=== PATIENT | female | born 1935 | race Caucasian/White ===

== ENCOUNTER 2017-10-12 16:26 | Emergency (ER) | payer MEDICARE, OTHER ==
[2017-10-12] MEDS ORDERED: Sodium Chloride 0.9% 10 ML Syringe FLUSH PRN (16:42)
[2017-10-12 17:21] VITALS: BP 149/76
[2017-10-12 17:38] LABS: CHLORIDE,CL 103 mmol/L (98-107); SODIUM,NA 141 mmol/L (136-145)
[2017-10-12] MEDS ORDERED: Acetaminophen/HYDROcodone 325-10 MG Tab PO ONE (17:38)
--- NOTE | 2017-10-12 17:46 | EDM.PDOC ---
ED HPI GENERAL MEDICAL PROBLEM - General Chief Complaint: General Time Seen by Provider: 10/12/17 16:30 Source of Information: Reports: Patient History Limitations: Reports: No Limitations - History of Present Illness INITIAL COMMENTS - FREE TEXT/NARRATIVE: Pt. presents to ER with complaints of pain across her upper back. Pt. states that she was going out to feed her cat earlier today when the discomfort started. She states that it was a dull pain across her upper back. She states that she felt somewhat lightheaded at the onset of symptoms. She was no diaphoretic. No shortness of breath. No nausea, vomiting, or diarrhea. She has a history of a AAA which they are monitoring and treating conservatively. She is adamant that she does not want to be in the hospital and questions why she needed to be seen in the ER. She states that the discomfort lasted a few seconds and resolved. Onset: Today Location: Reports: Back Quality: Reports: Ache, Dull - Related Data Allergies Allergy/AdvReac Type Severity Reaction Status Date / Time No Known Allergies Allergy Verified 10/12/17 16:52 Home Meds: Home Meds Cyclobenzaprine [Flexeril] 10 mg PO BID PRN 07/14/14 [History] Gabapentin 100 mg PO TID 07/14/14 [History] Hydrocodone/Acetaminophen [Hydrocodon-Acetaminophn 10-325] 1 cap PO Q4H PRN [History] Metoprolol Tartrate [Lopressor] 25 mg PO BEDTIME 07/14/14 [History] Metoprolol Tartrate [Lopressor] 50 mg PO DAILY 07/14/14 [History] Pantoprazole [Protonix] 40 mg PO DAILY 07/14/14 [History] Social & Family History - Tobacco Use Smoking Status *Q: Former Smoker Years of Tobacco use: 40 Used Tobacco, but Quit: Yes Month/Year Tobacco Last Used: Jun 2016 - Alcohol Use Days Per Week of Alcohol Use: 0 - Recreational Drug Use Recreational Drug Use: No ED ROS GENERAL - Review of Systems Review Of Systems: See Below Constitutional: Reports: No Symptoms HEENT: Reports: No Symptoms Respiratory: Reports: No Symptoms Cardiovascular: Reports: No Symptoms Endocrine: Reports: No Symptoms GI/Abdominal: Reports: No Symptoms : Reports: No Symptoms Musculoskeletal: Reports: Back Pain (upper back) Skin: Reports: No Symptoms Neurological: Reports: No Symptoms Psychiatric: Reports: No Symptoms Hematologic/Lymphatic: Reports: No Symptoms Immunologic: Reports: No Symptoms ED EXAM, GENERAL - Physical Exam Exam: See Below Exam Limited By: No Limitations General Appearance: Alert, WD/WN, No Apparent Distress Ears: Normal External Exam, Normal Canal, Hearing Grossly Normal, Normal TMs Ear Exam: Bilateral Ear: Auricle Normal, Canal Normal, TM normal Nose: Normal Inspection, Normal Mucosa, No Blood Throat/Mouth: Normal Inspection, Normal Lips, Normal Teeth, Normal Gums, Normal Oropharynx, Normal Voice, No Airway Compromise Head: Atraumatic, Normocephalic Neck: Normal Inspection, Supple, Non-Tender, Full Range of Motion Respiratory/Chest: No Respiratory Distress, Lungs Clear, Normal Breath Sounds, No Accessory Muscle Use, Chest Non-Tender Cardiovascular: Normal Peripheral Pulses, Regular Rate, Rhythm, No Edema, No Gallop, No JVD, No Murmur, No Rub Peripheral Pulses: 3+: Posterior Tibial (L), Posterior Tibial (R), Dorsalis Pedis (L), Dorsalis Pedis (R) GI/Abdominal: Normal Bowel Sounds, Soft, Non-Tender, No Organomegaly, No Distention, No Abnormal Bruit, No Mass (Female) Exam: Normal External Exam, Normal Speculum Exam, Normal Bimanual Exam Rectal (Female) Exam: Deferred Back Exam: Normal Inspection, Full Range of Motion, Other (upper back pain) Extremities: Normal Inspection, Normal Range of Motion, Non-Tender, Normal Capillary Refill, No Pedal Edema Neurological: Alert, Oriented, CN II-XII Intact, Normal Cognition, Normal Gait, Normal Reflexes, No Motor/Sensory Deficits Psychiatric: Normal Affect, Normal Mood Skin Exam: Warm, Dry, Intact, Normal Color, No Rash Lymphatic: No Adenopathy EKG INTERPRETATION EKG Interpretation Comments: ectopic atrial rhythm withPVCs,No acute ST changes. Evidence of LVH and intraventricular conduction delay. Course - Vital Signs Last Recorded V/S: Last Vital Signs Temp 35.7 C 10/12/17 16:30 Pulse 99 10/12/17 16:30 Resp 20 10/12/17 16:30 BP 149/76 H 10/12/17 16:30 Pulse Ox 98 10/12/17 16:30 - Orders/Labs/Meds Orders: Active Orders 24 hr Category Date Time Status EKG Documentation Completion [RC] STAT Care 10/12/17 16:42 Active Chest Abdomen Pelvis w Cont [CT] Stat Exams 10/12/17 17:50 Taken Peripheral IV Insertion Adult [OM.PC] Routine Oth 10/12/17 16:42 Ordered Labs: Laboratory Tests 10/12/17 10/12/17 10/12/17 Range/Units 17:06 17:06 17:06 WBC 5.4 (4.0-10.0) x10^3/uL RBC 3.74 L (4.00-5.50) x10^6/uL Hgb 12.5 (12.0-16.0) g/dL Hct 37.3 (33.0-47.0) % MCV 99.7 H (78.0-93.0) fL MCH 33.4 H (26.0-32.0) pg MCHC 33.5 (32.0-36.0) g/dL RDW Coeff of [place] 13.6 (10.0-15.0) % Plt Count 222 (130-400) x10^3/uL Neut % (Auto) 69.9 (50.0-80.0) % Lymph % (Auto) 17.9 L (25.0-50.0) % [place] % (Auto) 10.5 (2.0-11.0) % Eos % (Auto) 1.5 (0.0-4.0) % Baso % (Auto) 0.2 (0.2-1.2) % PT 10.0 (9.8-11.8) SEC INR 0.9 L (2.0-3.5) D-Dimer, Quantitative 0.89 H (<=0.58) mg/LFEU Sodium 141 (136-145) mmol/L Potassium 4.2 (3.5-5.1) mmol/L Chloride 103 (98-107) mmol/L Carbon Dioxide 29 (21-32) mmol/L Anion Gap 13.2 (10-20) mmol/L BUN 26 H (7-18) mg/dL Creatinine 1.1 H (0.55-1.02) mg/dL Est Cr Clr Drug Dosing 34.47 mL/min Estimated GFR (MDRD) 48 Glucose 134 H (74-106) mg/dL Calcium 8.8 (8.5-10.1) mg/dL Corrected Calcium 9.04 (8.5-10.1) mg/dL Total Bilirubin 0.4 (0.2-1.0) mg/dL AST 19 (15-37) U/L ALT 29 (14-59) U/L Alkaline Phosphatase 50 (46-116) U/L Troponin I < 0.017 (<=0.056) ng/mL C-Reactive Protein < 0.2 (<=0.9) mg/dL Total Protein 7.0 (6.4-8.2) g/dL Albumin 3.7 (3.4-5.0) g/dL Globulin 3.3 Albumin/Globulin Ratio 1.12 Meds: Medications Discontinued Medications Generic Name Dose Route Start Last Admin Trade Name Freq PRN Reason Stop Dose Admin Hydrocodone Bitart/Acetaminophen 1 tab 10/12/17 17:38 10/12/17 17:46 [place] 325-10 Mg PO 10/12/17 17:39 1 tab ONETIME ONE Administration Iopamidol 100 ml 10/12/17 17:53 10/12/17 18:02 Isovue-300 (61%) IVPUSH 10/12/17 17:54 100 ml ONETIME ONE Administration Sodium Chloride 10 ml 10/12/17 16:42 Saline Flush FLUSH ASDIRECTED PRN Keep Vein Open - Radiology Interpretation Free Text/Narrative:: CT chest, abdomen, pelvis obtained. No new aneurysm noted. No other cause for discomfort identified. - Re-Assessments/Exams Free Text/Narrative Re-Assessment/Exam: Pt. had no further recurrence of the pain. She was offered observation admission for serial troponin, but adamantly refused, stating she needed to take care of her cat and her . Departure - Departure Time of Disposition: 19:10 Disposition: Home, Self-Care 01 Clinical Impression: Abdominal aortic aneurysm (AAA) - Discharge Information Instructions: Abdominal Aortic Aneurysm, [id number] Referrals: Yaa Jack MD [Primary Care Provider] - Forms: ED Department Discharge Additional Instructions: Return to ER if you have any increased discomfort, lightheadedness, or chest pain. Call [facility] at [phone] on Sunday to set up a followup appointment for your heart. Return to ER if you decide you want to be admitted. - My Orders Last 24 Hours: My Active Orders 10/12/17 16:42 EKG Documentation Completion [RC] STAT Peripheral IV Insertion Adult [OM.PC] Routine 10/12/17 17:50 Chest Abdomen Pelvis w Cont [CT] Stat - Assessment/Plan Last 24 Hours: My Active Orders 10/12/17 16:42 EKG Documentation Completion [RC] STAT Peripheral IV Insertion Adult [OM.PC] Routine 10/12/17 17:50 Chest Abdomen Pelvis w Cont [CT] Stat Assessment:: Upper back pain, resolved. Plan: Follow-up with Dr. Jack next week. Return to ER if you decide you want be admitted for observation to rule out heart attack. Also return if you have any increased discomfort, shortness of breath, chest pain, nausea, or vomiting.
[2017-10-12] MEDS ORDERED: Iopamidol 612 MG/ML 100 ML Bottle IVPUSH ONE (17:53)
== END 2017-10-12 19:03 | disposition home or self-care (01) ==
LOC: VM.ED 16:26
DX: I71.4 Abdominal aortic aneurysm, without rupture (principal); Z79.899 Other long term (current) drug therapy; Z87.891 Personal history of nicotine dependence
CPT/HCPCS: 36415; 71260; 74177; 80053; 84484; 85025; 85379; 85610; 86140; 93005; 99285; A9270-GY; Q9967

== ENCOUNTER 2017-11-15 18:28 | Emergency (ER) | payer MEDICARE, OTHER ==
[2017-11-15 18:38] VITALS: BP 140/92
[2017-11-15 19:46] LABS: CHLORIDE,CL 103 mmol/L (98-107); SODIUM,NA 142 mmol/L (136-145)
--- NOTE | 2017-11-15 19:57 | EDM.PDOC ---
ED HPI GENERAL MEDICAL PROBLEM - General Chief Complaint: Back Pain or Injury Stated Complaint: back pain Time Seen by Provider: 11/15/17 18:30 Source of Information: Reports: Patient, Family, RN, RN Notes Reviewed History Limitations: Reports: No Limitations - History of Present Illness INITIAL COMMENTS - FREE TEXT/NARRATIVE: Patient presents to the ED at [facility] complaining of upper back pain. Previous work up 3 weeks ago was negative for any cardiac issues. Was offered admission but declined. Patient is pain free at time of assessment. Onset: Unknown/Unsure Upper back Pain Score (Numeric/FACES): 9 - Related Data Allergies Allergy/AdvReac Type Severity Reaction Status Date / Time No Known Allergies Allergy Verified 10/12/17 16:52 Home Meds: Home Meds Cyclobenzaprine [Flexeril] 10 mg PO BID PRN 07/14/14 [History] Gabapentin 100 mg PO TID 07/14/14 [History] Hydrocodone/Acetaminophen [Hydrocodon-Acetaminophn 10-325] 1 cap PO Q4H PRN [History] Metoprolol Tartrate [Lopressor] 25 mg PO BEDTIME 07/14/14 [History] Metoprolol Tartrate [Lopressor] 50 mg PO DAILY 07/14/14 [History] Pantoprazole [Protonix] 40 mg PO DAILY 07/14/14 [History] Past Medical History HEENT History: Reports: Cataract Cardiovascular History: Reports: High Cholesterol, Hypertension, Other (See Below) Other Cardiovascular History: mitral valve disorder. Abdominal aortic aneurysm without rupture. peripheral edema Respiratory History: Reports: Other (See Below) Other Respiratory History: panlobular emphysema. dyspnea on exertion Gastrointestinal History: Reports: GERD, Other (See Below) Other Gastrointestinal History: mass of right inguinal region Genitourinary History: Reports: Other (See Below) Other Genitourinary History: chronic urethritis [employer] History: Reports: Other (See Below) Other OB/BYN History: atrophic vaginitis. vaginal itching Musculoskeletal History: Reports: Back Pain, Chronic, Osteoporosis Other Musculoskeletal History: scoliosis deformity of spine. closed fx of rib. closed fx of left shoulder. lumbar facet arthropathy Endocrine/Metabolic History: Reports: Osteoporosis, Vitamin D Deficiency, Other (See Below) Other Endocrine/Metabolic History: abnormal thyroid blood test Dermatologic History: Reports: Other (See Below) Other Dermatologic History: atopic dermatitis. ulcer of elbow - Past Surgical History HEENT Surgical History: Reports: Tonsillectomy Female Surgical History: Reports: Cystoscopy, Tubal Ligation Musculoskeletal Surgical History: Reports: Other (See Below) Other Musculoskeletal Surgeries/Procedures:: lumbar radiculopathy. degeneration of lumbar or lumbosacral intervertebral disc ED ROS GENERAL - Review of Systems Review Of Systems: See Below Constitutional: Denies: Fever, Chills, Weakness Respiratory: Denies: Shortness of Breath, Cough Cardiovascular: Reports: Chest Pain. Denies: Palpitations GI/Abdominal: Denies: Abdominal Pain, Nausea, Vomiting Skin: Reports: No Symptoms Neurological: Reports: No Symptoms. Denies: Dizziness, Headache ED EXAM, UPPER BACK/NECK PAIN - Physical Exam Exam: See Below Exam Limited By: No Limitations General Appearance: Alert, No Apparent Distress Nexus Criteria: No: Altered Level of Consciousness, Focal Neurological Deficit Cardiovascular/Respiratory: Regular Rate, Rhythm, No M/R/G GI/Abdominal: Normal Bowel Sounds, Soft, Non-Tender Back Exam: Normal Inspection, Full Range of Motion, Muscle Spasm Neurologic: Alert, Oriented x 3 Skin Exam: Normal Color, Warm/Dry Course - Vital Signs Last Recorded V/S: Last Vital Signs Temp 36.0 C 11/15/17 18:34 Pulse 103 H 11/15/17 18:34 Resp 18 11/15/17 18:34 BP 140/92 H 11/15/17 18:34 Pulse Ox 98 11/15/17 18:34 - Orders/Labs/Meds Orders: Active Orders 24 hr Category Date Time Status EKG 12 Lead [EKG Documentation Completion] [RC] STAT Care 11/15/17 19:01 Active BASIC METABOLIC PANEL,BMP [CHEM] Stat Lab 11/15/17 19:17 Received CREATINE KINASE,CK [CHEM] Stat Lab 11/15/17 19:17 Received TROPONIN I [CHEM] Stat Lab 11/15/17 19:17 Received Labs: Laboratory Tests 11/15/17 Range/Units 19:17 WBC 5.9 (4.0-10.0) x10^3/uL RBC 3.71 L (4.00-5.50) x10^6/uL Hgb 12.5 (12.0-16.0) g/dL Hct 37.9 (33.0-47.0) % MCV 102.2 H (78.0-93.0) fL MCH 33.7 H (26.0-32.0) pg MCHC 33.0 (32.0-36.0) g/dL RDW Coeff of [place] 13.5 (10.0-15.0) % Plt Count 252 (130-400) x10^3/uL Neut % (Auto) 67.6 (50.0-80.0) % Lymph % (Auto) 18.9 L (25.0-50.0) % [place] % (Auto) 10.8 (2.0-11.0) % Eos % (Auto) 2.4 (0.0-4.0) % Baso % (Auto) 0.3 (0.2-1.2) % Departure - Departure Time of Disposition: 19:58 Disposition: Home, Self-Care 01 Condition: Good Clinical Impression: Atypical chest pain - Discharge Information Instructions: Nonspecific Chest Pain Referrals: Yaa Jack MD [Primary Care Provider] - Additional Instructions: SEe your PCP - Problem List Review Problem List Initiated/Reviewed/Updated: Yes - My Orders Last 24 Hours: My Active Orders 11/15/17 19:01 EKG 12 Lead [EKG Documentation Completion] [RC] STAT 11/15/17 19:17 BASIC METABOLIC PANEL,BMP [CHEM] Stat CREATINE KINASE,CK [CHEM] Stat TROPONIN I [CHEM] Stat - Assessment/Plan Last 24 Hours: My Active Orders 11/15/17 19:01 EKG 12 Lead [EKG Documentation Completion] [RC] STAT 11/15/17 19:17 BASIC METABOLIC PANEL,BMP [CHEM] Stat CREATINE KINASE,CK [CHEM] Stat TROPONIN I [CHEM] Stat Assessment:: Atypical chest pain Plan: Need stress test. See PCP for further work up no emergency found today
== END 2017-11-15 20:10 | disposition home or self-care (01) ==
LOC: VM.ED 18:28 → SUPCPDRO 18:28 → VM.ED 20:10
DX: R07.89 Other chest pain (principal); I10 Essential (primary) hypertension; Z79.899 Other long term (current) drug therapy
CPT/HCPCS: 36415; 80048; 82550; 84484; 85025; 93005; 99284

== ENCOUNTER 2019-07-13 10:06 | Emergency (ER) | payer MEDICARE, OTHER ==
[2019-07-13 10:15] VITALS: BP 122/65; PULSE 87
[2019-07-13] MEDS ORDERED: LORazepam 0.5 MG Tab PO ONE (10:56)
--- NOTE | 2019-07-13 11:14 | CR ---
[id number] RAD/RAD Chest PA And Lateral EXAM: FRONTAL AND LATERAL CHEST INDICATION: SYNCOPE, BRADYCARDIA. COMPARISON: June 15, 2018. DISCUSSION: Hyperinflation is compatible with chronic obstructive pulmonary disease. Mild scattered parenchymal scarring with no acute infiltrates identified. Minimal left effusion. Multiple chronic right rib fractures. Chronic prominence of the mediastinal contour with tortuosity of the thoracic aorta. Borderline cardiomegaly without evidence of congestive heart failure. Moderate chronic mid thoracic and mild lower thoracic compression fractures. IMPRESSION: 1. Minimal left pleural effusion. 2. Otherwise stable exam. Rajinder Farnsworth MD 07/13/19 [id number] Thank you for allowing us to participate in the care of your patient.
[2019-07-13 11:21] LABS: CHLORIDE,CL 101 mmol/L (98-107); SODIUM,NA 138 mmol/L (136-145)
[2019-07-13 11:27] LABS: ANION GAP 10.1 mmol/L (10-20)
[2019-07-13] MEDS ORDERED: Furosemide 40 MG Tab PO ONE (11:47)
[2019-07-13] MEDS ORDERED: Take Home: LORazepam 0.5 MG Tab, 2 Tab Pack PO ONE (11:47)
--- NOTE | 2019-07-13 13:16 | EDM.PDOC ---
ED HPI GENERAL MEDICAL PROBLEM - General Chief Complaint: Respiratory Problem Time Seen by Provider: 07/13/19 10:15 Source of Information: Reports: Patient, Other (neighbor) History Limitations: Reports: No Limitations - History of Present Illness INITIAL COMMENTS - FREE TEXT/NARRATIVE: Patient presents to the ER with complaints of chest pain and SOB. Patient states she has had right sided chest pain since 12 years ago from a fall. Patient states she has had SOB for some time, due to history of CHF. patient states she smokes about 5 cigarettes a day, heavy smoker in the past.States she had mold in her house and had her house cleaned but yesterday felt more SOB and thought it was from the possible residual mold in her house. She went over to her neighbors and spent the night there. Her neighbor brought her to the ER this morning due to the patient being worried about her SOB. Patient states she has edema in her legs. Patient passed November 2018. Neighbor states she has discussed living situations with patient, possibly moving her to an assisted living or elderly apartment. Neighbor believes patient needs help with taking her medication appropriately. Patient denies palpitations, productive cough, or fever. Adjustment of her diuretics has been complicated due to adjusting to her kidney disease. Patient currently takes lasix 20 mg daily. Onset Date: 07/11/19 Location: Reports: Chest Associated Symptoms: Reports: Shortness of Breath - Related Data Allergies Allergy/AdvReac Type Severity Reaction Status Date / Time No Known Allergies Allergy Verified 07/13/19 10:17 Home Meds: Home Meds Cyclobenzaprine [Flexeril] 10 mg PO TID PRN 07/14/14 [History] Hydrocodone/Acetaminophen [Hydrocodon-Acetaminophn 10-325] 1 cap PO TID [History] Pantoprazole [Protonix] 40 mg PO DAILY 07/14/14 [History] Acetaminophen [Tylenol] 650 mg PO Q6H PRN 06/15/18 [History] Alendronate [Fosamax] 70 mg PO ASDIRECTED 06/15/18 [History] Calcitonin ([place]) [Miacalcin Nasal [place]] 1 spray NS DAILY 06/15/18 [History] Calcium Carb, Citrate/Vit D3 [Citracal + D ER] 1 each PO BID 06/15/18 [History] Cholecalciferol (Vitamin D3) [D] 4,000 unit PO DAILY 06/15/18 [History] Docusate Sodium [Colace] 100 mg PO BID PRN 06/15/18 [History] Ipratropium/Albuterol Sulfate [Combivent Respimat Inhal [place]] 1 puff IH Q4H [History] Naproxen Sodium [Aleve] 220 mg PO BID PRN 06/15/18 [History] Polyethylene Glycol 3350 [MiraLAX] 32 gm PO DAILY 06/15/18 [History] Pramoxine HCl/Zinc Oxide [Hemorrhoid 1%-12.5% Ointment] 1 ea TP BID PRN [History] atorvaSTATin [Lipitor] 10 mg PO BEDTIME 06/15/18 [History] estradioL [Estrace Vaginal] 1 applic VAG BEDTIME PRN 06/15/18 [History] Carvedilol [Coreg] 12.5 mg PO BID 07/13/19 [History] Furosemide [Lasix] 20 mg PO DAILY 07/13/19 [History] Past Medical History HEENT History: Reports: Cataract Cardiovascular History: Reports: High Cholesterol, Hypertension, Other (See Below) Other Cardiovascular History: mitral valve disorder. Abdominal aortic aneurysm without rupture. peripheral edema Respiratory History: Reports: Other (See Below) Other Respiratory History: panlobular emphysema. dyspnea on exertion Gastrointestinal History: Reports: GERD, Other (See Below) Other Gastrointestinal History: mass of right inguinal region Genitourinary History: Reports: Other (See Below) Other Genitourinary History: chronic urethritis [employer] History: Reports: Other (See Below) Other [employer] History: atrophic vaginitis. vaginal itching Musculoskeletal History: Reports: Back Pain, Chronic, Osteoporosis Other Musculoskeletal History: scoliosis deformity of spine. closed fx of rib. closed fx of left shoulder. lumbar facet arthropathy Endocrine/Metabolic History: Reports: Osteoporosis, Vitamin D Deficiency, Other (See Below) Other Endocrine/Metabolic History: abnormal thyroid blood test Dermatologic History: Reports: Other (See Below) Other Dermatologic History: atopic dermatitis. ulcer of elbow - Past Surgical History HEENT Surgical History: Reports: Tonsillectomy Female Surgical History: Reports: Cystoscopy, Tubal Ligation Musculoskeletal Surgical History: Reports: Other (See Below) Other Musculoskeletal Surgeries/Procedures:: lumbar radiculopathy. degeneration of lumbar or lumbosacral intervertebral disc Social & Family History - Tobacco Use Smoking Status *Q: Current Every Day Smoker Years of Tobacco use: 30 Packs/Tins Daily: 0.2 - Recreational Drug Use Recreational Drug Use: No ED ROS GENERAL - Review of Systems Review Of Systems: See Below Constitutional: Reports: No Symptoms HEENT: Reports: No Symptoms. Denies: Vertigo Respiratory: Reports: Shortness of Breath. Denies: Wheezing, Cough, Sputum Cardiovascular: Reports: Chest Pain, Edema. Denies: Blood Pressure Problem, Claudication, Dyspnea on Exertion, Lightheadedness, Palpitations, Syncope Endocrine: Reports: No Symptoms GI/Abdominal: Reports: No Symptoms : Reports: No Symptoms Musculoskeletal: Reports: No Symptoms Skin: Reports: No Symptoms Neurological: Reports: No Symptoms Psychiatric: Reports: Anxiety Hematologic/Lymphatic: Reports: No Symptoms Immunologic: Reports: No Symptoms ED EXAM, GENERAL - Physical Exam Exam: See Below Exam Limited By: No Limitations General Appearance: Alert, Anxious Ears: Normal External Exam Nose: Normal Inspection Throat/Mouth: Normal Lips Head: Atraumatic, Normocephalic Neck: Normal Inspection Respiratory/Chest: Lungs Clear, Normal Breath Sounds Cardiovascular: Regular Rate, Rhythm, No JVD, No Murmur, Other (bilateral lower extremity edema ) (Female) Exam: Deferred Rectal (Female) Exam: Deferred Back Exam: Other (kyphosis) Extremities: Normal Inspection Neurological: Alert, Oriented, CN II-XII Intact, Normal Cognition, Normal Gait, Normal Reflexes Psychiatric: Normal Affect, Anxious Skin Exam: Warm, Dry, Intact, Normal Color, No Rash Lymphatic: No Adenopathy Course - Vital Signs Last Recorded V/S: Last Vital Signs Temp 36.7 C 07/13/19 10:06 Pulse 87 07/13/19 10:06 Resp 18 07/13/19 10:06 BP 122/65 07/13/19 10:06 Pulse Ox 94 L 07/13/19 10:06 - Orders/Labs/Meds Orders: Active Orders 24 hr Category Date Time Status EKG Documentation Completion [RC] STAT Care 07/13/19 10:29 Active Labs: Laboratory Tests 07/13/19 07/13/19 07/13/19 Range/Units 10:45 10:45 10:45 WBC 4.8 (4.0-10.0) x10^3/uL RBC 3.58 L (4.00-5.50) x10^6/uL Hgb 11.6 L (12.0-16.0) g/dL Hct 35.3 (33.0-47.0) % MCV 98.6 H D (78.0-93.0) fL MCH 32.4 H (26.0-32.0) pg MCHC 32.9 (32.0-36.0) g/dL RDW Coeff of [place] 13.8 (10.0-15.0) % Plt Count 210 (130-400) x10^3/uL Neut % (Auto) 72.0 (50.0-80.0) % Lymph % (Auto) 17.1 L (25.0-50.0) % [place] % (Auto) 9.2 (2.0-11.0) % Eos % (Auto) 1.3 (0.0-4.0) % Baso % (Auto) 0.4 (0.2-1.2) % PT 11.0 (10.0-12.8) SEC INR 1.0 L (2.0-3.5) Sodium 138 (136-145) mmol/L Potassium 4.1 (3.5-5.1) mmol/L Chloride 101 (98-107) mmol/L Carbon Dioxide 31 (21-32) mmol/L Anion Gap 10.1 (10-20) mmol/L BUN 20 H (7-18) mg/dL Creatinine 1.2 H (0.55-1.02) mg/dL Est Cr Clr Drug Dosing TNP Estimated GFR (MDRD) 43 Glucose 123 H (74-106) mg/dL Lactic Acid (0.4-2.0) mmol/L Calcium 8.9 (8.5-10.1) mg/dL Corrected Calcium 9.54 (8.5-10.1) mg/dL Magnesium 2.2 (1.8-2.4) mg/dL Total Bilirubin 0.8 (0.2-1.0) mg/dL AST 14 L (15-37) U/L ALT 15 (14-59) U/L Alkaline Phosphatase 41 L (46-116) U/L Troponin I < 0.017 (<=0.056) ng/mL C-Reactive Protein < 0.2 (<=0.9) mg/dL NT-Pro-B Natriuret Pep 39280 H (<=450) pg/mL Total Protein 6.3 L (6.4-8.2) g/dL Albumin 3.2 L (3.4-5.0) g/dL Globulin 3.1 Albumin/Globulin Ratio 1.03 07/13/19 Range/Units 10:45 WBC (4.0-10.0) x10^3/uL RBC (4.00-5.50) x10^6/uL Hgb (12.0-16.0) g/dL Hct (33.0-47.0) % MCV (78.0-93.0) fL MCH (26.0-32.0) pg MCHC (32.0-36.0) g/dL RDW Coeff of [place] (10.0-15.0) % Plt Count (130-400) x10^3/uL Neut % (Auto) (50.0-80.0) % Lymph % (Auto) (25.0-50.0) % [place] % (Auto) (2.0-11.0) % Eos % (Auto) (0.0-4.0) % Baso % (Auto) (0.2-1.2) % PT (10.0-12.8) SEC INR (2.0-3.5) Sodium (136-145) mmol/L Potassium (3.5-5.1) mmol/L Chloride (98-107) mmol/L Carbon Dioxide (21-32) mmol/L Anion Gap (10-20) mmol/L BUN (7-18) mg/dL Creatinine (0.55-1.02) mg/dL Est Cr Clr Drug Dosing Estimated GFR (MDRD) Glucose (74-106) mg/dL Lactic Acid 0.9 (0.4-2.0) mmol/L Calcium (8.5-10.1) mg/dL Corrected Calcium (8.5-10.1) mg/dL Magnesium (1.8-2.4) mg/dL Total Bilirubin (0.2-1.0) mg/dL AST (15-37) U/L ALT (14-59) U/L Alkaline Phosphatase (46-116) U/L Troponin I (<=0.056) ng/mL C-Reactive Protein (<=0.9) mg/dL NT-Pro-B Natriuret Pep (<=450) pg/mL Total Protein (6.4-8.2) g/dL Albumin (3.4-5.0) g/dL Globulin Albumin/Globulin Ratio Meds: Medications Discontinued Medications Generic Name Dose Route Start Last Admin Trade Name [place]ara PRN Reason Stop Dose Admin Furosemide 40 mg 07/13/19 11:47 07/13/19 11:53 Lasix PO 07/13/19 11:48 40 mg ONETIME ONE Administration Lorazepam 1 mg 07/13/19 10:56 07/13/19 11:02 Ativan PO 07/13/19 10:57 1 mg ONETIME ONE Administration Lorazepam 1 packet 07/13/19 11:47 07/13/19 11:54 Take Home: Lorazepam 0.5 Mg, 2 Tab Pack PO 07/13/19 11:48 1 packet ONETIME ONE Administration Departure - Departure Time of Disposition: 12:30 Disposition: Home, Self-Care 01 Clinical Impression: Congestive heart failure, Anxiety - Discharge Information Instructions: Generalized Anxiety Disorder, Adult, Lorazepam tablets, Heart Failure, [id number] Referrals: Yaa Jack MD [Primary Care Provider] - Forms: ED Department Discharge Additional Instructions: Lorazepam 0.5mg 1 tab 3 times daily as needed for anxiety Start lasix 20mg tomorrow. We will do this for 4 days, then recheck your labs. Continue with your other medications as you have been. Follow-up in clinic tomorrow or Sunday. Return to ER if you have chest pain, shortness of breath, or palpitations. Sepsis Event Note - Evaluation Sepsis Screening Result: No Definite Risk - Focused Exam Vital Signs: Vital Signs Temp Pulse Resp BP Pulse Ox 07/13/19 10:06 36.7 C 87 18 122/65 94 L Date Exam was Performed: 07/13/19 Time Exam was Performed: 13:04 - My Orders Last 24 Hours: My Active Orders 07/13/19 10:29 EKG Documentation Completion [RC] STAT - Assessment/Plan Last 24 Hours: My Active Orders 07/13/19 10:29 EKG Documentation Completion [RC] STAT Plan: Home to rest. Ativan 1 mg to take as needed for anxiety. Lasix 20 mg daily for 4 days Continue taking home daily medications, including Lasix 20 mg Follow up with PCP in 1-2 days. Recheck kidney function in clinic tomorrow or Sunday. Return to ER if any SOB, palpitations, worsening chest pain.
[2019-07-13] MEDS ORDERED: Sodium Chloride 0.9% 1,000 ML IV ONE (13:33)
== END 2019-07-13 12:11 | disposition home or self-care (01) ==
LOC: VM.ED 10:06
DX: I11.0 Hypertensive heart disease with heart failure (principal); I50.9 Heart failure, unspecified; F41.9 Anxiety disorder, unspecified; J43.1 Panlobular emphysema; E78.00 Pure hypercholesterolemia, unspecified; M81.0 Age-related osteoporosis without current pathological fracture; F17.210 Nicotine dependence, cigarettes, uncomplicated; E55.9 Vitamin D deficiency, unspecified; Z79.899 Other long term (current) drug therapy
CPT/HCPCS: 36415; 71046; 80053; 83605; 83735; 83880; 84484; 85025; 85610; 86140; 93005; 99284-GF; 99285-25; A9270-GY

== ENCOUNTER 2019-08-09 11:34 | Emergency (ER) | payer MEDICARE, OTHER ==
[2019-08-09 12:47] VITALS: BP 125/70; PULSE 87
--- NOTE | 2019-08-09 13:09 | EDM.PDOC ---
ED HPI GENERAL MEDICAL PROBLEM - General Chief Complaint: ENT Problem Stated Complaint: GLANDS SWOLLEN Time Seen by Provider: 08/09/19 12:50 Source of Information: Reports: Patient History Limitations: Reports: No Limitations - History of Present Illness INITIAL COMMENTS - FREE TEXT/NARRATIVE: Patient presents to ER with complaints of a sore throat, cough with productive phlegm. Was exposed to fur coat sewer gas on Sunday in her basement, feels like it triggered issues for her. She was seen by her doctor this week and thought her symptoms would resolve on their own. Is noting increased phlegm with green sputum now, feels more short of breath. Does have intermittent wheezing. She has history of COPD, does use an inhaler at home but does not feel it is helping. No fevers. Mild sinus congestion and drainage. No nausea/vomiting or abdominal pain. Oxygen saturation 95% on room air. Onset: Gradual Duration: Day(s):, Getting Worse Location: Reports: Head, Chest Quality: Reports: Ache Severity: Moderate Improves with: Reports: None Associated Symptoms: Reports: Cough, cough w sputum, Malaise, Shortness of Breath. Denies: Confusion, Chest Pain, Fever/Chills, Loss of Appetite, Nausea/ Vomiting Throat Pain Score (Numeric/FACES): 8 - Related Data Allergies Allergy/AdvReac Type Severity Reaction Status Date / Time No Known Allergies Allergy Verified 08/09/19 12:49 Home Meds: Home Meds Cyclobenzaprine [Flexeril] 10 mg PO TID PRN 07/14/14 [History] Hydrocodone/Acetaminophen [Hydrocodon-Acetaminophn 10-325] 1 cap PO TID [History] Pantoprazole [Protonix] 40 mg PO DAILY 07/14/14 [History] Acetaminophen [Tylenol] 650 mg PO Q6H PRN 06/15/18 [History] Alendronate [Fosamax] 70 mg PO ASDIRECTED 06/15/18 [History] Calcitonin ([place]) [Miacalcin Nasal [place]] 1 spray NS DAILY 06/15/18 [History] Calcium Carb, Citrate/Vit D3 [Citracal + D ER] 1 each PO BID 06/15/18 [History] Cholecalciferol (Vitamin D3) [D-2000] 4,000 unit PO DAILY 06/15/18 [History] Docusate Sodium [Colace] 100 mg PO BID PRN 06/15/18 [History] Ipratropium/Albuterol Sulfate [Combivent Respimat Inhal [place]] 1 puff IH Q4H [History] Naproxen Sodium [Aleve] 220 mg PO BID PRN 06/15/18 [History] Pramoxine HCl/Zinc Oxide [Hemorrhoid 1%-12.5% Ointment] 1 ea TP BID PRN [History] atorvaSTATin [Lipitor] 10 mg PO BEDTIME 06/15/18 [History] estradioL [Estrace Vaginal] 1 applic VAG BEDTIME PRN 06/15/18 [History] polyethylene glycoL 3350 [MiraLAX] 32 gm PO DAILY 06/15/18 [History] Carvedilol [Coreg] 12.5 mg PO BID 07/13/19 [History] Furosemide [Lasix] 20 mg PO DAILY 07/13/19 [History] Past Medical History HEENT History: Reports: Cataract Cardiovascular History: Reports: High Cholesterol, Hypertension, Other (See Below) Other Cardiovascular History: mitral valve disorder. Abdominal aortic aneurysm without rupture. peripheral edema Respiratory History: Reports: Other (See Below) Other Respiratory History: panlobular emphysema. dyspnea on exertion Gastrointestinal History: Reports: GERD, Other (See Below) Other Gastrointestinal History: mass of right inguinal region Genitourinary History: Reports: Other (See Below) Other Genitourinary History: chronic urethritis [employer] History: Reports: Other (See Below) Other [employer] History: atrophic vaginitis. vaginal itching Musculoskeletal History: Reports: Back Pain, Chronic, Osteoporosis Other Musculoskeletal History: scoliosis deformity of spine. closed fx of rib. closed fx of left shoulder. lumbar facet arthropathy Endocrine/Metabolic History: Reports: Osteoporosis, Vitamin D Deficiency, Other (See Below) Other Endocrine/Metabolic History: abnormal thyroid blood test Dermatologic History: Reports: Other (See Below) Other Dermatologic History: atopic dermatitis. ulcer of elbow - Past Surgical History HEENT Surgical History: Reports: Tonsillectomy Female Surgical History: Reports: Cystoscopy, Tubal Ligation Musculoskeletal Surgical History: Reports: Other (See Below) Other Musculoskeletal Surgeries/Procedures:: lumbar radiculopathy. degeneration of lumbar or lumbosacral intervertebral disc Social & Family History - Tobacco Use Smoking Status *Q: Current Every Day Smoker Years of Tobacco use: 40 Packs/Tins Daily: 0.2 - Recreational Drug Use Recreational Drug Use: No ED ROS ENT - Review of Systems Review Of Systems: See Below Constitutional: Reports: Malaise, Weakness, Fatigue. Denies: Fever, Chills, Decreased Appetite HEENT: Reports: Rhinitis, Sinus Problem, Throat Pain. Denies: Ear Pain, Vertigo Respiratory: Reports: Shortness of Breath, Cough, Sputum. Denies: Wheezing Cardiovascular: Denies: Chest Pain, Edema, Lightheadedness Endocrine: Denies: Fatigue GI/Abdominal: Denies: Abdominal Pain, Nausea, Vomiting : Reports: No Symptoms Musculoskeletal: Reports: No Symptoms Skin: Reports: No Symptoms Neurological: Reports: No Symptoms ED EXAM, ENT - Physical Exam Exam: See Below Exam Limited By: No Limitations General Appearance: Alert, WD/WN, No Apparent Distress Ears: Normal External Exam, Normal TMs Nose: Normal Inspection, Normal Mucousa, Nasal Discharge, Injected Turbinates Mouth/Throat: Normal Inspection, Normal Oropharynx Head: Normocephalic Neck: Normal Inspection, Supple, Non-Tender Respiratory/Chest: No Respiratory Distress, Rhonchi Cardiovascular: Regular Rate, Rhythm GI/Abdominal: Normal Bowel Sounds, Soft, Non-Tender Course - Vital Signs Last Recorded V/S: Last Vital Signs Temp 97.1 F 08/09/19 12:46 Pulse 87 08/09/19 12:46 Resp 16 08/09/19 12:46 BP 125/70 08/09/19 12:46 Pulse Ox 95 08/09/19 12:46 - Orders/Labs/Meds Meds: Medications Discontinued Medications Generic Name Dose Route Start Last Admin Trade Name Sahara PRN Reason Stop Dose Admin Azithromycin 2 packet 08/09/19 13:07 Take Home: Azithromycin 250 Mg, 2 Tab Pack PO 08/09/19 13:08 ONETIME ONE Departure - Departure Time of Disposition: 13:09 Disposition: Home, Self-Care 01 Condition: Fair Clinical Impression: COPD (chronic obstructive pulmonary disease), URI (upper respiratory infection) - Discharge Information *PRESCRIPTION DRUG MONITORING PROGRAM REVIEWED*: No *COPY OF PRESCRIPTION DRUG MONITORING REPORT IN PATIENT ADAN: No Referrals: Yaa Jack MD [Primary Care Provider] - Forms: ED Department Discharge Additional Instructions: 1. Rest 2. Push fluids 3. Tylenol for discomfort 4. Zithromax- 2 tabs today, one tab daily thereafter for 4 days 5. Inhalers as directed 6. Follow up with primary care provider for ongoing concerns. Sepsis Event Note - Evaluation Sepsis Screening Result: No Definite Risk - Focused Exam Vital Signs: Vital Signs Temp Pulse Resp BP Pulse Ox 08/09/19 12:46 97.1 F 87 16 125/70 95 Date Exam was Performed: 08/09/19 Time Exam was Performed: 13:13
[2019-08-09] MEDS: Take Home: Azithromycin 250 MG, 2 Tab Pack PO ONE (13:19)
== END 2019-08-09 13:25 | disposition home or self-care (01) ==
LOC: VM.ED 11:34
DX: J43.1 Panlobular emphysema (principal); J06.9 Acute upper respiratory infection, unspecified; E78.00 Pure hypercholesterolemia, unspecified; I10 Essential (primary) hypertension; K21.9 Gastro-esophageal reflux disease without esophagitis; M81.0 Age-related osteoporosis without current pathological fracture; F17.210 Nicotine dependence, cigarettes, uncomplicated; Z79.899 Other long term (current) drug therapy; Z79.51 Long term (current) use of inhaled steroids
CPT/HCPCS: 99284; 99284-GF; A9270-GY

== ENCOUNTER 2019-09-21 15:55 | Observation (INO) | payer MEDICARE, OTHER ==
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
[2019-09-21] MEDS ORDERED: LORazepam 0.5 MG Tab PO ONE (16:43)
[2019-09-21 17:14] LABS: ANION GAP 10.6 mmol/L (10-20); CHLORIDE,CL 99 mmol/L (98-107); SODIUM,NA 137 mmol/L (136-145)
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
[2019-09-21] MEDS ORDERED: Acetaminophen 325 MG Tab PO PRN (17:44)
[2019-09-21] MEDS ORDERED: Docusate Sodium 100 MG Cap PO PRN (17:44)
[2019-09-21] MEDS ORDERED: Naproxen 500 MG Tab PO PRN (17:44)
[2019-09-21] MEDS ORDERED: Sodium Chloride 0.9% 10 ML Syringe FLUSH PRN (17:44)
[2019-09-21] MEDS ORDERED: Cyclobenzaprine 10 MG Tab PO PRN (17:44)
[2019-09-21] MEDS ORDERED: CALCIUM CARBONATE MC SCH (17:44)
[2019-09-21] MEDS ORDERED: Azithromycin 250 MG Tab PO ONE (17:44)
[2019-09-21] MEDS ORDERED: ESTRADIOL VAG PRN (17:44)
[2019-09-21] MEDS: Albuterol/Ipratropium 3.0-0.5 MG/3 ML Neb Soln NEB PRN (18:40)
[2019-09-21] MEDS: cefTRIAXone 1 GM Vial IVPUSH SCH (18:40)
[2019-09-21] MEDS: Acetaminophen/HYDROcodone 325-10 MG Tab PO SCH (19:47)
[2019-09-21] MEDS: atorvaSTATin 10 MG Tab PO SCH (19:48)
[2019-09-21] MEDS: Carvedilol 6.25 MG Tab PO SCH (19:48)
[2019-09-21] MEDS: Calcium Carbonate/Vitamin D3 1250 MG-200 Unit Tab PO SCH (19:48)
[2019-09-21] MEDS: Enoxaparin 30 MG/0.3 ML Syringe SUBCUT SCH (19:53)
[2019-09-22] MEDS ORDERED: Alendronate 70 MG Tab PO SCH (06:30)
[2019-09-22 07:07] LABS: ANION GAP 7.2 mmol/L (10-20)
[2019-09-22] MEDS: Cholecalciferol (Vitamin D3) 25 MCG Tab PO SCH (07:32)
[2019-09-22] MEDS: Acetaminophen/HYDROcodone 325-10 MG Tab PO SCH ×3 (07:33→19:22)
[2019-09-22] MEDS: Carvedilol 6.25 MG Tab PO SCH ×2 (07:35→19:21)
[2019-09-22] MEDS: Furosemide 20 MG Tab PO SCH (07:35)
[2019-09-22] MEDS: Calcium Carbonate/Vitamin D3 1250 MG-200 Unit Tab PO SCH ×2 (07:35→19:22)
[2019-09-22] MEDS: Enoxaparin 30 MG/0.3 ML Syringe SUBCUT SCH (07:36)
[2019-09-22] MEDS: Calcitonin (Salmon) Nasal Spray 3.7 ML Bottle NAS SCH (07:37)
[2019-09-22] MEDS: Polyethylene Glycol 3350 Powder 17 GM Packet PO SCH (07:39)
[2019-09-22] MEDS: Pantoprazole 40 MG Tab.CR PO SCH (08:12)
[2019-09-22] MEDS ORDERED: Budesonide 0.5 MG/2 ML Neb Susp NEB STA (11:25)
[2019-09-22] MEDS: predniSONE 20 MG Tab PO SCH (14:08)
--- NOTE | 2019-09-22 14:08 | PCM.PN ---
- General Info Date of Service: 09/22/19 Admission Dx/Problem (Free Text): MILD COPD exacerbation pneumonia hypoxia Subjective Update: Patient relates that she slept well during the night. She is at baseline shortness of breath. Good appetite. She does complain of being somewhat foggy in the head. No visual disturbances. Functional Status: Reports: Pain Controlled - Review of Systems General: Reports: No Symptoms HEENT: Reports: No Symptoms Pulmonary: Reports: Shortness of Breath (Which is at baseline for her chronic COPD), Cough (NO more than her normal cough on a daily basis with her COPD.). Denies: Pleuritic Chest Pain, Sputum, Hemoptysis, Wheezing Cardiovascular: Reports: No Symptoms Gastrointestinal: Reports: No Symptoms Genitourinary: Reports: No Symptoms Musculoskeletal: Reports: No Symptoms Skin: Reports: No Symptoms Neurological: Reports: Other (Really has no complaints other than a which she relates as a foggy sensation to her head.). Denies: Confusion, Dizziness, Headache, Numbness, Paresthesia, Syncope, Tingling, Tremors, Trouble Speaking, Weakness, Change in Speech Psychiatric: Reports: No Symptoms - Patient Data Vitals - Most Recent: Last Vital Signs Temp 36.3 C 09/22/19 10:50 Pulse 87 09/22/19 10:50 Resp 18 09/22/19 10:50 BP 144/66 H 09/22/19 10:50 Pulse Ox 94 L 09/22/19 10:50 Weight - Most Recent: 55.656 kg I&O - Last 24 Hours: Intake & Output 09/21/19 09/22/19 09/22/19 22:59 06:59 14:59 Intake Total 240 720 Output Total 200 200 250 Balance 40 -200 470 Lab Results Last 24 Hours: Laboratory Results - last 24 hr 09/21/19 09/21/19 09/21/19 Range/Units 16:46 16:46 16:56 WBC 6.9 (4.0-10.0) x10^3/uL RBC 3.59 L (4.00-5.50) x10^6/uL Hgb 11.9 L (12.0-16.0) g/dL Hct 34.9 (33.0-47.0) % MCV 97.2 H (78.0-93.0) fL MCH 33.1 H (26.0-32.0) pg MCHC 34.1 (32.0-36.0) g/dL RDW Coeff of [place] 13.9 (10.0-15.0) % Plt Count 226 (130-400) x10^3/uL Neut % (Auto) 72.1 (50.0-80.0) % Lymph % (Auto) 15.7 L (25.0-50.0) % [place] % (Auto) 11.2 H (2.0-11.0) % Eos % (Auto) 0.9 (0.0-4.0) % Baso % (Auto) 0.1 L (0.2-1.2) % POC ABG pH 7.409 (7.35-7.45) POC ABG pCO2 48 H (35-45) mmHG POC ABG pO2 59 L* (80-105) mmHG POC ABG HCO3 30 H (22-26) mmol/L POC ABG Total CO2 32 H (23-27) mmol/L POC ABG O2 Sat 90 L (95-98) % POC ABG Base Excess 6 H (-2-3) mmol/L POC FiO2 2.00 Sodium 137 (136-145) mmol/L Potassium 4.6 (3.5-5.1) mmol/L Chloride 99 (98-107) mmol/L Carbon Dioxide 32 (21-32) mmol/L Anion Gap 10.6 (10-20) mmol/L BUN 22 H (7-18) mg/dL Creatinine 1.4 H (0.55-1.02) mg/dL Est Cr Clr Drug Dosing TNP Estimated GFR (MDRD) 36 Glucose 123 H (74-106) mg/dL Calcium 8.2 L (8.5-10.1) mg/dL Corrected Calcium (8.5-10.1) mg/dL Total Bilirubin (0.2-1.0) mg/dL AST (15-37) U/L ALT (14-59) U/L Alkaline Phosphatase (46-116) U/L C-Reactive Protein < 0.2 (<=0.9) mg/dL Total Protein (6.4-8.2) g/dL Albumin (3.4-5.0) g/dL Globulin Albumin/Globulin Ratio 09/22/19 09/22/19 Range/Units 06:14 06:14 WBC 4.9 (4.0-10.0) x10^3/uL RBC 3.26 L (4.00-5.50) x10^6/uL Hgb 10.6 L (12.0-16.0) g/dL Hct 32.4 L (33.0-47.0) % MCV 99.4 H (78.0-93.0) fL MCH 32.5 H (26.0-32.0) pg MCHC 32.7 (32.0-36.0) g/dL RDW Coeff of [place] 13.8 (10.0-15.0) % Plt Count 174 (130-400) x10^3/uL Neut % (Auto) 61.3 (50.0-80.0) % Lymph % (Auto) 22.4 L (25.0-50.0) % [place] % (Auto) 14.5 H (2.0-11.0) % Eos % (Auto) 1.4 (0.0-4.0) % Baso % (Auto) 0.4 (0.2-1.2) % POC ABG pH (7.35-7.45) POC ABG pCO2 (35-45) mmHG POC ABG pO2 (80-105) mmHG POC ABG HCO3 (22-26) mmol/L POC ABG Total CO2 (23-27) mmol/L POC ABG O2 Sat (95-98) % POC ABG Base Excess (-2-3) mmol/L POC FiO2 Sodium 138 (136-145) mmol/L Potassium 4.2 (3.5-5.1) mmol/L Chloride 103 (98-107) mmol/L Carbon Dioxide 32 (21-32) mmol/L Anion Gap 7.2 L (10-20) mmol/L BUN 20 H (7-18) mg/dL Creatinine 1.0 (0.55-1.02) mg/dL Est Cr Clr Drug Dosing 35.47 Estimated GFR (MDRD) 53 Glucose 83 (74-106) mg/dL Calcium 8.4 L (8.5-10.1) mg/dL Corrected Calcium 9.20 (8.5-10.1) mg/dL Total Bilirubin 0.6 (0.2-1.0) mg/dL AST 15 (15-37) U/L ALT 18 (14-59) U/L Alkaline Phosphatase 43 L (46-116) U/L C-Reactive Protein 0.3 (<=0.9) mg/dL Total Protein 6.3 L (6.4-8.2) g/dL Albumin 3.0 L (3.4-5.0) g/dL Globulin 3.3 Albumin/Globulin Ratio 0.91 Med Orders - Current: Current Medications Acetaminophen (Tylenol) 650 mg PO Q4H PRN PRN Reason: Pain (Mild 1-3)/fever Hydrocodone Bitart/Acetaminophen ([place] 325-10 Mg) 1 tab PO TID [facility] Last Admin: 09/22/19 12:00 Dose: 1 tab Albuterol/Ipratropium (Duoneb 3.0-0.5 Mg/3 Ml) 3 ml NEB Q4HRRT PRN PRN Reason: Wheezing Last Admin: 09/21/19 18:40 Dose: 3 ml Alendronate Sodium (Fosamax) 70 mg PO Mo@0630 [facility] Last Admin: 09/22/19 06:43 Dose: 70 mg Atorvastatin Calcium (Lipitor) 10 mg PO BEDTIME [facility] Last Admin: 09/21/19 19:48 Dose: 10 mg Azithromycin (Zithromax) 250 mg PO ONETIME ONE Stop: 09/22/19 16:01 Budesonide (Pulmicort) 0.5 mg NEB BIDRT [facility] Calcitonin [place] (Miacalcin Nasal [place]) 0 ml [place]AN[place] DAILY [facility] Last Admin: 09/22/19 07:37 Dose: 1 spray Calcium Carbonate (Calcium Carbonate/Vitamin D 1250 Mg-200 Unit) 1 tab PO BID [facility] Last Admin: 09/22/19 07:35 Dose: 1 tab Carvedilol (Coreg) 6.25 mg PO BID [facility] Last Admin: 09/22/19 07:35 Dose: 6.25 mg Ceftriaxone Sodium (Rocephin) 1 gm IVPUSH Q24H [facility] Last Admin: 09/21/19 18:40 Dose: 1 gm Cholecalciferol (Vitamin D3) 100 mcg PO DAILY [facility] Last Admin: 09/22/19 07:32 Dose: 100 mcg Cyclobenzaprine HCl (Flexeril) 10 mg PO TID PRN PRN Reason: Pain Docusate Sodium (Colace) 100 mg PO BID PRN PRN Reason: Constipation Enoxaparin Sodium (Lovenox) 30 mg SUBCUT DAILY [facility] Last Admin: 09/22/19 07:36 Dose: 30 mg Furosemide (Lasix) 20 mg PO DAILY [facility] Last Admin: 09/22/19 07:35 Dose: 20 mg Lorazepam (Ativan) 0.5 mg PO TID PRN PRN Reason: Anxiety Naproxen (Naproxen Sodium) 229 mg PO BID PRN PRN Reason: Pain Non-Formulary Medication (Calcium Carbonate [Calcium Carbonate]) 1 gm MC Q48H [facility] Non-Formulary Medication (Estradiol [Estrace 0.01% Vaginal Crm]) 0.5 applic VAG BEDTIME PRN PRN Reason: Other Pantoprazole Sodium (Protonix) 40 mg PO DAILY [facility] Last Admin: 09/22/19 08:12 Dose: 40 mg Polyethylene Glycol (Miralax) 34 gm PO DAILY [facility] Last Admin: 09/22/19 07:39 Dose: Not Given Prednisone (Prednisone) 40 mg PO DAILY [facility] Sodium Chloride (Saline Flush) 10 ml FLUSH ASDIRECTED PRN PRN Reason: Keep Vein Open Discontinued Medications Acetaminophen (Tylenol) 650 mg PO Q6H PRN PRN Reason: Pain Azithromycin (Zithromax) 500 mg PO ONETIME ONE Stop: 09/21/19 17:45 Last Admin: 09/21/19 18:40 Dose: 500 mg Budesonide (Pulmicort) 0.5 mg NEB NOW STA Stop: 09/22/19 11:26 Last Admin: 09/22/19 12:26 Dose: 0.5 mg Lorazepam (Ativan) 0.5 mg PO ONETIME ONE Stop: 09/21/19 16:44 Last Admin: 09/21/19 16:54 Dose: 0.5 mg Naproxen (Naprosyn) 250 mg PO BID PRN PRN Reason: Pain Non-Formulary Medication (Ipratropium/Albuterol Sulfate [Combivent Respimat 20- 100 Mcg]) 1 puff IH Q4H [facility] Last Admin: 09/21/19 20:26 Dose: Not Given - Exam Quality Assessment: Supplemental Oxygen General: Alert, Oriented HEENT: Pupils Equal, Pupils Reactive Neck: Supple Lungs: Normal Respiratory Effort, Decreased Breath Sounds (Throughout with late expiratory wheezing), Wheezing (late expiratory) Cardiovascular: Regular Rate, Regular Rhythm GI/Abdominal Exam: Normal Bowel Sounds, Soft, Non-Tender (Female) Exam: Deferred Back Exam: Normal Inspection Extremities: Normal Inspection, Normal Range of Motion, Non-Tender, Normal Capillary Refill, Pedal Edema (scant pre-tibial bilaterally) Skin: Warm, Dry, Intact Neurological: No New Focal Deficit Psy/Mental Status: Alert, Normal Affect Sepsis Event Note - Evaluation Sepsis Screening Result: No Definite Risk - Focused Exam Vital Signs: Vital Signs Temp Pulse Pulse Resp BP BP Pulse Ox 09/22/19 10:50 36.3 C 87 18 144/66 H 94 L 09/22/19 08:00 09/22/19 07:40 36.4 C 92 18 116/62 94 L 09/22/19 07:35 92 116/62 09/22/19 04:46 36.6 C 92 18 98/68 94 L 09/22/19 02:00 36.3 C 82 18 90/65 96 Pulse Ox 09/22/19 10:50 09/22/19 08:00 94 L 09/22/19 07:40 09/22/19 07:35 09/22/19 04:46 09/22/19 02:00 Date Exam was Performed: 09/22/19 Time Exam was Performed: 13:59 - Problem List Review Problem List Initiated/Reviewed/Updated: Yes - My Orders Last 24 Hours: My Active Orders 09/22/19 11:24 RT Aerosol Therapy [RC] ASDIRECTED 09/22/19 11:25 RT Aerosol Therapy [RC] ASDIRECTED 09/22/19 13:45 predniSONE 40 mg PO DAILY 09/22/19 20:00 Budesonide [Pulmicort] 0.5 mg NEB BIDRT - Assessment Assessment:: #1: Mild COPD exacerbation. Will continue with the Azithromycin and Ceftriaxone. Will also start oral steroids and Budesonide (as of note she is on only DUO-[place]) PRN at home. She should really be on a controller of some sort will consider on discharge. #2 RUL pneumonia-Continue the Azithro and ceftriaxone #3 Hypoxia wean down oxygen. #4 Concern for cognitive ability. Was evaluated by OT and okay to discharge home. It sounds like this patient is a regular who should probably be in some sort of assisted living although she denies doing so. At this time Social work is working on placement at home and OT okay with discharge home will do so tomorrow with home health.
[2019-09-22] MEDS ORDERED: Azithromycin 250 MG Tab PO ONE (16:00)
[2019-09-22] MEDS: cefTRIAXone 1 GM Vial IVPUSH SCH (17:58)
[2019-09-22] MEDS: atorvaSTATin 10 MG Tab PO SCH (19:21)
[2019-09-22] MEDS: Budesonide 0.5 MG/2 ML Neb Susp NEB SCH (19:24)
[2019-09-22] MEDS: Acetaminophen 325 MG Tab PO PRN (22:02)
[2019-09-23] MEDS: Acetaminophen 325 MG Tab PO PRN (03:33)
[2019-09-23] MEDS: LORazepam 0.5 MG Tab PO PRN ×2 (03:33→07:41)
[2019-09-23 07:02] VITALS: PULSE 104
[2019-09-23] MEDS: Albuterol/Ipratropium 3.0-0.5 MG/3 ML Neb Soln NEB PRN (07:12)
[2019-09-23] MEDS: Budesonide 0.5 MG/2 ML Neb Susp NEB SCH (07:12)
[2019-09-23] MEDS: Pantoprazole 40 MG Tab.CR PO SCH (07:32)
[2019-09-23] MEDS: Calcium Carbonate/Vitamin D3 1250 MG-200 Unit Tab PO SCH (07:32)
[2019-09-23] MEDS: Enoxaparin 30 MG/0.3 ML Syringe SUBCUT SCH (07:32)
[2019-09-23] MEDS: Cholecalciferol (Vitamin D3) 25 MCG Tab PO SCH (07:32)
[2019-09-23] MEDS: Furosemide 20 MG Tab PO SCH (07:32)
[2019-09-23] MEDS: predniSONE 20 MG Tab PO SCH (07:32)
[2019-09-23] MEDS: Acetaminophen/HYDROcodone 325-10 MG Tab PO SCH (07:33)
[2019-09-23] MEDS: Calcitonin (Salmon) Nasal Spray 3.7 ML Bottle NAS SCH (07:33)
[2019-09-23] MEDS: Carvedilol 6.25 MG Tab PO SCH (07:34)
[2019-09-23] MEDS: Polyethylene Glycol 3350 Powder 17 GM Packet PO SCH (07:34)
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
[2019-09-23 09:38] VITALS: BP 127/76
== END 2019-09-23 11:00 | disposition home or self-care (01) ==
LOC: VM.ED 15:55 → VM.MS 17:10
PROVIDERS: ADMIT Physician Assistant Medical; ATTEND Physician Assistant Medical
DX: J18.9 Pneumonia, unspecified organism (principal); J43.1 Panlobular emphysema; R09.02 Hypoxemia; E78.00 Pure hypercholesterolemia, unspecified; I10 Essential (primary) hypertension; K21.9 Gastro-esophageal reflux disease without esophagitis; F17.210 Nicotine dependence, cigarettes, uncomplicated; Z79.899 Other long term (current) drug therapy; Z79.51 Long term (current) use of inhaled steroids
CPT/HCPCS: 36415; 36600; 71046; 80048; 80053; 82803; 85025; 86140; 94640; 94760; 96372; 96374; 97129; 97130; 99284; 99285; A9270; J0696; J1650; J7620-GY

== ENCOUNTER 2019-09-25 12:46 | Emergency (ER) | payer MEDICARE, OTHER ==
[2019-09-25] MEDS: Albuterol/Ipratropium 3.0-0.5 MG/3 ML Neb Soln NEB ONE (12:55)
[2019-09-25] MEDS ORDERED: Sodium Chloride 0.9% 10 ML Syringe FLUSH PRN ×2 (12:59→14:14)
[2019-09-25] MEDS: Budesonide 0.5 MG/2 ML Neb Susp NEB ONE (13:35)
--- NOTE | 2019-09-25 13:50 | CR ---
[id number] RAD/RAD Chest PA or AP 1V EXAM: RAD Chest PA or AP 1V INDICATION: HYPOXIA. COMPARISON: September 21, 2019. DISCUSSION: Enlargement of the cardiomediastinal silhouette is again seen. Overall, no significant change from prior examination. Again seen is parenchymal opacification centered on the right hilar region. Appearance is nonspecific. Differential diagnosis includes underlying neoplasm, pneumonia, or atelectasis. Blunting of the costophrenic sulci suggest possible small effusions as well. IMPRESSION: Abnormal appearance of the right lung, described above. Findings are similar to the prior examination. In the clinical setting of hypoxia, contrast-enhanced CT examination is recommended. Santi Ness MD 09/25/19 [id number] Thank you for allowing us to participate in the care of your patient.
[2019-09-25 13:54] LABS: ANION GAP 12.5 mmol/L (10-20); CHLORIDE,CL 96 mmol/L (98-107); SODIUM,NA 134 mmol/L (136-145)
--- NOTE | 2019-09-25 13:54 | EDM.PDOC ---
ED HPI GENERAL MEDICAL PROBLEM - General Stated Complaint: SOB Time Seen by Provider: 09/25/19 12:50 Source of Information: Reports: Patient History Limitations: Reports: No Limitations - History of Present Illness INITIAL COMMENTS - FREE TEXT/NARRATIVE: Patient comes emergency department today from the local assisted living center with complaints of shortness of breath. This patient was discharged from the hospital during the week last week following a COPD exacerbation and some smoke exposure. She was sent home started on budesonide for chronic COPD prednisone as well as doxycycline twice a day. She relates that she has been using her nebulizers today as prescribed. She became increased shortness of breath. It was noted that her oxygen saturation was 85%. She denies any pain in her chest. No palpitations. No weakness dizziness lightheadedness. No diaphoresis. No nausea or vomiting. Chest and Right Side of Abdomen Pain Score (Numeric/FACES): 3 - Related Data Allergies Allergy/AdvReac Type Severity Reaction Status Date / Time No Known Allergies Allergy Verified 09/25/19 16:24 Home Meds: Home Meds Cyclobenzaprine [Flexeril] 10 mg PO TID PRN 07/14/14 [History] Hydrocodone/Acetaminophen [Hydrocodon-Acetaminophn 10-325] 1 tab PO TID [History] Pantoprazole [ProTONIX] 40 mg PO DAILY 07/14/14 [History] Acetaminophen [Tylenol] 650 mg PO Q6H PRN 06/15/18 [History] Alendronate [Fosamax] 70 mg PO ASDIRECTED 06/15/18 [History] Calcitonin ([place]) [Miacalcin Nasal [place]] 1 spray NS DAILY 06/15/18 [History] Cholecalciferol (Vitamin D3) [D3-2000] 4,000 unit PO DAILY 06/15/18 [History] Docusate Sodium [Colace] 100 mg PO BID PRN 06/15/18 [History] Ipratropium/Albuterol Sulfate [Combivent Respimat 20-100 Mcg] 1 puff PO QID [History] Naproxen Sodium [Aleve] 220 mg PO BID PRN 06/15/18 [History] atorvaSTATin [Lipitor] 10 mg PO BEDTIME 06/15/18 [History] estradioL [Estrace 0.01% Vaginal Crm] 0.5 applicful VAG BEDTIME PRN 06/15/18 [ History] polyethylene glycoL 3350 [MiraLAX] 34 gm PO DAILY 06/15/18 [History] Furosemide [Lasix] 20 mg PO DAILY 07/13/19 [History] LORazepam [Ativan] 0.5 mg PO TID PRN 09/21/19 [History] Calcium Carbonate/Vitamin D3 [Calcium Carbonate/Vitamin D 600 MG-200 Unit] 1 tab PO BID 09/22/19 [History] Mag Hydrox/Al Hydrox/Simeth [Maalox Maximum Strength Susp] 2 capful PO Q48H [History] carvediloL [Carvedilol] 6.25 mg PO BIDMEALS 09/22/19 [History] Acetaminophen [Tylenol] 650 mg PO Q4H PRN tablet 09/23/19 [Rx] Albuterol/Ipratropium [DuoNeb 3.0-0.5 MG/3 ML] 3 ml NEB Q4HRRT PRN neb [Rx] Budesonide [Pulmicort] 0.5 mg NEB BIDRT #60 neb 09/23/19 [Rx] Calcium Carbonate [Calcium Carbonate] 1 gm MC Q48H 09/23/19 [Rx] Calcium Carbonate/Vitamin D3 [Calcium Carbonate/Vitamin D 1250 MG-200 Unit] 1 tab PO BID tablet 09/23/19 [Rx] Doxycycline [Vibramycin] 100 mg PO BID #10 cap 09/23/19 [Rx] carvediloL [Coreg] 6.25 mg PO BID tablet 09/23/19 [Rx] predniSONE 40 mg PO DAILY #8 tablet 09/23/19 [Rx] Past Medical History HEENT History: Reports: Cataract Cardiovascular History: Reports: High Cholesterol, Hypertension, Other (See Below) Other Cardiovascular History: mitral valve disorder. Abdominal aortic aneurysm without rupture. peripheral edema Respiratory History: Reports: Other (See Below) Other Respiratory History: panlobular emphysema. dyspnea on exertion Gastrointestinal History: Reports: GERD, Other (See Below) Other Gastrointestinal History: mass of right inguinal region Genitourinary History: Reports: Other (See Below) Other Genitourinary History: chronic urethritis [employer] History: Reports: Other (See Below) Other [employer] History: atrophic vaginitis. vaginal itching Musculoskeletal History: Reports: Back Pain, Chronic, Osteoporosis Other Musculoskeletal History: scoliosis deformity of spine. closed fx of rib. closed fx of left shoulder. lumbar facet arthropathy Endocrine/Metabolic History: Reports: Osteoporosis, Vitamin D Deficiency, Other (See Below) Other Endocrine/Metabolic History: abnormal thyroid blood test Dermatologic History: Reports: Other (See Below) Other Dermatologic History: atopic dermatitis. ulcer of elbow - Infectious Disease History Infectious Disease History: Reports: Chicken Pox, Measles, Mumps, Rubella - Past Surgical History HEENT Surgical History: Reports: Tonsillectomy Female Surgical History: Reports: Cystoscopy, Tubal Ligation Musculoskeletal Surgical History: Reports: Other (See Below) Other Musculoskeletal Surgeries/Procedures:: lumbar radiculopathy. degeneration of lumbar or lumbosacral intervertebral disc Social & Family History - Family History Family Medical History: Noncontributory - Caffeine Use Caffeine Use: Reports: Coffee, Soda Caffeine Use Comment: coffee daily and occasional soda ED ROS GENERAL - Review of Systems Review Of Systems: Comprehensive ROS is negative, except as noted in HPI. ED EXAM, GENERAL - Physical Exam Exam: See Below Free Text/Narrative:: She has tachypneic and notably mild respiratory distress able to speak in about 4-5 word sentences. Exam Limited By: No Limitations General Appearance: Alert, WD/WN, Mild Distress Eye Exam: Bilateral Eye: EOMI Ears: Normal External Exam Nose: Normal Inspection Throat/Mouth: Normal Inspection, Normal Lips, Normal Oropharynx Head: Atraumatic, Normocephalic Neck: Normal Inspection, Supple, Non-Tender Respiratory/Chest: Chest Non-Tender, Respiratory Distress (Respiratory distress) , Decreased Breath Sounds (throughout. ), Crackles (fine inspiratory opening crackles to both bilateral lower lobes. ), Rales, Wheezing (Mild inspiratory and expiratory wheezing bilaterally. ). No: Rhonchi, Stridor Cardiovascular: Normal Peripheral Pulses, Regular Rate, Rhythm, Tachycardia GI/Abdominal: Normal Bowel Sounds, Soft (Female) Exam: Deferred Rectal (Female) Exam: Deferred Back Exam: Normal Inspection, Full Range of Motion Extremities: Normal Inspection, Normal Range of Motion, Non-Tender, No Pedal Edema, Normal Capillary Refill Neurological: Alert, Oriented, Normal Cognition, Normal Gait, No Motor/Sensory Deficits Psychiatric: Normal Affect, Normal Mood Skin Exam: Warm, Dry, Intact, Normal Color Course - Vital Signs Last Recorded V/S: Last Vital Signs Temp 35.9 C L 09/25/19 12:47 Pulse 98 09/25/19 14:39 Resp 25 H 09/25/19 14:39 BP 158/88 H 09/25/19 14:39 Pulse Ox 92 L 09/25/19 14:39 - Orders/Labs/Meds Orders: Active Orders 24 hr Category Date Time Status EKG Documentation Completion [RC] STAT Care 09/25/19 12:59 Active Rosas Catheter Insertion [Insert Urinary Catheter] [OM. Care 09/25/19 15:45 Ordered PC] Q24H Peripheral IV Insertion Adult [OM.PC] Stat Oth 09/25/19 12:59 Ordered Peripheral IV Insertion Adult [OM.PC] Stat Oth 09/25/19 14:14 Ordered Labs: Laboratory Tests 09/25/19 09/25/19 09/25/19 Range/Units 13:10 13:10 13:10 WBC 8.4 (4.0-10.0) x10^3/uL RBC 3.54 L (4.00-5.50) x10^6/uL Hgb 11.5 L (12.0-16.0) g/dL Hct 34.5 (33.0-47.0) % MCV 97.5 H (78.0-93.0) fL MCH 32.5 H (26.0-32.0) pg MCHC 33.3 (32.0-36.0) g/dL RDW Coeff of [place] 14.0 (10.0-15.0) % Plt Count 239 (130-400) x10^3/uL Neut % (Auto) 90.3 H (50.0-80.0) % Lymph % (Auto) 5.5 L (25.0-50.0) % [place] % (Auto) 4.2 (2.0-11.0) % Eos % (Auto) 0.0 (0.0-4.0) % Baso % (Auto) 0.0 L (0.2-1.2) % POC VBG pH (7.31-7.41) POC VBG pCO2 (41-51) POC VBG pO2 POC VBG HCO3 (23-28) POC VBG Total CO2 (24-29) POC VBG Base Excess ((-2) - 3) POC FiO2 Sodium 134 L (136-145) mmol/L Potassium 4.5 (3.5-5.1) mmol/L Chloride 96 L (98-107) mmol/L Carbon Dioxide 30 (21-32) mmol/L Anion Gap 12.5 (10-20) mmol/L BUN 35 H (7-18) mg/dL Creatinine 1.1 H (0.55-1.02) mg/dL Est Cr Clr Drug Dosing TNP Estimated GFR (MDRD) 48 Glucose 173 H (74-106) mg/dL Lactic Acid 1.1 (0.4-2.0) mmol/L Calcium 8.4 L (8.5-10.1) mg/dL Magnesium (1.8-2.4) mg/dL Troponin I 0.101 H* (<=0.056) ng/mL C-Reactive Protein < 0.2 (<=0.9) mg/dL NT-Pro-B Natriuret Pep (<=450) pg/mL 09/25/19 09/25/19 09/25/19 Range/Units 13:10 13:10 13:59 WBC (4.0-10.0) x10^3/uL RBC (4.00-5.50) x10^6/uL Hgb (12.0-16.0) g/dL Hct (33.0-47.0) % MCV (78.0-93.0) fL MCH (26.0-32.0) pg MCHC (32.0-36.0) g/dL RDW Coeff of [place] (10.0-15.0) % Plt Count (130-400) x10^3/uL Neut % (Auto) (50.0-80.0) % Lymph % (Auto) (25.0-50.0) % [place] % (Auto) (2.0-11.0) % Eos % (Auto) (0.0-4.0) % Baso % (Auto) (0.2-1.2) % POC VBG pH 7.37 (7.31-7.41) POC VBG pCO2 45 (41-51) POC VBG pO2 84 POC VBG HCO3 26 (23-28) POC VBG Total CO2 27 (24-29) POC VBG Base Excess 1 ((-2) - 3) POC FiO2 0.21 Sodium (136-145) mmol/L Potassium (3.5-5.1) mmol/L Chloride (98-107) mmol/L Carbon Dioxide (21-32) mmol/L Anion Gap (10-20) mmol/L BUN (7-18) mg/dL Creatinine (0.55-1.02) mg/dL Est Cr Clr Drug Dosing Estimated GFR (MDRD) Glucose (74-106) mg/dL Lactic Acid (0.4-2.0) mmol/L Calcium (8.5-10.1) mg/dL Magnesium 2.0 (1.8-2.4) mg/dL Troponin I (<=0.056) ng/mL C-Reactive Protein (<=0.9) mg/dL NT-Pro-B Natriuret Pep 16664 H (<=450) pg/mL Meds: Medications Discontinued Medications Generic Name Dose Route Start Last Admin Trade Name Ivanq PRN Reason Stop Dose Admin Albuterol/Ipratropium 3 ml 09/25/19 12:58 09/25/19 12:55 Duoneb 3.0-0.5 Mg/3 Ml NEB 09/25/19 12:59 3 ml ONETIME ONE Administration Aspirin 324 mg 09/25/19 13:56 09/25/19 14:19 Aspirin PO 09/25/19 13:57 324 mg ONETIME ONE Administration Azithromycin 500 mg 09/25/19 14:46 09/25/19 14:54 Zithromax PO 09/25/19 14:47 500 mg ONETIME ONE Administration Budesonide 0.5 mg 09/25/19 12:58 09/25/19 13:35 Pulmicort NEB 09/25/19 12:59 0.5 mg ONETIME ONE Administration Ceftriaxone Sodium 1 gm 09/25/19 14:46 09/25/19 14:53 Rocephin IVPUSH 09/25/19 14:47 1 gm STAT ONE Administration Furosemide 80 mg 09/25/19 14:54 09/25/19 15:10 Lasix IV 09/25/19 14:55 80 mg ONETIME ONE Administration Magnesium Sulfate 2 gm/ Premix 50 mls @ 25 mls/hr 09/25/19 14:16 09/25/19 15: 24 IV 09/25/19 16:15 25 mls/hr ONETIME ONE Administration Methylprednisolone Sodium Succinate 125 mg 09/25/19 14:14 09/25/19 14:19 Solu-Medrol IVPUSH 09/25/19 14:15 125 mg ONETIME ONE Administration Sodium Chloride 10 ml 09/25/19 12:59 Saline Flush FLUSH ASDIRECTED PRN Keep Vein Open Sodium Chloride 10 ml 09/25/19 14:14 Saline Flush FLUSH ASDIRECTED PRN Keep Vein Open - Radiology Interpretation Free Text/Narrative:: Abnormal appearance of the right lung [place] opacification centered on the right hilar region appearance is nonspecific pneumonia atelectasis or neoplasm. - Re-Assessments/Exams Free Text/Narrative Re-Assessment/Exam: 09/25/19 13:54 DUo-neb Budesonide neb 09/25/19 15:04 Chest x-ray is similar to when she was in the hospital last week. Have improvement of her shortness of breath following the nebulizers although she continues to be somewhat tachypneic. She is able to speak in full sentences. Although when she gets up to go to the bathroom she becomes extremely winded. Her troponin is mildly elevated at 0.1. Her EKG shows a left bundle branch chronic for her and unchanged from previous. She denies any chest pain at this time. Does have a quite elevated proBNP at approximately 60,000. Was given 80 mg of Lasix. A rosas was placed. I called and spoke with Dr. Hare at [facility] in [place]. HPI ER COURSE findings and concerns were relayed to him. HE accepted the patient in transfer at this time and would like the patient covered with Ceftriaxone and azithro even though she has been on Doxycycline at home already. She will be going to [facility] the [facility] for [facility] because of her SOB. She has no exposure travel risk and no fever. Departure - Departure Time of Disposition: 14:15 Disposition: DC/Tfer to Acute Hospital 02 Reason for Transfer *Q: Other Clinical Impression: NSTEMI (non-ST elevated myocardial infarction), COPD with acute exacerbation Congestive heart failure Qualifiers: Heart failure type: unspecified Heart failure chronicity: acute on chronic Qualified Code(s): I50.9 - Heart failure, unspecified Referrals: Yaa Jack MD [Primary Care Provider] - Forms: Interfacility Transfer [facility] Sepsis Event Note - Focused Exam Vital Signs: Vital Signs Temp Pulse Resp BP Pulse Ox 09/25/19 14:39 98 25 H 158/88 H 92 L 09/25/19 13:30 94 20 123/100 H 94 L 09/25/19 12:47 35.9 C L 92 22 H 132/90 93 L Date Exam was Performed: 09/25/19 Time Exam was Performed: 18:51 - My Orders Last 24 Hours: My Active Orders 09/25/19 12:59 EKG Documentation Completion [RC] STAT Peripheral IV Insertion Adult [OM.PC] Stat 09/25/19 14:14 Peripheral IV Insertion Adult [OM.PC] Stat 09/25/19 15:45 Rosas Catheter Insertion [Insert Urinary Catheter] [OM.PC] Q24H - Assessment/Plan Last 24 Hours: My Active Orders 09/25/19 12:59 EKG Documentation Completion [RC] STAT Peripheral IV Insertion Adult [OM.PC] Stat 09/25/19 14:14 Peripheral IV Insertion Adult [OM.PC] Stat 09/25/19 15:45 Rosas Catheter Insertion [Insert Urinary Catheter] [OM.PC] Q24H Assessment:: CHF acute on chronic COPD exacerbation NSTEMI most likely due to the large amount of fluid overload from the CHF HYpoxia Plan: Transfer to [facility] for further care management and evaluation.
[2019-09-25] MEDS: Aspirin 81 MG Tab.Chew PO ONE (14:19)
[2019-09-25] MEDS: methylPREDNISolone Sodium Succinate 125 MG/2 ML SDV IVPUSH ONE (14:19)
[2019-09-25] MEDS: cefTRIAXone 1 GM Vial IVPUSH ONE (14:53)
[2019-09-25] MEDS: Azithromycin 250 MG Tab PO ONE (14:54)
[2019-09-25] MEDS: Furosemide 40 MG/4 ML VIAL IV ONE (15:10)
[2019-09-25] MEDS: Magnesium Sulfate/Water 2 GM in Premix Bag 1 BAG IV ONE (15:24)
[2019-09-25 17:02] VITALS: BP 158/88; PULSE 98
== END 2019-09-25 15:54 | disposition short-term general hospital (02) ==
LOC: SUPCPDRO 12:46 → VM.ED 12:46
DX: I11.0 Hypertensive heart disease with heart failure (principal); I50.9 Heart failure, unspecified; I21.4 Non-ST elevation (NSTEMI) myocardial infarction; Z79.899 Other long term (current) drug therapy
CPT/HCPCS: 36415; 51702; 71045; 80048; 82803; 83605; 83735; 83880; 84484; 85025; 86140; 93005; 96365; 96375; 99285; A9270; J0696; J1940; J2930; J3475; 99284-GF; J7620-GY

== ENCOUNTER 2019-11-22 06:53 | Inpatient (IN) | payer MEDICARE, OTHER ==
--- NOTE | 2019-11-22 07:18 | EDM.PDOC ---
ED HPI GENERAL MEDICAL PROBLEM - General Chief Complaint: Cardiovascular Problem Time Seen by Provider: 11/22/19 07:02 Source of Information: Reports: Patient, EMS - History of Present Illness INITIAL COMMENTS - FREE TEXT/NARRATIVE: Elizabeth is an 84 y/o female who is brought to the ER by EMS from the [facility] for increased SOB. Patient started to have swelling in her lower legs that started about 2 weeks ago and then the last 3 days she has progressively gotten more short of breath. Last night she had to attempt to sleep sitting in the chair. She does not use her home oxygen. On arrival to her home EMS reported her sats were 89%. She denies a cough or fever. She is having some right sided rib pain, but denies any new trauma. She did have a fall from a roof 10 years ago and had some fractured ribs in the same region. Right Thoracic Pain Score (Numeric/FACES): 10 - Related Data Allergies Allergy/AdvReac Type Severity Reaction Status Date / Time No Known Allergies Allergy Verified 09/25/19 16:24 Home Meds: Home Meds Cyclobenzaprine [Flexeril] 10 mg PO TID PRN 07/14/14 [History] Hydrocodone/Acetaminophen [Hydrocodone-Acetamin 10-325 mg] 1 tab PO TID [History] Pantoprazole [ProTONIX] 40 mg PO DAILY 07/14/14 [History] Acetaminophen [Tylenol] 650 mg PO Q6H PRN 06/15/18 [History] Alendronate [Fosamax] 70 mg PO ASDIRECTED 06/15/18 [History] Calcitonin ([place]) [Miacalcin Nasal [place]] 1 spray NS DAILY 06/15/18 [History] Cholecalciferol (Vitamin D3) [D3-2000] 4,000 unit PO DAILY 06/15/18 [History] Docusate Sodium [Colace] 100 mg PO BID PRN 06/15/18 [History] Ipratropium/Albuterol Sulfate [Combivent Respimat 20-100 Mcg] 1 puff PO QID [History] Naproxen Sodium [Aleve] 220 mg PO BID PRN 06/15/18 [History] atorvaSTATin [Lipitor] 10 mg PO BEDTIME 06/15/18 [History] estradioL [Estrace 0.01% Vaginal Crm] 0.5 applicful VAG BEDTIME PRN 06/15/18 [ History] polyethylene glycoL 3350 [MiraLAX] 34 gm PO DAILY 06/15/18 [History] Furosemide [Lasix] 20 mg PO DAILY 07/13/19 [History] LORazepam [Ativan] 0.5 mg PO TID PRN 09/21/19 [History] Calcium Carbonate/Vitamin D3 [Calcium Carbonate/Vitamin D 600 MG-200 Unit] 1 tab PO BID 09/22/19 [History] Mag Hydrox/Aluminum Hyd/Simeth [Maalox Maximum Strength Susp] 2 capful PO Q48H 09/22/19 [History] carvediloL [Carvedilol] 6.25 mg PO BIDMEALS 09/22/19 [History] Acetaminophen [Tylenol] 650 mg PO Q4H PRN tablet 09/23/19 [Rx] Albuterol/Ipratropium [DuoNeb 3.0-0.5 MG/3 ML] 3 ml NEB Q4HRRT PRN neb [Rx] Budesonide [Pulmicort] 0.5 mg NEB BIDRT #60 neb 09/23/19 [Rx] Calcium Carbonate [Calcium Carbonate] 1 gm MC Q48H 09/23/19 [Rx] Calcium Carbonate/Vitamin D3 [Calcium Carbonate/Vitamin D 1250 MG-200 Unit] 1 tab PO BID tablet 09/23/19 [Rx] Doxycycline [Vibramycin] 100 mg PO BID #10 cap 09/23/19 [Rx] carvediloL [Coreg] 6.25 mg PO BID tablet 09/23/19 [Rx] predniSONE 40 mg PO DAILY #8 tablet 09/23/19 [Rx] Past Medical History HEENT History: Reports: Cataract Cardiovascular History: Reports: High Cholesterol, Hypertension, Other (See Below) Other Cardiovascular History: mitral valve disorder. Abdominal aortic aneurysm without rupture. peripheral edema Respiratory History: Reports: Other (See Below) Other Respiratory History: panlobular emphysema. 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 vaginal itching Musculoskeletal History: Reports: Back Pain, Chronic, Osteoporosis Other Musculoskeletal History: scoliosis deformity of spine. closed fx of rib. closed fx of left shoulder. lumbar facet arthropathy Endocrine/Metabolic History: Reports: Osteoporosis, Vitamin D Deficiency, Other (See Below) Other Endocrine/Metabolic History: abnormal thyroid blood test Dermatologic History: Reports: Other (See Below) Other Dermatologic History: atopic dermatitis. ulcer of elbow - Infectious Disease History Infectious Disease History: Reports: Chicken Pox, Measles, Mumps, Rubella - Past Surgical History HEENT Surgical History: Reports: Tonsillectomy Female Surgical History: Reports: Cystoscopy, Tubal Ligation Musculoskeletal Surgical History: Reports: Other (See Below) Other Musculoskeletal Surgeries/Procedures:: lumbar radiculopathy. degeneration of lumbar or lumbosacral intervertebral disc Social & Family History - Family History Family Medical History: Noncontributory - Caffeine Use Caffeine Use: Reports: Coffee, Soda Caffeine Use Comment: coffee daily and occasional soda Review of Systems - Review of Systems Review Of Systems: See Below Constitutional: Reports: Weakness Eyes: Reports: No Symptoms Ears: Reports: No Symptoms Nose: Reports: No Symptoms Mouth/Throat: Reports: No Symptoms Respiratory: Reports: Shortness of Breath Cardiovascular: Reports: Edema GI/Abdominal: Reports: No Symptoms Genitourinary: Reports: No Symptoms Musculoskeletal: Reports: Other (right sided rib pain) Skin: Reports: No Symptoms Neurological: Reports: No Symptoms Psychiatric: Reports: No Symptoms ED EXAM, GENERAL - Physical Exam Exam: See Below Exam Limited By: No Limitations General Appearance: Alert, WD/WN (Elderly female.) Eye Exam: Bilateral Eye: PERRL Ears: Normal External Exam, Normal Canal, Normal TMs, Other (Left Ear hearing aid present) Nose: Normal Inspection, Normal Mucosa, No Blood Throat/Mouth: Normal Inspection, Normal Lips, Normal Oropharynx, Other (Teeth with widepsread dental work and some decay noted) Head: Atraumatic, Normocephalic Neck: Normal Inspection, Supple, Non-Tender Respiratory/Chest: Decreased Breath Sounds, Crackles, Rales (note SOB with talking) Cardiovascular: Normal Peripheral Pulses, Regular Rate, Rhythm, Gallop/S3 GI/Abdominal: Normal Bowel Sounds, Soft, Non-Tender, No Mass (Female) Exam: Deferred Rectal (Female) Exam: Deferred Back Exam: Vertebral Tenderness (right thoracic to right lower rib region tender with exam) Extremities: Pedal Edema (3+pedal edema to below knees) Neurological: Alert, Oriented, CN II-XII Intact, Normal Cognition Psychiatric: Normal Affect, Normal Mood Skin Exam: Warm, Dry, Intact, Normal Color, No Rash Lymphatic: No Adenopathy EKG INTERPRETATION EKG Date: 11/22/19 Time: 07:56 Rhythm: NSR Rate (Beats/Min): 70 [place]: Normal P-Wave: Present QRS: LBBB ST-T: Normal QT: Normal Comparison: Other: (Previous EKG 09/25/2019 noted A Fib with LBBB) EKG Interpretation Comments: LBBB/Sinus Rhythm Course - Vital Signs Text/Narrative:: The patient was seen by the [facility] DRIVER. Labs, EKG, and Xrays ordered. She had been given Lasix 40mg IVP prior to arrival per EMS. 0800 Patient complaining of right rib pain and gets a pain pill scheduled at the [facility]. Hydrocodone/APAP ordered. 0820 Labs, CXR, and EKG reviewed. Dr Ruth Robb notified of patient ans she will admit her to Acute Inpatient Care for diuresis and serial labs. See H&P and orders per Dr Robb. Last Recorded V/S: Last Vital Signs Temp 36.7 C 11/22/19 08:36 Pulse 66 11/22/19 08:36 Resp 22 H 11/22/19 08:36 BP 116/64 11/22/19 08:36 Pulse Ox 97 11/22/19 08:37 - Orders/Labs/Meds Orders: Active Orders 24 hr Category Date Time Status Admission Status [Patient Status] [ADT] Routine ADT 11/22/19 08:30 Active EKG Documentation Completion [RC] STAT Care 11/22/19 07:19 Active CULTURE BLOOD [BC] Stat Lab 11/22/19 07:35 Received Labs: Laboratory Tests 11/22/19 11/22/19 11/22/19 Range/Units 07:26 07:26 07:35 WBC 6.1 (4.0-10.0) x10^3/uL RBC 3.40 L (4.00-5.50) x10^6/uL Hgb 11.4 L (12.0-16.0) g/dL Hct 33.7 (33.0-47.0) % MCV 99.1 H (78.0-93.0) fL MCH 33.5 H (26.0-32.0) pg MCHC 33.8 (32.0-36.0) g/dL RDW Coeff of [place] 15.7 H (10.0-15.0) % Plt Count 204 (130-400) x10^3/uL Neut % (Auto) 71.4 (50.0-80.0) % Lymph % (Auto) 15.8 L (25.0-50.0) % [place] % (Auto) 11.3 H (2.0-11.0) % Eos % (Auto) 1.3 (0.0-4.0) % Baso % (Auto) 0.2 (0.2-1.2) % PT (9.5-12.3) SEC INR (2.0-3.5) APTT (25.6-32.8) SEC POC ABG pH (7.35-7.45) POC ABG pCO2 (35-45) mmHG POC ABG pO2 (80-105) mmHG POC ABG HCO3 (22-26) mmol/L POC ABG Total CO2 (23-27) mmol/L POC ABG O2 Sat (95-98) % POC ABG Base Excess (-2-3) mmol/L POC FiO2 Sodium (136-145) mmol/L Potassium (3.5-5.1) mmol/L Chloride (98-107) mmol/L Carbon Dioxide (21-32) mmol/L Anion Gap (10-20) mmol/L BUN (7-18) mg/dL Creatinine (0.55-1.02) mg/dL Est Cr Clr Drug Dosing Estimated GFR (MDRD) Glucose (74-106) mg/dL Calcium (8.5-10.1) mg/dL Corrected Calcium (8.5-10.1) mg/dL Magnesium (1.8-2.4) mg/dL Total Bilirubin (0.2-1.0) mg/dL AST (15-37) U/L ALT (14-59) U/L Alkaline Phosphatase (46-116) U/L Troponin I (<=0.056) ng/mL NT-Pro-B Natriuret Pep (<=450) pg/mL Total Protein (6.4-8.2) g/dL Albumin (3.4-5.0) g/dL Globulin Albumin/Globulin Ratio Urine Color Yellow (YELLOW) Urine Appearance Clear (CLEAR) Urine pH 7.5 (5.0-8.0) Ur Specific [place] 1.020 Urine Protein Negative (NEGATIVE) mg/dL Urine Glucose (UA) Negative (NEGATIVE) mg/dL Urine Ketones Negative (NEGATIVE) mg/dL Urine Occult Blood Trace-intact H (NEGATIVE) Urine Nitrite Negative (NEGATIVE) Urine Bilirubin Negative (NEGATIVE) Urine Urobilinogen 0.2 (0.2) EU/dL Ur Leukocyte Esterase Negative (NEGATIVE) Urine RBC 5-10 H (NOT SEEN) /HPF Urine WBC Not seen (NOT SEEN) /HPF Ur Squamous Epith Cells Rare (NEGATIVE) /HPF Urine Bacteria Rare (NEGATIVE) /HPF Urine Mucus Not seen (NEGATIVE) /LPF Urine Opiates Screen Negative (NEGATIVE) Ur Buprenorphine Scrn Negative (NEGATIVE) Ur Oxycodone Screen Negative (NEGATIVE) Ur EDDP (Meth Metab) Negative (NEGATIVE) Urine Methadone Screen Negative (NEGATIVE) Ur Barbituates Screen Negative (NEGATIVE) Ur Tricyclics Screen Negative (NEGATIVE) Ur Phencyclidine Scrn Negative (NEGATIVE) Ur Amphetamines Screen Negative (NEGATIVE) U Methamphetamines Scrn Negative (NEGATIVE) Urine MDMA Screen Negative (NEGATIVE) U Benzodiazepines Scrn Negative (NEGATIVE) Urine Cocaine Screen Negative (NEGATIVE) U Marijuana (THC) Screen Negative (NEGATIVE) 11/22/19 11/22/19 11/22/19 Range/Units 07:35 07:35 07:51 WBC (4.0-10.0) x10^3/uL RBC (4.00-5.50) x10^6/uL Hgb (12.0-16.0) g/dL Hct (33.0-47.0) % MCV (78.0-93.0) fL MCH (26.0-32.0) pg MCHC (32.0-36.0) g/dL RDW Coeff of [place] (10.0-15.0) % Plt Count (130-400) x10^3/uL Neut % (Auto) (50.0-80.0) % Lymph % (Auto) (25.0-50.0) % [place] % (Auto) (2.0-11.0) % Eos % (Auto) (0.0-4.0) % Baso % (Auto) (0.2-1.2) % PT 10.1 (9.5-12.3) SEC INR 0.9 L (2.0-3.5) APTT 24.7 L (25.6-32.8) SEC POC ABG pH 7.409 (7.35-7.45) POC ABG pCO2 51 H (35-45) mmHG POC ABG pO2 89 (80-105) mmHG POC ABG HCO3 32 H (22-26) mmol/L POC ABG Total CO2 34 H (23-27) mmol/L POC ABG O2 Sat 97 (95-98) % POC ABG Base Excess 8 H (-2-3) mmol/L POC FiO2 0.21 Sodium 138 (136-145) mmol/L Potassium 4.2 (3.5-5.1) mmol/L Chloride 99 (98-107) mmol/L Carbon Dioxide 33 H (21-32) mmol/L Anion Gap 10.2 (10-20) mmol/L BUN 17 (7-18) mg/dL Creatinine 0.9 (0.55-1.02) mg/dL Est Cr Clr Drug Dosing TNP Estimated GFR (MDRD) 60 Glucose 112 H (74-106) mg/dL Calcium 8.6 (8.5-10.1) mg/dL Corrected Calcium 9.08 (8.5-10.1) mg/dL Magnesium 2.2 (1.8-2.4) mg/dL Total Bilirubin 0.5 (0.2-1.0) mg/dL AST 16 (15-37) U/L ALT 15 (14-59) U/L Alkaline Phosphatase 48 (46-116) U/L Troponin I < 0.017 (<=0.056) ng/mL NT-Pro-B Natriuret Pep 76677 H (<=450) pg/mL Total Protein 6.4 (6.4-8.2) g/dL Albumin 3.4 (3.4-5.0) g/dL Globulin 3.0 Albumin/Globulin Ratio 1.13 Urine Color (YELLOW) Urine Appearance (CLEAR) Urine pH (5.0-8.0) Ur Specific [place] Urine Protein (NEGATIVE) mg/dL Urine Glucose (UA) (NEGATIVE) mg/dL Urine Ketones (NEGATIVE) mg/dL Urine Occult Blood (NEGATIVE) Urine Nitrite (NEGATIVE) Urine Bilirubin (NEGATIVE) Urine Urobilinogen (0.2) EU/dL Ur Leukocyte Esterase (NEGATIVE) Urine RBC (NOT SEEN) /HPF Urine WBC (NOT SEEN) /HPF Ur Squamous Epith Cells (NEGATIVE) /HPF Urine Bacteria (NEGATIVE) /HPF Urine Mucus (NEGATIVE) /LPF Urine Opiates Screen (NEGATIVE) Ur Buprenorphine Scrn (NEGATIVE) Ur Oxycodone Screen (NEGATIVE) Ur EDDP (Meth Metab) (NEGATIVE) Urine Methadone Screen (NEGATIVE) Ur Barbituates Screen (NEGATIVE) Ur Tricyclics Screen (NEGATIVE) Ur Phencyclidine Scrn (NEGATIVE) Ur Amphetamines Screen (NEGATIVE) U Methamphetamines Scrn (NEGATIVE) Urine MDMA Screen (NEGATIVE) U Benzodiazepines Scrn (NEGATIVE) Urine Cocaine Screen (NEGATIVE) U Marijuana (THC) Screen (NEGATIVE) Meds: Medications Discontinued Medications Generic Name Dose Route Start Last Admin Trade Name Freq PRN Reason Stop Dose Admin Hydrocodone Bitart/Acetaminophen 1 tab 11/22/19 08:06 11/22/19 08:20 Erwin 325-5 Mg PO 11/22/19 08:07 1 tab ONETIME ONE Administration - Radiology Interpretation Free Text/Narrative:: XR Right Rib=no acute findings XR Chest=stable, trace pleural effusion Departure - Departure Time of Disposition: 08:40 Disposition: DC/Tfer to Acute Hospital 02 Condition: Good Clinical Impression: Congestive heart failure Qualifiers: Heart failure type: unspecified Heart failure chronicity: acute on chronic Qualified Code(s): I50.9 - Heart failure, unspecified - Discharge Information Referrals: Yaa Jack MD [Primary Care Provider] - Forms: ED Department Discharge Additional Instructions: -Admit to Acute Care to Dr Ruth Robb Sepsis Event Note - Focused Exam Vital Signs: Vital Signs Temp Pulse Resp BP Pulse Ox Pulse Ox 11/22/19 08:37 97 11/22/19 08:36 36.7 C 66 22 H 116/64 98 11/22/19 07:00 36.2 C 72 18 119/68 98 Date Exam was Performed: 11/22/19 Time Exam was Performed: 08:39 - My Orders Last 24 Hours: My Active Orders 11/22/19 07:19 EKG Documentation Completion [RC] STAT 11/22/19 07:35 CULTURE BLOOD [BC] Stat 11/22/19 08:30 Admission Status [Patient Status] [ADT] Routine - Assessment/Plan Last 24 Hours: Emmie Active Orders 11/22/19 07:19 EKG Documentation Completion [RC] STAT 11/22/19 07:35 CULTURE BLOOD [BC] Stat 11/22/19 08:30 Admission Status [Patient Status] [ADT] Routine
[2019-11-22 08:02] LABS: BUPRENORPHINE,URINE NEGATIVE (NEGATIVE); MARIJUANA,URINE NEGATIVE (NEGATIVE); METHYLENEDIOXYMETHAMP,UR NEGATIVE (NEGATIVE); PHENCYCLIDINE,URINE NEGATIVE (NEGATIVE)
[2019-11-22] MEDS ORDERED: Acetaminophen/HYDROcodone 325-5 MG Tab PO ONE (08:06)
[2019-11-22 08:13] LABS: PTT,PARTIAL THROMBOPLSTIN TIME 24.7 SEC (25.6-32.8)
[2019-11-22 08:17] LABS: ANION GAP 10.2 mmol/L (10-20); CHLORIDE,CL 99 mmol/L (98-107); SODIUM,NA 138 mmol/L (136-145)
--- NOTE | 2019-11-22 08:34 | CR ---
[id number] RAD/RAD Ribs Right W PA Chest EXAM: RAD Ribs Right W PA Chest INDICATION: RIGHT RIB PAIN. COMPARISON: September 25, 2019. DISCUSSION: Cardiomediastinal silhouette is stable in size and contour. No infiltrate, effusion, pneumothorax, or edema. Pulmonary hyperinflation. Chronic blunting of the costophrenic angles. Trace right pleural effusion. Multiple old right-sided rib fractures. No definite acute rib fracture. IMPRESSION: No definite radiographic evidence of acute right-sided rib fracture. Glenn Lei DO 11/22/19 0832 Thank you for allowing us to participate in the care of your patient.
[2019-11-22] MEDS ORDERED: Albuterol/Ipratropium 3.0-0.5 MG/3 ML Neb Soln NEB PRN (10:28)
[2019-11-22] MEDS ORDERED: Take Home: LORazepam 0.5 MG Tab, 2 Tab Pack PO PRN (10:28)
[2019-11-22] MEDS: Enoxaparin 40 MG/0.4 ML Syringe SUBCUT SCH (12:39)
[2019-11-22] MEDS: Furosemide 40 MG/4 ML VIAL IV SCH ×2 (12:39→15:31)
[2019-11-22] MEDS: Cyclobenzaprine 10 MG Tab PO PRN (12:41)
[2019-11-22] MEDS: LORazepam 0.5 MG Tab PO PRN ×2 (12:41→21:16)
[2019-11-22] MEDS ORDERED: Acetaminophen/HYDROcodone 325-5 MG Tab PO SCH (14:00)
[2019-11-22] MEDS: Cholecalciferol (Vitamin D3) 25 MCG Tab PO SCH (15:44)
[2019-11-22] MEDS: Acetaminophen/HYDROcodone 325-5 MG Tab PO SCH ×2 (15:44→23:55)
[2019-11-22] MEDS ORDERED: Aluminum Hydroxide/Magnesium Hydroxide/Simethicone Susp 30 ML Cup PO PRN (17:27)
[2019-11-22] MEDS: Carvedilol 6.25 MG Tab PO SCH (18:35)
[2019-11-22] MEDS: Albuterol/Ipratropium 3.0-0.5 MG/3 ML Neb Soln NEB SCH (19:54)
[2019-11-22] MEDS: Budesonide 0.5 MG/2 ML Neb Susp NEB SCH (19:54)
[2019-11-22] MEDS: Calcium Carbonate/Vitamin D3 1250 MG-200 Unit Tab PO SCH (19:55)
[2019-11-22] MEDS: Acetaminophen 325 MG Tab PO SCH (19:55)
[2019-11-22] MEDS: atorvaSTATin 10 MG Tab PO SCH (19:56)
[2019-11-22] MEDS: Amiodarone 200 MG Tab PO SCH (19:56)
[2019-11-22] MEDS: Sodium Chloride 0.9% 10 ML Syringe IV PRN (21:18)
[2019-11-23] MEDS: Acetaminophen 325 MG Tab PO PRN (03:48)
[2019-11-23] MEDS: Pantoprazole 40 MG Tab.CR PO SCH (06:06)
[2019-11-23] MEDS: Albuterol/Ipratropium 3.0-0.5 MG/3 ML Neb Soln NEB SCH ×4 (07:20→19:02)
[2019-11-23] MEDS: Budesonide 0.5 MG/2 ML Neb Susp NEB SCH ×2 (07:20→19:02)
[2019-11-23] MEDS: Furosemide 40 MG/4 ML VIAL IV SCH (08:16)
[2019-11-23] MEDS: Polyethylene Glycol 3350 Powder 17 GM Packet PO SCH (08:17)
[2019-11-23] MEDS: Potassium Chloride 20 MEQ Packet PO SCH (08:17)
[2019-11-23] MEDS: Sodium Chloride 0.9% 10 ML Syringe IV PRN (08:17)
[2019-11-23] MEDS: Enoxaparin 40 MG/0.4 ML Syringe SUBCUT SCH (08:17)
[2019-11-23] MEDS: Acetaminophen 325 MG Tab PO SCH ×2 (08:28→19:59)
[2019-11-23] MEDS: LORazepam 0.5 MG Tab PO PRN ×2 (08:29→16:56)
[2019-11-23] MEDS: Acetaminophen/HYDROcodone 325-5 MG Tab PO SCH ×2 (08:29→15:31)
[2019-11-23] MEDS: Magnesium Oxide 400 MG Tab PO SCH (08:29)
[2019-11-23] MEDS: Amiodarone 200 MG Tab PO SCH ×2 (08:29→20:00)
[2019-11-23] MEDS: Calcium Carbonate/Vitamin D3 1250 MG-200 Unit Tab PO SCH ×2 (08:29→20:00)
[2019-11-23] MEDS: Carvedilol 6.25 MG Tab PO SCH ×2 (08:29→17:22)
[2019-11-23] MEDS: Sertraline 25 MG Tab PO SCH (08:30)
[2019-11-23 08:36] LABS: ANION GAP 9.1 mmol/L (10-20)
[2019-11-23] MEDS: Cyclobenzaprine 10 MG Tab PO PRN (15:31)
--- NOTE | 2019-11-23 16:12 | PN ---
Progress Note for [facility] Date: 11/23/2019 Room #: VM.204 SUBJECTIVE: This is hospital day #2 on an 84-year-old admitted for a systolic heart failure exacerbation. She has done amazing, diuresed over 10 pounds and down 3.9 L in just 24 hours. Her leg swelling has improved significantly. She states her breathing has also improved. She is on oxygen at night at home chronically but not during the day. She also has COPD. She has not been coughing. She has had no fever, no chills. Her telemetry showed no events. In fact, her only concern is that she does not want to return to her assisted living because of the quarantine. She is eating 100% of her meals. OBJECTIVE: VITAL SIGNS: Her temperature is 98.9, pulse 76, blood pressure 110/79, and respiratory rate 94 on 2 L. She did have a blood pressure drop down to 78 systolic last night after getting her Ativan, Coreg, and amiodarone. The patient says she needs the Ativan to relax. She has been on this chronically. GENERAL: She is in no acute distress. HEART: Regular rate and rhythm. S1, S2 without murmur. LUNGS: Lung sounds are clear to auscultation bilaterally without crackles or wheezes. ABDOMEN: Positive bowel sounds. Soft, nontender. EXTREMITIES: Warm and dry. No edema. MENTAL STATUS: She is alert. She is orientated x3. She is polite. She is answering questions. SKIN: She does have just some redness on her upper thoracic area. No open sores. Her right leg also has sort of an abrasion but no open wound, no drainage. LABORATORY WORK: White count normal at 6.7; hemoglobin 10.8, down slightly; and platelets 196. Troponins negative x3. Sodium 138, potassium 4.1, chloride 99, bicarbonate 34, BUN 15, creatinine 1.2, glucose 161, and calcium 8.3. UA again showed only 5 to 10 rbc's. It sounds like that blood sugar though was not fasting. ASSESSMENT: 1. Acute on chronic systolic heart failure exacerbation. The patient is improving greatly with intravenous Lasix. At this point, we will give her just the 40 that she was going to receive this morning intravenous and hold off on other intravenous Lasix. I did order 40 oral b.i.d. to start tomorrow but that can be adjusted by her primary care. We will repeat laboratory work. We will continue to follow telemetry. 2. Chronic chronic obstructive pulmonary disease, stable without exacerbation. 3. Anxiety and depression, on home medications. 4. History of aortic aneurysm, right at 4 cm. This is being followed up as an outpatient. 5. Discharge disposition. She is hopeful to speak with [facility] tomorrow regarding that. Referral was placed. 6. History of atrial fibrillation with RVR. She has been in sinus here. She continues on amiodarone and coreg. Message was sent to Cardiology regarding that duration and considerations for digoxin if needed. PLAN: At this point, the patient will continue on acute care. She got a dose of IV Lasix today. We will continue to monitor on telemetry. We will repeat her laboratory work tomorrow. For DVT prophylaxis, she is on Lovenox. I am going to switch her Ray wraps over to REYNA stockings. Dr. Jack to assume care tomorrow. KRYSTALA: 11/23/2019 11:11:42 MODL: 11/23/2019 12:09:36 /[id number] MTDD
[2019-11-23] MEDS: atorvaSTATin 10 MG Tab PO SCH (20:00)
[2019-11-24] MEDS: Acetaminophen/HYDROcodone 325-5 MG Tab PO SCH ×4 (00:09→23:35)
[2019-11-24] MEDS: Pantoprazole 40 MG Tab.CR PO SCH (06:11)
[2019-11-24] MEDS: Budesonide 0.5 MG/2 ML Neb Susp NEB SCH ×2 (06:12→19:39)
[2019-11-24] MEDS: Albuterol/Ipratropium 3.0-0.5 MG/3 ML Neb Soln NEB SCH ×4 (06:12→19:39)
[2019-11-24 06:45] LABS: ANION GAP 5.5 mmol/L (10-20)
[2019-11-24] MEDS ORDERED: Furosemide 40 MG Tab PO SCH ×2 (07:00→16:00)
[2019-11-24] MEDS: Enoxaparin 40 MG/0.4 ML Syringe SUBCUT SCH ×2 (07:32→08:21)
[2019-11-24] MEDS: Potassium Chloride 20 MEQ Packet PO SCH (07:32)
[2019-11-24] MEDS: Sertraline 25 MG Tab PO SCH (07:32)
[2019-11-24] MEDS: Docusate Sodium 100 MG Cap PO PRN ×2 (07:33→19:36)
[2019-11-24] MEDS: Carvedilol 6.25 MG Tab PO SCH ×2 (07:33→18:22)
[2019-11-24] MEDS: Amiodarone 200 MG Tab PO SCH ×2 (07:33→19:37)
[2019-11-24] MEDS: Calcium Carbonate/Vitamin D3 1250 MG-200 Unit Tab PO SCH ×2 (07:33→19:39)
[2019-11-24] MEDS: Acetaminophen 325 MG Tab PO SCH ×2 (07:34→19:37)
[2019-11-24] MEDS: Polyethylene Glycol 3350 Powder 17 GM Packet PO SCH (07:34)
[2019-11-24] MEDS: Magnesium Oxide 400 MG Tab PO SCH (07:34)
[2019-11-24] MEDS ORDERED: Furosemide 40 MG/4 ML VIAL IV SCH (08:00)
--- NOTE | 2019-11-24 08:07 | CR ---
[id number] RAD/RAD Chest PA And Lateral EXAM: RAD Chest PA And Lateral CLINICAL DATA: HYPOXIA COMPARISON: CORRELATION IS MADE WITH NOVEMBER 22, 2019 FINDINGS: Moderate bilateral effusions are seen There is volume loss at both lung bases There is no edema or definite infiltrate otherwise IMPRESSION: MODERATE BILATERAL EFFUSIONS Tyrese Olvera MD 11/24/19 0805 Thank you for allowing us to participate in the care of your patient.
[2019-11-24] MEDS: Furosemide 40 MG Tab PO SCH ×2 (08:36→15:49)
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
--- NOTE | 2019-11-24 10:19 | PN ---
Progress Note for [facility] PAT Date: 11/24/2019 Room #: VM.204 SUBJECTIVE: This is the patient's 3rd hospital day with being admitted with CHF exacerbation. The patient is feeling a little bit stronger, still some short of breath. She is having less swelling on her feet. She did receive IV Lasix over the weekend. It was noted that her blood pressure did drop down below 90, however, she was asymptomatic with being dizzy or lightheaded. She states she still does feel weak and not strong enough yet to go back to assisted living. She denies any sort of abdominal discomfort. She has been constipated. OBJECTIVE: VITAL SIGNS: Her weight is gone back up higher than what her preadmit weight was to 62.1, however, may have been a different scale, so she has gained 5 kg overnight which is somewhat suspect. Her blood pressure is 103/63, pulse is 76, respiratory rate is 18, and sats are 94% on 2 L. GENERAL: The patient is very hard of hearing. HEART: Regular rate. Telemetry has shown sinus rhythm. LUNGS: Have diminished breath sounds on bases. She has a protective pad on her spine to prevent ulcers. ABDOMEN: Soft and nontender. LOWER EXTREMITIES: Have trace edema. NEUROLOGIC: She is alert and pleasant to visit with, wanting to get stronger before going back home. LABORATORY DATA: Today shows that her white blood cell count 5.2, hemoglobin has dropped by 1.8 points. down to 9.0, MCV went up to 103.3. Sodium is 139, potassium 4.5, and creatinine is 1.0. GFR 53, glucose 86, and calcium 7.8. Troponin stayed normal less than 0.017. Chest x-ray today shows bilateral pleural effusions which has worsened from admission. IMPRESSION: 1. Congestive heart failure exacerbation. 2. Anemia, unclear if acute blood loss. 3. Chronic obstructive pulmonary disease. 4. Pulmonary hypertension. 5. Nocturnal hypoxemia. 6. Weakness. 7. Anxiety with depression. 8. Aortic aneurysm. 9. Constipation. PLAN: We will do EKG today on patient again to document where she is at. I do believe we can stop telemetry. We will stop her Lovenox because of dropping hemoglobin. She is waiting to be seen by both physical therapy as well as OT for both ADL assessment as well as cognitive evaluation. We will check a magnesium tomorrow as well. Repeat chest x-ray tomorrow. We will place her on oral Lasix now at a higher dose which she had been on at home. We will place her on 40 b.i.d. May need to go higher than that. Also ask social service assistant work with the patient about housing placement. The patient did have a nocturnal oxygen study right prior to admission and she does qualify for nocturnal oxygen. It is not certain if she requires oxygen with exertion and so we will also help document that. We will have her also work with incentive spirometry while she is here to help with chest wall strengthening as well. GM11/24/2019 08:33:10 MODL: 11/24/2019 09:03:06 /[id number] FELIX
[2019-11-24] MEDS ORDERED: Bisacodyl 10 MG Supp RECTAL PRN (13:17)
[2019-11-24] MEDS: Cholecalciferol (Vitamin D3) 25 MCG Tab PO SCH (13:48)
[2019-11-24] MEDS: atorvaSTATin 10 MG Tab PO SCH (19:39)
[2019-11-24] MEDS: Sodium Chloride 0.9% 10 ML Syringe IV PRN (19:39)
[2019-11-24] MEDS: LORazepam 0.5 MG Tab PO PRN (19:40)
[2019-11-25] MEDS: Acetaminophen 325 MG Tab PO PRN (05:02)
[2019-11-25] MEDS: Pantoprazole 40 MG Tab.CR PO SCH (06:05)
[2019-11-25] MEDS: Budesonide 0.5 MG/2 ML Neb Susp NEB SCH ×2 (07:18→21:00)
[2019-11-25] MEDS: Albuterol/Ipratropium 3.0-0.5 MG/3 ML Neb Soln NEB SCH ×4 (07:18→21:00)
[2019-11-25 07:41] LABS: ANION GAP 9.6 mmol/L (10-20)
[2019-11-25] MEDS ORDERED: Docusate Sodium 100 MG Cap PO PRN (08:23)
--- NOTE | 2019-11-25 08:32 | CR ---
[id number] RAD/RAD Chest PA And Lateral EXAM: FRONTAL AND LATERAL CHEST INDICATION: CONGESTIVE HEART FAILURE FOLLOW-UP. COMPARISON: November 24, 2019. DISCUSSION: There is cardiomegaly with stable mild central vascular congestion and small bilateral effusions. A moderate mid thoracic and other mild scattered vertebral compression fractures have not appreciably changed. Chronic right rib fractures. IMPRESSION: 1. Mild congestive heart failure with early central vascular congestion and small bilateral pleural effusions has not appreciably changed. Rajinder Farnsworth MD 11/25/19 0831 Thank you for allowing us to participate in the care of your patient.
[2019-11-25] MEDS: Polyethylene Glycol 3350 Powder 17 GM Packet PO SCH (08:42)
[2019-11-25] MEDS: Potassium Chloride 20 MEQ Packet PO SCH (08:42)
[2019-11-25] MEDS: Calcium Carbonate/Vitamin D3 1250 MG-200 Unit Tab PO SCH ×2 (08:46→21:00)
[2019-11-25] MEDS: Magnesium Oxide 400 MG Tab PO SCH (08:47)
[2019-11-25] MEDS: Acetaminophen 325 MG Tab PO SCH ×2 (08:48→21:00)
[2019-11-25] MEDS: Acetaminophen/HYDROcodone 325-5 MG Tab PO SCH ×3 (08:48→23:38)
[2019-11-25] MEDS: Furosemide 40 MG Tab PO SCH ×2 (08:53→15:16)
[2019-11-25] MEDS: Amiodarone 200 MG Tab PO SCH ×2 (08:57→21:00)
[2019-11-25] MEDS: Carvedilol 6.25 MG Tab PO SCH ×2 (08:57→18:12)
[2019-11-25] MEDS: Sertraline 25 MG Tab PO SCH (09:00)
[2019-11-25] MEDS: Sertraline 50 MG Tab PO SCH (09:03)
--- NOTE | 2019-11-25 10:08 | PN ---
Progress Note for [facility] PAT Date: 11/25/2019 Room #: VM.204 SUBJECTIVE: This is patient's fourth hospital day of heart failure exacerbation. She says she "can't breathe," but stated that she is on oxygen. Her sats were noted to be good, also with activity without oxygen she did drop down to 82%, and so does qualify for oxygen with activity as well. The patient was having problems with constipation. Did have success yesterday. The patient met with Physical Therapy, and they felt that she was at baseline. Yesterday, the patient was met with Occupational Therapy, and they do have some further assessments to do on the patient. Apparently, Dr. Ruth Robb had been talking with Cardiology about the patient and her use of amiodarone as well as echocardiogram. An echocardiogram was already scheduled in the clinic, and she does have a Cardiology appointment already set up as well. The patient seemed to not be aware of those. The patient comments that she is not getting her hydrocodone scheduled at the [facility], and I am not certain if it was ordered p.r.n. or scheduled. She has been getting it scheduled here. Also, her lorazepam can be q.8 hours p.r.n. The patient was started on Protonix when she was admitted. The patient says she has pain on her right side, but not really on her stomach. The patient states that she still does feel anxious at times. OBJECTIVE: Vital Signs: Her weight has improved to 59.3 kg down actually 2.7 kg. Her blood pressure is 108/60, pulse is 70, and sats are 94% on 2 L. General: She appears alert, calm, lying in bed. Heart: Regular rate. Lungs: Have diminished breath sounds on bases. Abdomen: Bowel sounds are present. Soft. Extremities: No edema. Psychiatric: Mood; she is alert. She appears a little bit negative. LABORATORY DATA AND X-RAY: Her hemoglobin has improved to 9.3 from 9.0 yesterday and platelets are 178. Sodium 139, potassium 4.6, creatinine 1.0, GFR is 53, and magnesium 2.0. LFTs are normal. ProBNP has improved to 10,916. Her stored iron levels came back showing ferritin was normal at 154, iron was low at 41, TIBC low at 202. Chest x-ray was done which appears to show slight improvement of bilateral effusions. IMPRESSION: 1. Acute exacerbation of chronic diastolic congestive heart failure. 2. Anemia, new onset, unclear if gastritis versus use from Lovenox. 3. Chronic anxiety disorder. 4. Chronic back pain. 5. Hypertension. 6. History of atrial fibrillation, currently controlled. 7. Anemia of chronic disease. 8. Constipation PLAN: We will have patient work with OT today. We will increase her Zoloft to 50 mg daily. She has already been placed on Protonix to help with stomach. We will set up for home oxygen evaluation with activity. She will be placed on colace on a scheduled basis to help with bowels. She already has nocturnaloxygen, and I do anticipate that the patient will be discharged home back to [facility] tomorrow. She will need to have COVID testing tomorrow to make sure that she is clear. The patient already has an echocardiogram set up and Cardiology appointment also set up in which they she will adjust her amiodarone dosing. GM11/25/2019 08:34:29 MODL: 11/25/2019 09:01:43 /[id number] FELIX
[2019-11-25] MEDS: Cyclobenzaprine 10 MG Tab PO PRN (15:16)
[2019-11-25] MEDS: atorvaSTATin 10 MG Tab PO SCH (21:00)
[2019-11-25] MEDS: LORazepam 0.5 MG Tab PO PRN (23:42)
[2019-11-26] MEDS: Pantoprazole 40 MG Tab.CR PO SCH (06:17)
[2019-11-26] MEDS: Acetaminophen 325 MG Tab PO PRN (06:26)
[2019-11-26 07:20] LABS: ANION GAP 8.4 mmol/L (10-20)
[2019-11-26] MEDS: Budesonide 0.5 MG/2 ML Neb Susp NEB SCH (07:32)
[2019-11-26] MEDS: Albuterol/Ipratropium 3.0-0.5 MG/3 ML Neb Soln NEB SCH ×2 (07:32→10:41)
[2019-11-26] MEDS: Acetaminophen 325 MG Tab PO SCH (08:20)
[2019-11-26] MEDS: Polyethylene Glycol 3350 Powder 17 GM Packet PO SCH (08:22)
[2019-11-26] MEDS: Carvedilol 6.25 MG Tab PO SCH (08:22)
[2019-11-26] MEDS: Amiodarone 200 MG Tab PO SCH (08:22)
[2019-11-26] MEDS: Calcium Carbonate/Vitamin D3 1250 MG-200 Unit Tab PO SCH (08:22)
[2019-11-26] MEDS: Furosemide 40 MG Tab PO SCH (08:23)
[2019-11-26] MEDS: Acetaminophen/HYDROcodone 325-5 MG Tab PO SCH (08:23)
[2019-11-26] MEDS: Sertraline 50 MG Tab PO SCH (08:23)
[2019-11-26] MEDS: Potassium Chloride 20 MEQ Packet PO SCH (08:23)
[2019-11-26] MEDS: Magnesium Oxide 400 MG Tab PO SCH (08:24)
--- NOTE | 2019-11-26 08:58 | PN ---
Progress Note for [facility] PAT Date: 11/26/2019 Room #: VM.204 SUBJECTIVE: This is patient's 5th hospital day for being admitted with heart failure exacerbation. She was found to have hypoxemia with walking, and so instead of just having oxygen on at night, she also has it on with activity, did need to help with adjusting her diuretics and went from IV to oral, which she is now maintaining. Her bowels also needed to have help, and we did increase her Zoloft. She has met with [employer] about helping her living environment to be better for her. She is not very happy with the assisted living center that she is at; however, there are not any alternatives right now. The patient says she still gets winded; however, this is at her baseline, and she is better since when she came in. OBJECTIVE: Vital Signs: Her weight has improved to 57.4 kg, down 1.9 kg from yesterday. Temperature is 35.6, blood pressure is 110/71, her pulse is 82, and saturations are 96% on 1 L. General: Objectively, she is calmly sitting in bed, no acute distress. Heart: Regular rate and rhythm. Lungs: Have diminished breath sounds on bases. Abdomen: Soft. Extremities: Lower extremities, no edema. Neurologic: The patient is hard of hearing neurologic ferreira. She is alert. She does get a little bit mixed up about her medications. LABORATORY DATA: Her lab today shows her hemoglobin is improving to 9.9, white blood cell count 4.6, platelets are 180. Sodium is 138, potassium 4.4, creatinine 0.9, GFR 60, glucose 90. IMPRESSION: 1. Acute Exacerbation of chronic diastolic congestive heart failure, which has stabilized. 2. Anemia, which is improving. 3. Hypoxemia. 4. Constipation. 5. Depression. 6. Mild cognitive dysfunction. 7. Chronic back pain. 8. COPD PLAN: I told the patient we will have her be discharged today as we are not doing anything medically that cannot be done at assisted living, and she will follow up to see me in a week's time. Her COVID testing has yet to be done this morning. GM11/26/2019 08:13:20 MODL: 11/26/2019 08:39:47 /[id number] FELIX
[2019-11-26 09:55] VITALS: BP 109/67; PULSE 84
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
== END 2019-11-26 13:00 | disposition home or self-care (01) | DRG 292 ==
LOC: VM.ED 06:53 → VM.MS 08:30
PROVIDERS: ADMIT Internal Medicine; ATTEND Internal Medicine
DX: I11.0 Hypertensive heart disease with heart failure (principal); I50.9 Heart failure, unspecified; E78.00 Pure hypercholesterolemia, unspecified; J96.11 Chronic respiratory failure with hypoxia; I50.33 Acute on chronic diastolic (congestive) heart failure; N34.2 Other urethritis; F41.9 Anxiety disorder, unspecified; M41.9 Scoliosis, unspecified; M47.896 Other spondylosis, lumbar region; Z20.828 Contact with and (suspected) exposure to other viral communicable diseases; M54.5 Low back pain; Z79.52 Long term (current) use of systemic steroids; G89.29 Other chronic pain; K59.00 Constipation, unspecified; I48.91 Unspecified atrial fibrillation; F32.9 Major depressive disorder, single episode, unspecified; G31.84 Mild cognitive impairment of uncertain or unknown etiology; M81.0 Age-related osteoporosis without current pathological fracture; K21.9 Gastro-esophageal reflux disease without esophagitis; D63.8 Anemia in other chronic diseases classified elsewhere; J43.1 Panlobular emphysema; E78.5 Hyperlipidemia, unspecified; E55.9 Vitamin D deficiency, unspecified; I25.10 Atherosclerotic heart disease of native coronary artery without angina pectoris; R31.9 Hematuria, unspecified; I27.20 Pulmonary hypertension, unspecified; I71.9 Aortic aneurysm of unspecified site, without rupture; Z88.0 Allergy status to penicillin; Z79.899 Other long term (current) drug therapy; Z90.89 Acquired absence of other organs
CPT/HCPCS: 36415; 36600; 71101; 80053; 80305; 81001; 82803; 83735; 83880; 84484; 85025; 85610; 85730; 87040; 93005; 93010; 99284; 99285; A9270; 71046; 80048; 82607; 82728; 82746; 82962; 83540; 83550; 94640; 94760; 97129-GO; 97130-GO; 97161-GP; 97165-GO; G0328; J1650; J1940; J7620-GY; U0002

== ENCOUNTER 2019-11-30 06:39 | Inpatient (IN) | payer MEDICARE, OTHER ==
[2019-11-30] MEDS ORDERED: Furosemide 40 MG/4 ML VIAL IV ONE (07:10)
[2019-11-30] MEDS ORDERED: Albuterol 0.083% 2.5 MG/3 ML Neb Soln NEB ONE (07:10)
[2019-11-30] MEDS: Sodium Chloride 0.9% 10 ML Syringe FLUSH PRN ×2 (07:29→20:44)
[2019-11-30 07:57] LABS: CHLORIDE,CL 98 mmol/L (98-107); SODIUM,NA 136 mmol/L (136-145)
--- NOTE | 2019-11-30 08:02 | EDM.PDOC ---
ED HPI GENERAL MEDICAL PROBLEM - General Chief Complaint: Respiratory Problem Stated Complaint: Shortness of breath Time Seen by Provider: 11/30/19 07:05 Source of Information: Reports: Patient History Limitations: Reports: No Limitations - History of Present Illness INITIAL COMMENTS - FREE TEXT/NARRATIVE: Patient comes emergency department today from the [facility] in [facility] ambulance with concerns of shortness of breath. This patient was just recently hospitalized in the hospital and discharged just a couple of days ago following an acute exacerbation of COPD. She had increase of her Lasix to 40 mg twice a day. She has a longstanding history of known heart failure with reduced ejection fraction. Since yesterday she has had increasing shortness of breath and exercise intolerance. It feels like her heart is pounding very aggressively. She is more short of breath than normal. She has no fever or chills. She has been using her nebulizers without improvement. She has no pain in her chest. No weakness dizziness lightheadedness. No abdominal pain nausea or vomiting. No hematuria dysuria or urinary frequency. No rash lesions or sores. Treatments PET TECHNOLOGIST: Reports: EKG, Oxygen Other Treatments PET TECHNOLOGIST: Duo neb Right Thoracic Pain Score (Numeric/FACES): 5 - Related Data Allergies Allergy/AdvReac Type Severity Reaction Status Date / Time Penicillins Allergy Itching Verified 11/30/19 07:05 Home Meds: Home Meds Cyclobenzaprine [Flexeril] 10 mg PO TID PRN 07/14/14 [History] Pantoprazole [ProTONIX] 40 mg PO DAILY 07/14/14 [History] Alendronate [Fosamax] 70 mg PO Q7D 06/15/18 [History] Calcitonin ([place]) [Miacalcin Nasal [place]] 1 spray NS BEDTIME 06/15/18 [History ] Cholecalciferol (Vitamin D3) [D3-2000] 4,000 unit PO Q48H 06/15/18 [History] atorvaSTATin [Lipitor] 10 mg PO BEDTIME 06/15/18 [History] estradioL [Estrace 0.01% Vaginal Crm] 0.5 applicful VAG BEDTIME PRN 06/15/18 [ History] polyethylene glycoL 3350 [MiraLAX] 34 gm PO DAILY 06/15/18 [History] LORazepam [Ativan] 0.5 mg PO TID PRN 09/21/19 [History] Calcium Carbonate/Vitamin D3 [Calcium Carbonate/Vitamin D 600 MG-200 Unit] 1 tab PO BID 09/22/19 [History] Budesonide [Pulmicort] 0.5 mg NEB BIDRT #60 neb 09/23/19 [Rx] carvediloL [Coreg] 6.25 mg PO BID tablet 09/23/19 [Rx] Acetaminophen 325 mg PO BID 11/22/19 [History] Acetaminophen [Tylenol] 650 mg PO Q6H PRN 11/22/19 [History] Albuterol/Ipratropium [DuoNeb 3.0-0.5 MG/3 ML] 3 ml NEB QID 11/22/19 [History] Amiodarone [Cordarone] 200 mg PO BID 11/22/19 [History] Hydrocodone/Acetaminophen [Hydrocodone-Acetamin 5-325 mg] 1 each PO TID [History] Magnesium Oxide 400 mg PO DAILY 11/22/19 [History] Potassium Chloride 25 meq PO DAILY 11/22/19 [History] Furosemide [Lasix] 40 mg PO BIDDIURETIC #60 tablet 11/26/19 [Rx] Sertraline [Zoloft] 50 mg PO DAILY #30 tablet 11/26/19 [Rx] Docusate Sodium [Colace] 100 mg PO BID 11/30/19 [History] Past Medical History HEENT History: Reports: Cataract Cardiovascular History: Reports: Afib, Aneurysm, Heart Failure, High Cholesterol , Hypertension, SOB on Exertion, Other (See Below) Other Cardiovascular History: mitral valve disorder. Abdominal aortic aneurysm without rupture Respiratory History: Reports: COPD, SOB, Other (See Below) Other Respiratory History: panlobular emphysema. dyspnea on exertion Gastrointestinal History: Reports: GERD, Other (See Below) Other Gastrointestinal History: mass of right inguinal region Genitourinary History: Reports: Other (See Below) Other Genitourinary History: chronic urethritis TERMINAL SYSTEM OPERATOR History: Reports: Other (See Below) Other TERMINAL SYSTEM OPERATOR History: atrophic vaginitis. vaginal itching Musculoskeletal History: Reports: Back Pain, Chronic, Osteoporosis Other Musculoskeletal History: scoliosis deformity of spine. closed fx of rib. closed fx of left shoulder. lumbar facet arthropathy Psychiatric History: Reports: Depression Endocrine/Metabolic History: Reports: Osteoporosis, Vitamin D Deficiency, Other (See Below) Other Endocrine/Metabolic History: abnormal thyroid blood test Dermatologic History: Reports: Other (See Below) Other Dermatologic History: atopic dermatitis. ulcer of elbow - Infectious Disease History Infectious Disease History: Reports: Chicken Pox, Measles, Mumps, Rubella - Past Surgical History HEENT Surgical History: Reports: Cataract Surgery, Tonsillectomy Female Surgical History: Reports: Cystoscopy, Tubal Ligation Musculoskeletal Surgical History: Reports: Other (See Below) Other Musculoskeletal Surgeries/Procedures:: lumbar radiculopathy. degeneration of lumbar or lumbosacral intervertebral disc Social & Family History - Family History Family Medical History: Noncontributory - Tobacco Use Smoking Status *Q: Former Smoker Years of Tobacco use: 25 Packs/Tins Daily: 1 Used Tobacco, but Quit: Yes Month/Year Tobacco Last Used: 0 - Caffeine Use Caffeine Use: Reports: Coffee Caffeine Use Comment: coffee daily and occasional soda ED ROS GENERAL - Review of Systems Review Of Systems: Comprehensive ROS is negative, except as noted in HPI. ED EXAM, GENERAL - Physical Exam Exam: See Below Exam Limited By: Respiratory Distress General Appearance: Alert, WD/WN, No Apparent Distress, Moderate Distress Eye Exam: Bilateral Eye: Normal Inspection Ears: Normal External Exam, Normal TMs Nose: Normal Inspection Throat/Mouth: Normal Inspection Head: Atraumatic, Normocephalic Neck: Normal Inspection Respiratory/Chest: Chest Non-Tender, Respiratory Distress (Clavicular retractions and audible wheezing. ), Decreased Breath Sounds, Crackles ( Bilaterally about 50% up the lung brown. ), Wheezing, Accessory Muscle Use, Retractions Cardiovascular: Normal Peripheral Pulses, Regular Rate, Rhythm Peripheral Pulses: 2+: Radial (L), Radial (R), Posterior Tibial (L), Posterior Tibial (R), Dorsalis Pedis (L), Dorsalis Pedis (R) GI/Abdominal: Normal Bowel Sounds, Soft, Non-Tender (Female) Exam: Deferred Rectal (Female) Exam: Deferred Back Exam: Normal Inspection, Full Range of Motion Extremities: Normal Inspection, Normal Range of Motion, Normal Capillary Refill , Pedal Edema (2+ bilaterally. ) Neurological: Alert, Oriented, Normal Cognition, No Motor/Sensory Deficits Psychiatric: Normal Affect, Normal Mood Skin Exam: Warm, Dry, Intact, Normal Color, No Rash EKG INTERPRETATION EKG Date: 11/30/19 Time: 06:57 Rhythm: NSR Rate (Beats/Min): 92 P-Wave: Present QRS: LBBB (old) ST-T: Normal Comparison: No Change Course - Vital Signs Last Recorded V/S: Last Vital Signs Temp 34.9 C L 11/30/19 18:51 Pulse 75 11/30/19 18:51 Resp 20 11/30/19 18:51 BP 88/42 L 11/30/19 18:51 Pulse Ox 91 L 11/30/19 18:51 - Orders/Labs/Meds Orders: Active Orders 24 hr Category Date Time Status RT Aerosol Therapy [RC] 07,11,,20 Care 11/30/19 07:10 Active Sodium Chloride 0.9% [Saline Flush] Med 11/30/19 07:08 Active 10 ml FLUSH ASDIRECTED PRN Peripheral IV Insertion Adult [OM.PC] Stat Oth 11/30/19 07:08 Ordered Medication Orders Acetaminophen (Tylenol) 325 mg PO BID [facility] Hydrocodone Bitart/Acetaminophen ([place] 325-5 Mg) 1 tab PO TID [facility] Last Admin: 11/30/19 12:04 Dose: 1 tab Albuterol/Ipratropium (Duoneb 3.0-0.5 Mg/3 Ml) 3 ml NEB QIDRT [facility] Last Admin: 11/30/19 15:00 Dose: 3 ml Admin: 11/30/19 11:59 Dose: 3 ml Alendronate Sodium (Fosamax) 70 mg PO Q7D@0600 [facility] Amiodarone HCl (Cordarone) 200 mg PO BID [facility] Last Admin: 11/30/19 12:05 Dose: 200 mg Atorvastatin Calcium (Lipitor) 10 mg PO BEDTIME [facility] Budesonide (Pulmicort) 0.5 mg NEB BIDRT [facility] Calcium Carbonate (Calcium Carbonate/Vitamin D 1250 Mg-200 Unit) 1 tab PO BID [facility] Carvedilol (Coreg) 12.5 mg PO BID [facility] Last Admin: 11/30/19 12:00 Dose: 12.5 mg Cholecalciferol (Vitamin D3) 100 mcg PO Q48H [facility] Cyclobenzaprine HCl (Flexeril) 10 mg PO TID PRN PRN Reason: Muscle Spasm Docusate Sodium (Colace) 100 mg PO BID [facility] Enoxaparin Sodium (Lovenox) 30 mg SUBCUT DAILY [facility] Last Admin: 11/30/19 11:59 Dose: 30 mg Furosemide (Lasix) 40 mg IV BIDDIURETIC [facility] Last Admin: 11/30/19 15:00 Dose: 40 mg Lorazepam (Ativan) 0.5 mg PO TID PRN PRN Reason: Anxiety Magnesium Oxide (Magnesium Oxide) 400 mg PO DAILY [facility] Last Admin: 11/30/19 12:05 Dose: 400 mg Pantoprazole Sodium (Protonix) 40 mg PO ACBREAKFAST [facility] Polyethylene Glycol (Miralax) 34 gm PO DAILY [facility] Last Admin: 11/30/19 12:00 Dose: Not Given Potassium Bicarbonate (Klor-Con Ef) 25 meq PO DAILY [facility] Last Admin: 11/30/19 11:53 Dose: 25 meq Sertraline HCl (Zoloft) 50 mg PO DAILY [facility] Last Admin: 11/30/19 12:03 Dose: 50 mg Sodium Chloride (Saline Flush) 10 ml FLUSH ASDIRECTED PRN PRN Reason: Keep Vein Open Last Admin: 11/30/19 07:29 Dose: 10 ml Labs: Laboratory Tests 11/30/19 11/30/19 11/30/19 Range/Units 07:23 07:23 07:23 WBC 8.4 (4.0-10.0) x10^3/uL RBC 3.05 L (4.00-5.50) x10^6/uL Hgb 10.2 L (12.0-16.0) g/dL Hct 31.4 L (33.0-47.0) % MCV 103.0 H (78.0-93.0) fL MCH 33.4 H (26.0-32.0) pg MCHC 32.5 (32.0-36.0) g/dL RDW Coeff of [place] 16.1 H (10.0-15.0) % Plt Count 236 (130-400) x10^3/uL Neut % (Auto) 80.5 H (50.0-80.0) % Lymph % (Auto) 9.3 L (25.0-50.0) % [place] % (Auto) 9.0 (2.0-11.0) % Eos % (Auto) 1.0 (0.0-4.0) % Baso % (Auto) 0.2 (0.2-1.2) % POC VBG pH (7.31-7.41) POC VBG pCO2 (41-51) POC VBG pO2 POC VBG HCO3 (23-28) POC VBG Total CO2 (24-29) POC VBG Base Excess ((-2) - 3) POC FiO2 Sodium 136 (136-145) mmol/L Potassium 4.0 (3.5-5.1) mmol/L Chloride 98 (98-107) mmol/L Carbon Dioxide 30 (21-32) mmol/L Anion Gap 12.0 (10-20) mmol/L BUN 17 (7-18) mg/dL Creatinine 1.1 H (0.55-1.02) mg/dL Est Cr Clr Drug Dosing 33.46 mL/min Estimated GFR (MDRD) 47 Glucose 146 H (74-106) mg/dL Lactic Acid 1.0 (0.4-2.0) mmol/L Calcium 8.2 L (8.5-10.1) mg/dL Corrected Calcium 8.76 (8.5-10.1) mg/dL Magnesium (1.8-2.4) mg/dL Total Bilirubin 0.6 (0.2-1.0) mg/dL AST 22 (15-37) U/L ALT 18 (14-59) U/L Alkaline Phosphatase 57 (46-116) U/L Troponin I < 0.017 (<=0.056) ng/mL C-Reactive Protein 1.1 H (<=0.9) mg/dL NT-Pro-B Natriuret Pep 53841 H (<=450) pg/mL Total Protein 6.4 (6.4-8.2) g/dL Albumin 3.3 L (3.4-5.0) g/dL Globulin 3.1 Albumin/Globulin Ratio 1.06 11/30/19 11/30/19 Range/Units 07:23 07:30 WBC (4.0-10.0) x10^3/uL RBC (4.00-5.50) x10^6/uL Hgb (12.0-16.0) g/dL Hct (33.0-47.0) % MCV (78.0-93.0) fL MCH (26.0-32.0) pg MCHC (32.0-36.0) g/dL RDW Coeff of [place] (10.0-15.0) % Plt Count (130-400) x10^3/uL Neut % (Auto) (50.0-80.0) % Lymph % (Auto) (25.0-50.0) % [place] % (Auto) (2.0-11.0) % Eos % (Auto) (0.0-4.0) % Baso % (Auto) (0.2-1.2) % POC VBG pH 7.41 (7.31-7.41) POC VBG pCO2 50 (41-51) POC VBG pO2 78 POC VBG HCO3 31 H (23-28) POC VBG Total CO2 33 H (24-29) POC VBG Base Excess 7 H ((-2) - 3) POC FiO2 0.21 Sodium (136-145) mmol/L Potassium (3.5-5.1) mmol/L Chloride (98-107) mmol/L Carbon Dioxide (21-32) mmol/L Anion Gap (10-20) mmol/L BUN (7-18) mg/dL Creatinine (0.55-1.02) mg/dL Est Cr Clr Drug Dosing mL/min Estimated GFR (MDRD) Glucose (74-106) mg/dL Lactic Acid (0.4-2.0) mmol/L Calcium (8.5-10.1) mg/dL Corrected Calcium (8.5-10.1) mg/dL Magnesium 2.3 (1.8-2.4) mg/dL Total Bilirubin (0.2-1.0) mg/dL AST (15-37) U/L ALT (14-59) U/L Alkaline Phosphatase (46-116) U/L Troponin I (<=0.056) ng/mL C-Reactive Protein (<=0.9) mg/dL NT-Pro-B Natriuret Pep (<=450) pg/mL Total Protein (6.4-8.2) g/dL Albumin (3.4-5.0) g/dL Globulin Albumin/Globulin Ratio Meds: Medications Generic Name Dose Route Start Last Admin Trade Name Freq PRN Reason Stop Dose Admin Acetaminophen 325 mg 11/30/19 20:00 Tylenol PO BID [facility] Hydrocodone Bitart/Acetaminophen 1 tab 06/07/20 12:00 11/30/19 12:04 [place] 325-5 Mg PO 1 tab TID [facility] Administration Albuterol/Ipratropium 3 ml 11/30/19 12:00 11/30/19 15:00 Duoneb 3.0-0.5 Mg/3 Ml NEB 3 ml QIDRT [facility] Administration Alendronate Sodium 70 mg 12/01/19 06:00 Fosamax PO Q7D@0600 [facility] Amiodarone HCl 200 mg 11/30/19 11:00 11/30/19 12:05 Cordarone PO 200 mg BID [facility] Administration Atorvastatin Calcium 10 mg 11/30/19 20:00 Lipitor PO BEDTIME [facility] Budesonide 0.5 mg 11/30/19 20:00 Pulmicort NEB BIDRT [facility] Calcium Carbonate 1 tab 11/30/19 20:00 Calcium Carbonate/Vitamin D 1250 Mg-200 Unit PO BID [facility] Carvedilol 12.5 mg 11/30/19 11:00 11/30/19 12:00 Coreg PO 12.5 mg BID [facility] Administration Cholecalciferol 100 mcg 11/30/19 18:00 Vitamin D3 PO Q48H [facility] Cyclobenzaprine HCl 10 mg 11/30/19 10:55 Flexeril PO TID PRN Muscle Spasm Docusate Sodium 100 mg 11/30/19 20:00 Colace PO BID [facility] Enoxaparin Sodium 30 mg 11/30/19 10:30 11/30/19 11:59 Lovenox SUBCUT 30 mg DAILY [facility] Administration Furosemide 40 mg 11/30/19 16:00 11/30/19 15:00 Lasix IV 40 mg BIDDIURETIC [facility] Administration Lorazepam 0.5 mg 11/30/19 10:55 Ativan PO TID PRN Anxiety Magnesium Oxide 400 mg 11/30/19 11:00 11/30/19 12:05 Magnesium Oxide PO 400 mg DAILY [facility] Administration Pantoprazole Sodium 40 mg 12/01/19 07:00 Protonix PO ACBREAKFAST [facility] Polyethylene Glycol 34 gm 11/30/19 11:00 11/30/19 12:00 Miralax PO Not Given DAILY [facility] Potassium Bicarbonate 25 meq 11/30/19 11:00 11/30/19 11:53 Klor-Con Ef PO 25 meq DAILY [facility] Administration Sertraline HCl 50 mg 11/30/19 11:00 11/30/19 12:03 Zoloft PO 50 mg DAILY [facility] Administration Sodium Chloride 10 ml 11/30/19 07:08 11/30/19 07:29 Saline Flush FLUSH 10 ml ASDIRECTED PRN Administration Keep Vein Open Discontinued Medications Generic Name Dose Route Start Last Admin Trade Name [place] PRN Reason Stop Dose Admin Albuterol 2.5 mg 11/30/19 07:10 11/30/19 07:27 Proventil Neb Soln NEB 11/30/19 07:11 2.5 mg ONETIME ONE Administration Furosemide 40 mg 11/30/19 07:10 11/30/19 07:27 Lasix IV 11/30/19 07:11 40 mg ONETIME ONE Administration Furosemide 60 mg 12/01/19 08:00 Lasix IV 12/01/19 08:01 DAILY ONE Furosemide 40 mg 11/30/19 16:00 Lasix IV DAILY [facility] Pantoprazole Sodium 40 mg 11/30/19 11:00 11/30/19 12:31 Protonix PO Not Given DAILY [facility] - Radiology Interpretation Free Text/Narrative:: This x-ray per radiology shows massive cardiomegaly. Similar to the prior exam. No infiltrate effusion pneumothorax or edema. The when I review it it clearly has some edema more prevalent than when she was just discharged from the hospital a couple of days ago. - Re-Assessments/Exams Free Text/Narrative Re-Assessment/Exam: 11/30/19 19:38 Was given albuterol nebulizer with improvement of her shortness of breath. Also given 40 mg of Lasix push. Chest x-ray per radiology really says no edema although I clearly see quite a bit of interstitial edema when compared to her chest x-ray just a couple of days ago when she was in the hospital. Patient's difficulty breathing was much improved. She was able to ambulate to the bathroom and she does become short of breath although with the 4 L of oxygen in place her oxygen saturation drops to 83%. The edema of her lower extremities is much improved when she was hospitalized earlier this week according to the nurse who actually saw her when she was in the hospital. We will admit her into the hospital under acute care status for heart failure with reduced ejection fraction hypoxia and COPD. She is comfortable with this plan and her questions are answered. Departure - Departure Time of Disposition: :50 Disposition: Admitted As Inpatient 67 Clinical Impression: Hypoxemia, Chronic systolic CHF (congestive heart failure), NYHA class 3, Heart failure with reduced ejection fraction COPD (chronic obstructive pulmonary disease) Qualifiers: COPD type: COPD with acute exacerbation Qualified Code(s): J44.1 - Chronic obstructive pulmonary disease with (acute) exacerbation - Discharge Information Sepsis Event Note - Evaluation Sepsis Screening Result: No Definite Risk - Focused Exam Date Exam was Performed: 11/30/19 Time Exam was Performed: 19:37 ED Communication - Discussed Case With (1) Discussed Case With (1): Admitting Provider (I called and spoke with Dr. Jack who is the patients primary care provider. I relayed that the patients SOB is worse then when she was discharged from the hospital her CXR is worse then her previous and her hospitalization her oxygen sats drop to 83% with any phsyical exertion on 4 liters of oxygen and becomes quite SOB. Her BNP is is higher than her previous hospitalization. Dr. Jack advises to discharge the patient home to the assisted living center. Although after further discussion Dr. Jack did come and see the patient and she will continue the patients care in the hospital.) - Problem List & Annotations (1) Heart failure with reduced ejection fraction SNOMED Code(s): 416457368 Code(s): I50.20 - UNSPECIFIED SYSTOLIC (CONGESTIVE) HEART FAILURE Status: Acute Current Visit: Yes (2) Chronic systolic CHF (congestive heart failure), NYHA class 3 SNOMED Code(s): 435522787, 103640645, 833170731 Code(s): I50.22 - CHRONIC SYSTOLIC (CONGESTIVE) HEART FAILURE Status: Acute Current Visit: Yes (3) COPD (chronic obstructive pulmonary disease) SNOMED Code(s): 10951213 Code(s): J44.9 - CHRONIC OBSTRUCTIVE PULMONARY DISEASE, UNSPECIFIED Status : Acute Priority: High Current Visit: Yes Qualifiers: COPD type: COPD with acute exacerbation Qualified Code(s): J44.1 - Chronic obstructive pulmonary disease with (acute) exacerbation (4) Anxiety SNOMED Code(s): 58035217 Code(s): F41.9 - ANXIETY DISORDER, UNSPECIFIED Status: Acute Current Visit: No (5) Hypoxia SNOMED Code(s): 575560466 Code(s): R09.02 - HYPOXEMIA Status: Acute Current Visit: Yes - Problem List Review Problem List Initiated/Reviewed/Updated: Yes - My Orders Last 24 Hours: My Active Orders 11/30/19 07:08 Sodium Chloride 0.9% [Saline Flush] 10 ml FLUSH ASDIRECTED PRN Peripheral IV Insertion Adult [OM.PC] Stat 11/30/19 07:10 RT Aerosol Therapy [RC] ,,, - Assessment/Plan Admission H&P: Please use this note as an admission H&P Last 24 Hours: My Active Orders 11/30/19 07:08 Sodium Chloride 0.9% [Saline Flush] 10 ml FLUSH ASDIRECTED PRN Peripheral IV Insertion Adult [OM.PC] Stat 11/30/19 07:10 RT Aerosol Therapy [RC] , Assessment:: Acute on Chronic CHF with Systolic CHF NYHA class 3. HRrEF COPD Hypoxia with increasing oxygen needs. Plan: 1: Acute on Chronic HFrEF NYHA class 3. Her last echo in 2018 showed an ejection fraction of 25% with global wall hypokinesis. Reviewing her chart from her recent hospitalization she had some hypotension with increasing doses of Lasix. I will keep her on the 40 mg of Lasix twice a day although I will switch it to IV at this time. The edema of her lower extremities appears to be much improved than her last hospitalization although edema is more prevalent within the chest x-ray as documented today. Her proBNP is much higher today than when she was in the hospital last time as well. I will increase her carvedilol to 12.5 mg twice a day as well. We will watch her blood pressure closely with this. Monitor her diuresis. Also repeat a chest x-ray in 2 days. Strict I&Os. Daily weights. 2: COPD without evidence of exacerbation at this time. Hypoxia is most likely from CHF Will continue to homes at this time and continue to monitor. Oxygen PRN. 3: Hypoxia: She typically at home is at 2 L of oxygen nasal cannula. At 4 L of oxygen nasal cannula in the emergency department she sits about 91 to 92%. Although with any physical exertion on the 4 L of oxygen her oxygen saturation drops almost immediately to 83 to 84%. Hopefully with the improvement of her congestive heart failure her hypoxia will resolve and improve. Due to the above worsening HFrEF and hypoxia and clearly failed outpatient management after her recent hospitalization I will admit her acute care for gentle diuresis. She is a very frail co-morbid female who failed outpatient management. She is only living at an assisted living center and we will not be able to closely monitor her there unlike a correction and she meets inpatient criteria at this time. Sepsis. Daily CBC. NO concerns at this time. Monitor. VTE: High Risk [place] will place on Lovenox. Dr. Jack did come and see the patient after she was admitted and will assume care of this patient.
--- NOTE | 2019-11-30 08:08 | CR ---
[id number] RAD/RAD Chest PA or AP 1V EXAM: RAD Chest PA or AP 1V INDICATION: SOB, HYPOXIA COMPARISON: None. DISCUSSION: Massive cardiomegaly, similar to the prior examination. No infiltrate, effusion, pneumothorax, or edema. Advanced changes of chronic obstructive pulmonary disease. 9 mm nodular opacity in the right lung apex not definitely seen on the prior examination from November 24. Findings nonspecific. Developing pneumonia is possible. Noncontrast chest CT is recommended for further evaluation. IMPRESSION: As above. Santi Ness MD 11/30/19 0807 Thank you for allowing us to participate in the care of your patient.
[2019-11-30] MEDS ORDERED: Cyclobenzaprine 10 MG Tab PO PRN (10:55)
[2019-11-30] MEDS ORDERED: LORazepam 0.5 MG Tab PO PRN (10:55)
[2019-11-30] MEDS ORDERED: Pantoprazole 40 MG Tab.CR PO SCH (11:00)
[2019-11-30] MEDS: Potassium Bicarbonate 25 MEQ Tab.EFF PO SCH (11:53)
[2019-11-30] MEDS: Albuterol/Ipratropium 3.0-0.5 MG/3 ML Neb Soln NEB SCH ×3 (11:59→20:36)
[2019-11-30] MEDS: Enoxaparin 30 MG/0.3 ML Syringe SUBCUT SCH (11:59)
[2019-11-30] MEDS: Carvedilol 12.5 MG Tab PO SCH ×2 (12:00→20:34)
[2019-11-30] MEDS: Polyethylene Glycol 3350 Powder 17 GM Packet PO SCH (12:00)
[2019-11-30] MEDS: Sertraline 50 MG Tab PO SCH (12:03)
[2019-11-30] MEDS: Acetaminophen/HYDROcodone 325-5 MG Tab PO SCH ×2 (12:04→20:36)
[2019-11-30] MEDS: Magnesium Oxide 400 MG Tab PO SCH (12:05)
[2019-11-30] MEDS: Amiodarone 200 MG Tab PO SCH ×2 (12:05→20:34)
--- NOTE | 2019-11-30 12:16 | PCM.SN.2 ---
- Free Text/Narrative Note: I appreciate care from Andrzej Apple [employer] as I misunderstood her oxygen requirements and concur she should be on acute care. I will assume her care. She felt good after discharge 11/27/2019 until last night she became more short of breath. I briefly said hello and her heart was regular and lungs were clear to auscultation. She has had increased looser stools with higher miralax dosing , so will reduce it to daily.
[2019-11-30] MEDS: Furosemide 40 MG/4 ML VIAL IV SCH (15:00)
[2019-11-30] MEDS ORDERED: Furosemide 40 MG/4 ML VIAL IV SCH (16:00)
[2019-11-30] MEDS ORDERED: Cholecalciferol (Vitamin D3) 25 MCG Tab PO SCH (18:00)
[2019-11-30] MEDS: Docusate Sodium 100 MG Cap PO SCH (20:32)
[2019-11-30] MEDS: Calcium Carbonate/Vitamin D3 1250 MG-200 Unit Tab PO SCH (20:32)
[2019-11-30] MEDS: atorvaSTATin 10 MG Tab PO SCH (20:32)
[2019-11-30] MEDS: Budesonide 0.5 MG/2 ML Neb Susp NEB SCH (20:36)
[2019-11-30] MEDS: Acetaminophen 325 MG Tab PO SCH (20:38)
[2019-12-01] MEDS ORDERED: Alendronate 70 MG Tab PO SCH (06:00)
[2019-12-01] MEDS: Acetaminophen 325 MG Tab PO SCH ×3 (06:08→19:42)
[2019-12-01] MEDS: Albuterol/Ipratropium 3.0-0.5 MG/3 ML Neb Soln NEB SCH ×4 (06:21→19:41)
[2019-12-01] MEDS: Budesonide 0.5 MG/2 ML Neb Susp NEB SCH ×2 (06:23→19:48)
[2019-12-01] MEDS: Pantoprazole 40 MG Tab.CR PO SCH (06:25)
[2019-12-01] MEDS ORDERED: Furosemide 40 MG/4 ML VIAL IV ONE (08:00)
[2019-12-01] MEDS: Docusate Sodium 100 MG Cap PO SCH ×2 (08:21→19:42)
[2019-12-01] MEDS: Magnesium Oxide 400 MG Tab PO SCH (08:22)
[2019-12-01] MEDS: Acetaminophen/HYDROcodone 325-5 MG Tab PO SCH ×3 (08:22→19:41)
[2019-12-01] MEDS: Carvedilol 12.5 MG Tab PO SCH ×2 (08:22→19:46)
[2019-12-01] MEDS: Calcium Carbonate/Vitamin D3 1250 MG-200 Unit Tab PO SCH ×2 (08:23→19:43)
[2019-12-01] MEDS: Furosemide 40 MG/4 ML VIAL IV SCH (08:23)
[2019-12-01] MEDS: Potassium Bicarbonate 25 MEQ Tab.EFF PO SCH (08:23)
[2019-12-01] MEDS: Amiodarone 200 MG Tab PO SCH ×2 (08:23→19:46)
[2019-12-01] MEDS: Sertraline 50 MG Tab PO SCH (08:23)
[2019-12-01 08:25] LABS: ANION GAP 9.3 mmol/L (10-20)
[2019-12-01] MEDS: Polyethylene Glycol 3350 Powder 17 GM Packet PO SCH (08:25)
[2019-12-01] MEDS: Enoxaparin 30 MG/0.3 ML Syringe SUBCUT SCH (08:25)
--- NOTE | 2019-12-01 08:45 | PN ---
Progress Note for HUGO PAT Date: 12/01/2019 Room #: VM.204 SUBJECTIVE: This is the patient's second hospital day for heart failure exacerbation. To note, she says she just does not feel right. She says at times her heart had been pounding, but now it is better. The patient was noted to have quite a bit more oxygen requirement on admission, up to 4 L, instead of her baseline 2 L. The patient has been given IV diuretics. To note, her blood pressure tends to run around the upper 80s systolic, but she tolerates this and is not lightheaded, so we have left her on the same medications of IV. OBJECTIVE: Vital Signs: Her weight is up. Today, her temperature is 35.8, pulse 69, blood pressure is 89/57, respiratory rate is 18, and saturations are 95%. Skin: [place], warm, and dry. Heart: Regular rate. Lungs: Have diminished breath sounds on bases. Abdomen: Soft. Extremities: Lower extremities, no edema. Psychiatric: Her mood is alert, bright, talkative. She does not appear in any acute distress. LABORATORY DATA: Lab work ferreira, shows her white blood cell count 4.4, hemoglobin has dropped to 8.7, platelets are 201. Basic metabolic profile is pending yet today. IMPRESSION: 1. Exacerbation of congestive heart failure. 2. Anemia. 3. Severe chronic obstructive pulmonary disease. 4. Atrial fibrillation. 5. Depression. PLAN: We will continue her on her IV diuretics right now. We will stop her Lovenox because of concerns for loss of blood, and tomorrow maybe resume heparin. However, the patient has been up ambulating fairly well, and we will see how she does with closely monitoring her blood pressure and oxygen levels. She may need transfer to [facility] now for more urgent workup of her CHF with echo as we are not able to do this as an inpatient here. We will continue cardiac monitoring on her. Did tell the patient that her status is somewhat tenuous and that her heart function is not good, and she may eventually become terminal from this and may need to consider just palliative care and/or hospice care. We will continue her sertraline at 50 mg daily also to help with her mood. GM12/01/2019 08:12:42 MODL: 12/01/2019 08:40:34 /[id number]
[2019-12-01] MEDS: Furosemide 20 MG/2 ML VIAL IV SCH (15:57)
[2019-12-01] MEDS: atorvaSTATin 10 MG Tab PO SCH (19:44)
[2019-12-01] MEDS: Sodium Chloride 0.9% 10 ML Syringe FLUSH PRN (19:48)
[2019-12-02] MEDS: Albuterol/Ipratropium 3.0-0.5 MG/3 ML Neb Soln NEB SCH (06:30)
[2019-12-02] MEDS: Budesonide 0.5 MG/2 ML Neb Susp NEB SCH (06:31)
[2019-12-02] MEDS: Pantoprazole 40 MG Tab.CR PO SCH (06:31)
[2019-12-02 07:35] LABS: ANION GAP 9.2 mmol/L (10-20)
--- NOTE | 2019-12-02 08:09 | CR ---
[id number] RAD/RAD Chest PA And Lateral EXAM: RAD Chest PA And Lateral INDICATION: CHF FOLLOWUP. COMPARISON: Multiple priors, most recent from November 30, 2019. DISCUSSION: Again seen is cardiomegaly and central vascular congestion, similar in appearance to prior examination. Nodular opacity seen on the prior examination is stable. Lateral view demonstrates bilateral pleural effusions. No significant change compared to examination from November 25, 2019. No evidence of pneumonia or other acute findings. IMPRESSION: Overall, no significant change in radiographic appearance compared to prior examinations, including most recent from November 24 and November 30, 2019. Santi Ness MD 12/02/19 0808 Thank you for allowing us to participate in the care of your patient.
[2019-12-02] MEDS: Acetaminophen 325 MG Tab PO SCH (08:11)
[2019-12-02] MEDS: Carvedilol 12.5 MG Tab PO SCH (08:12)
[2019-12-02] MEDS: Magnesium Oxide 400 MG Tab PO SCH (08:12)
[2019-12-02] MEDS: Amiodarone 200 MG Tab PO SCH (08:14)
[2019-12-02] MEDS: Acetaminophen/HYDROcodone 325-5 MG Tab PO SCH (08:14)
[2019-12-02] MEDS: Sertraline 50 MG Tab PO SCH (08:14)
[2019-12-02] MEDS: Potassium Bicarbonate 25 MEQ Tab.EFF PO SCH (08:15)
[2019-12-02] MEDS: Docusate Sodium 100 MG Cap PO SCH (08:15)
[2019-12-02] MEDS: Calcium Carbonate/Vitamin D3 1250 MG-200 Unit Tab PO SCH (08:15)
[2019-12-02] MEDS: Furosemide 20 MG/2 ML VIAL IV SCH (08:15)
[2019-12-02] MEDS: Polyethylene Glycol 3350 Powder 17 GM Packet PO SCH (08:31)
[2019-12-02 10:31] VITALS: BP 86/52; PULSE 72
--- NOTE | 2019-12-02 12:08 | PN ---
Progress Note for HUGO PAT Date: 12/02/2019 Room #: VM.204 SUBJECTIVE: This is patient's 3rd hospital day of getting admitted with CHF exacerbation. The patient feels maybe a little better today, but not much. She still gets quite winded with activity. She is not feeling dizzy or lightheaded, however, it is noted that her systolic blood pressure has been running in the 80s. Her bowels have been active. OBJECTIVE: Vital Signs: Her weight is down to 56.4 kg, down 1.4 kg from yesterday, but up 0.4 from admission. Her blood pressure is 95/46, pulse 75, saturations are 97 on 2.5 L. Heart: Irregularly irregular. Lungs: Diminished breath sounds on bases. Abdomen: Soft. Lower Extremities: No edema. LABORATORY DATA: Shows that her white blood cell count is same at 5.8, hemoglobin has improved slightly to 9.1. Sodium is 139, potassium 4.2, creatinine just slight elevation at 1.1, BUN is 23, GFR is 47, calcium 8.1. CRP is 1.9. ProBNP has improved slightly at 12,315. Chest x-ray is the same as before, which shows bilateral pleural effusions. IMPRESSION: 1. Exacerbation of congestive heart failure. 2. Severe chronic obstructive pulmonary disease. 3. Chronic back pain. 4. Hypotension. PLAN: Because of inability to really further diurese her more aggressively because of her hypotension, I feel she needs the care of monorail car operator. As we are not able to get an echocardiogram here to further assess heart function, the patient is agreeable to going to [place]. We will contact [facility] and talk about referring her to [place]. GM12/02/2019 09:23:47 MODL: 12/02/2019 09:57:48 /[id number]
--- NOTE | 2019-12-02 12:27 | DISCH ---
PRIMARY DIAGNOSES: 1. Acute exacerbation of chronic diastolic congestive heart failure. 2. Hypotension. 3. Severe chronic obstructive pulmonary disease. 4. Increased hypoxemia. 5. Anemia, newer onset. 6. Chronic depression. 7. Chronic back pain. 8. Chronic atrial fibrillation. 9. Chronic anxiety disorder. 10. Right lung nodule, old. SUMMARY OF ADMIT HISTORY AND PHYSICAL: The patient is an 84-year-old female who presented to the emergency room with increased shortness of breath with increased oxygen requirements. The patient lives at assisted living and her O2 sats were noted to be dropping into the 80s. She required 4 L of oxygen instead of her usual 2 L. She was seen in the emergency room by ANABELA Allen, given nebulizer, and then Lasix 40 IV push. Chest x-ray showed no clear edema, but really not unchanged from when she had just been recently discharged. Her breathing had improved, but her oxygen requirements were still 4 L, so therefore it was felt she needed hospitalization. Her lab on presentation showed negative COVID test. Her white blood cell count 8.4, hemoglobin 10.2, sodium 136, potassium 4.0, creatinine 1.1, GFR 47, BUN 17, glucose 146, lactic acid 1.0. LFTs normal. Troponin less than 0.017, CRP 1.1. ProBNP 16,222. Her venous blood gases showed pH of 7.41, venous pCO2 of 50, venous PO2 of 78, venous bicarb 31, venous base excess 7. Magnesium was 2.3. EKG showed atrial fibrillation with left bundle-branch block. To note, the patient had recently been hospitalized from 11/22/2019 to 11/26/2019 with exacerbation of CHF, and at that time placed on increased diuretics as well as increased Zoloft for patient, and also she at that time did require oxygen with activity during the day which was new for her at 1 L. SUMMARY OF HOSPITAL COURSE: The patient's dose of carvedilol had been increased from 6.25 to 12.5 mg. She was given IV Lasix 40 mg b.i.d. It was noted that her blood pressure would drop down to 85/51. She was not symptomatic, so it still continued. Unfortunately, her weight had gone up the 1st day from 56.0 kg up to 57.8 kg, which was somewhat concerning. However, on 12/02/2019, her weight had gone down to 56.4, but still higher than her admission weight. Her proBNP had slightly improved to 12,313, but still concerningly high. Her renal function was quite good with creatinine 1.1 and GFR 47. Her hemoglobin did drop from admission from 10.2 down to 8.7, which is felt to possibly be related to her Lovenox, and so her Lovenox was stopped. Her oral lasix was help and she was given lasix 40 mg IV bid, until 12/01/2019 where dose was dropped to 20 mg IV bid. Her coreg was increased to 12.5 mg twice a day. Her oxygen requirements reduced from 4 liters to 2.5 liters. To note, she did have hemoglobin issues while she was recently hospitalized and 1 stool was heme-positive. She had already been on Protonix for her stomach at that time and hemoglobin had stabilized. At the time of discharge, last time, her hemoglobin had been at 9.9 from an admit hemoglobin on 11/22/2019 of 11.4. When the patient did have blood gases on 11/22/2019, her pCO2 at that time had been 51. Because of the inability to further diurese her safely without causing further hypotension, it was felt that she needed echocardiogram as well as assistance of Cardiology consult to be available. The patient is code level 2, do not resuscitate/do not intubate. To note, she is willing to go for evaluation by Cardiology. MEDICATIONS: To note, her medications at discharge will be Protonix 40 mg 1 pill daily, Flexeril 10 mg 1 pill 3 times a day as needed, MiraLAX 34 g daily, Miacalcin 1 spray at bedtime, Lipitor 10 mg at bedtime, Estrace vaginal cream p.r.n., vitamin D 4000 units every 48 hours, lorazepam 0.5 mg 1 pill t.i.d. p.r.n., calcium with vitamin D 11/1199 one b.i.d., Pulmicort neb 0.5 b.i.d., amiodarone 200 mg b.i.d., magnesium 400 mg 1 pill daily, hydrocodone 5/325 one pill 3 times a day, Tylenol 325 one pill b.i.d. scheduled, DuoNeb 3 mL q.i.d., Tylenol 650 q.6 hours p.r.n. Her furosemide of 40 mg b.i.d. was held as she is on the 40 mg IV b.i.d. Zoloft is 50 mg daily, docusate 100 mg b.i.d., potassium 25 mEq daily, Fosamax 70 mg 1 pill once a month. Some non-formulary drug 2 scoops q.4 to 8 hours p.r.n., wonder if that is MiraLAX, and her carvedilol was increased to 12.5 mg b.i.d. 2, and Lasix has been 40 mg b.i.d. I do anticipate the patient should hopefully be able to return back to assisted living. 35 minutes time was spent doing discharge and coordinating care for patient. GM12/02/2019 09:55:07 MODL: 12/02/2019 11:54:26 /[id number] [id number]
== END 2019-12-02 11:15 | disposition short-term general hospital (02) | DRG 292 ==
LOC: VM.ED 06:39 → VM.MS 09:50
PROVIDERS: ADMIT Family Medicine; ATTEND Family Medicine
DX: J43.1 Panlobular emphysema (principal); R09.02 Hypoxemia; I11.0 Hypertensive heart disease with heart failure; I50.22 Chronic systolic (congestive) heart failure; I48.20 Chronic atrial fibrillation, unspecified; I50.33 Acute on chronic diastolic (congestive) heart failure; I95.9 Hypotension, unspecified; K21.9 Gastro-esophageal reflux disease without esophagitis; N34.2 Other urethritis; D64.9 Anemia, unspecified; F32.9 Major depressive disorder, single episode, unspecified; M54.9 Dorsalgia, unspecified; M41.9 Scoliosis, unspecified; G89.29 Other chronic pain; F41.9 Anxiety disorder, unspecified; Z98.49 Cataract extraction status, unspecified eye; R91.8 Other nonspecific abnormal finding of lung field; I48.91 Unspecified atrial fibrillation; Z79.51 Long term (current) use of inhaled steroids; I44.7 Left bundle-branch block, unspecified; E78.00 Pure hypercholesterolemia, unspecified; J43.9 Emphysema, unspecified; I71.4 Abdominal aortic aneurysm, without rupture; M81.0 Age-related osteoporosis without current pathological fracture; E55.9 Vitamin D deficiency, unspecified; Z90.89 Acquired absence of other organs; Z98.51 Tubal ligation status; Z87.891 Personal history of nicotine dependence; Z88.0 Allergy status to penicillin; Z79.899 Other long term (current) drug therapy
CPT/HCPCS: 36415; 71045; 71046; 80053; 82803; 83605; 83735; 83880; 84484; 85025; 86140; 93005; 94640; 96374; 97161-GP; 99285-25; A9270-GY; J1650; J1940; J7613-GY; J7620-GY

== ENCOUNTER 2021-01-12 14:21 | Emergency (ER) | payer MEDICARE, OTHER ==
[2021-01-12] MEDS ORDERED: Sodium Chloride 0.9% 10 ML Syringe FLUSH PRN (14:37)
--- NOTE | 2021-01-12 14:45 | EDM.PDOC ---
ED HPI GENERAL MEDICAL PROBLEM - General Stated Complaint: ER Time Seen by Provider: 01/12/21 14:34 Source of Information: Reports: Patient, EMS - History of Present Illness INITIAL COMMENTS - FREE TEXT/NARRATIVE: Elizabeth is an 85 y/o female who is brought to the ER by EMS after she fell at the assisted living center where she resides. She was sitting on the commode and then reports getting dizzy and falling off. Her left leg was bent behind her body when she was found. She reports feeling a "snap" below her left knee. She really has not had any other sx prior other than the fact that she states she has had a decreased appetite. Patient denies pain, unless she is moved. - Related Data Allergies Allergy/AdvReac Type Severity Reaction Status Date / Time Penicillins Allergy Itching Verified 01/12/21 14:46 Home Meds: Home Meds Cyclobenzaprine [Flexeril] 10 mg PO TID PRN 07/14/14 [History] Pantoprazole [ProTONIX] 40 mg PO DAILY 07/14/14 [History] Calcitonin ([place]) [Miacalcin Nasal [place]] 1 spray NS BEDTIME 06/15/18 [History] Cholecalciferol (Vitamin D3) [D3-2000] 4,000 unit PO Q48H 06/15/18 [History] atorvaSTATin [Lipitor] 10 mg PO BEDTIME 06/15/18 [History] estradioL [Estrace 0.01% Vaginal Crm] 0.5 applicful VAG BEDTIME PRN 06/15/18 [History] polyethylene glycoL 3350 [MiraLAX] 34 gm PO DAILY 06/15/18 [History] LORazepam [Ativan] 0.5 mg PO TID PRN 09/21/19 [History] Calcium Carbonate/Vitamin D3 [Calcium Carbonate/Vitamin D 600 MG-200 Unit] 1 tab PO BID 09/22/19 [History] Budesonide [Pulmicort] 0.5 mg NEB BIDRT #60 neb 09/23/19 [Rx] Acetaminophen 325 mg PO BID 11/22/19 [History] Acetaminophen [Tylenol] 650 mg PO Q6H PRN 11/22/19 [History] Albuterol/Ipratropium [DuoNeb 3.0-0.5 MG/3 ML] 3 ml NEB QID 11/22/19 [History] Hydrocodone/Acetaminophen [HYDROcodone-Acetaminophen 5-325 MG] 1 tab PO TID 11/22/19 [History] Magnesium Oxide 400 mg PO DAILY 11/22/19 [History] Sertraline [Zoloft] 50 mg PO DAILY #30 tablet 11/26/19 [Rx] Docusate Sodium [Colace] 100 mg PO BID 11/30/19 [History] Alendronate Sodium [Fosamax] 70 mg PO MO@0700 12/01/19 [History] Non-Formulary Medication [NF Drug] 2 scoop PO Q48H PRN 12/01/19 [History] Levothyroxine 75 mcg PO ACBREAKFAST 01/12/21 [History] Lubiprostone [Amitiza] 24 mcg PO DAILY 01/12/21 [History] Melatonin 5 mg PO BEDTIME 01/12/21 [History] Naproxen 500 mg PO DAILY 01/12/21 [History] Spironolactone [Aldactone] 25 mg PO DAILY 01/12/21 [History] carvediloL [Coreg] 3.125 mg PO DAILY 01/12/21 [History] metOLazone [Metolazone] 2.5 mg PO FR 01/12/21 [History] Past Medical History HEENT History: Reports: Cataract Cardiovascular History: Reports: Afib, Aneurysm, Heart Failure, High Cholesterol, Hypertension, SOB on Exertion, Other (See Below) Other Cardiovascular History: mitral valve disorder. Abdominal aortic aneurysm without rupture Respiratory History: Reports: COPD, SOB, Other (See Below) Other Respiratory History: panlobular emphysema. dyspnea on exertion Gastrointestinal History: Reports: GERD, Other (See Below) Other Gastrointestinal History: mass of right inguinal region Genitourinary History: Reports: Other (See Below) Other Genitourinary History: chronic urethritis GEOLOGIC TECHNICIAN History: Reports: Other (See Below) Other GEOLOGIC TECHNICIAN History: atrophic vaginitis. vaginal itching Musculoskeletal History: Reports: Back Pain, Chronic, Osteoporosis Other Musculoskeletal History: scoliosis deformity of spine. closed fx of rib. closed fx of left shoulder. lumbar facet arthropathy Psychiatric History: Reports: Depression Endocrine/Metabolic History: Reports: Osteoporosis, Vitamin D Deficiency, Other (See Below) Other Endocrine/Metabolic History: abnormal thyroid blood test Dermatologic History: Reports: Other (See Below) Other Dermatologic History: atopic dermatitis. ulcer of elbow - Infectious Disease History Infectious Disease History: Reports: Chicken Pox, Measles, Mumps, Rubella - Past Surgical History HEENT Surgical History: Reports: Cataract Surgery, Tonsillectomy Female Surgical History: Reports: Cystoscopy, Tubal Ligation Musculoskeletal Surgical History: Reports: Other (See Below) Other Musculoskeletal Surgeries/Procedures:: lumbar radiculopathy. degeneration of lumbar or lumbosacral intervertebral disc Social & Family History - Family History Family Medical History: No Pertinent Family History - Caffeine Use Caffeine Use: Reports: Coffee Caffeine Use Comment: coffee daily and occasional soda Review of Systems - Review of Systems Review Of Systems: See Below Constitutional: Reports: No Symptoms Eyes: Reports: No Symptoms Ears: Reports: Dizziness Nose: Reports: No Symptoms Mouth/Throat: Reports: No Symptoms Respiratory: Reports: No Symptoms Cardiovascular: Reports: No Symptoms GI/Abdominal: Reports: Decreased Appetite Genitourinary: Reports: No Symptoms Musculoskeletal: Reports: Leg Pain (left leg/hip with movement) Skin: Reports: No Symptoms Neurological: Reports: Dizziness Psychiatric: Reports: No Symptoms ED EXAM, GENERAL - Physical Exam Exam: See Below General Appearance: Alert, WD/WN, No Apparent Distress (Elderly female) Ears: Hearing Grossly Normal Nose: Normal Inspection, Normal Mucosa Throat/Mouth: Normal Inspection, Normal Lips, Normal Voice Head: Atraumatic, Other Neck: Normal Inspection, Supple Respiratory/Chest: No Respiratory Distress, Lungs Clear Cardiovascular: Normal Peripheral Pulses, Regular Rate, Rhythm, No Murmur GI/Abdominal: Normal Bowel Sounds, Soft (Female) Exam: Normal External Exam Rectal (Female) Exam: Deferred Extremities: Other (+ Tenderness over left fermoral region, + pain with movement, note left leg is slightly shortened and externally rotated) Neurological: Alert, Oriented, CN II-XII Intact, Normal Cognition Psychiatric: Normal Affect, Normal Mood Skin Exam: Warm, Dry, Intact, Normal Color Lymphatic: No Adenopathy #1 Interpretation EKG Date: 01/12/21 Time: 15:15 Rhythm: A-Fib Rate (Beats/Min): 73 [place]: Normal P-Wave: Absent QRS: LBBB ST-T: Normal QT: Normal EKG Interpretation Comments: A Fib, controlled with LBBB Course - Vital Signs Text/Narrative:: 1434 The patient was sen by the ELECTRICAL LOGGING ENGINEER. Labs, EKG, and Xray ordered. She was offered pain meds, but not having any pain when not moving. 1500 Xray reviewed at bedside by ELECTRICAL LOGGING ENGINEER. Note left proximal femoral shaft fracture. 1517 [facility] contacted. Dr King, Ortho sugar plantation manager, accepted the patient for transfer to the ER. Fentanyl 50mcg IVP, IV fluids, and Zofran given prior to transport. Labs pending. Damian placed. Patient NPO. Labs reviewed. CBC Hgb=10.3, Hct=30.5; CMP BUN=55, Driller Machine=1.9, Lfwgpvq=199; Troponin neg. UA pending. Suspect Dehydration as cause of the dizziness and subsequently the fall. Will continue IV fluids @ 250ml/hr for transport. Patient was stable for transport and left the ER with [facility]. Last Recorded V/S: Last Vital Signs Temp 36.7 C 01/12/21 14:21 Pulse 78 01/12/21 15:24 Resp 18 01/12/21 14:21 BP 83/34 L 01/12/21 15:24 Pulse Ox 95 01/12/21 14:21 - Orders/Labs/Meds Orders: Active Orders 24 hr Category Date Time Status EKG Documentation Completion [RC] STAT Care 01/12/21 14:37 Ordered Hip Min 1V w Pelvis Lt [CR] Stat Exams 01/12/21 14:37 Ordered Sodium Chloride 0.9% @ 500 MLS/HR(500ml) Med 01/12/21 14:55 Ordered Sodium Chloride 0.9% [Normal Saline] 500 ml IV ONETIME Sodium Chloride 0.9% [Saline Flush] Med 01/12/21 14:37 Ordered 10 ml FLUSH ASDIRECTED PRN Saline Lock Insert [OM.PC] Stat Oth 01/12/21 14:37 Ordered Medication Orders Sodium Chloride (Normal Saline) 500 mls @ 500 mls/hr IV ONETIME ONE Stop: 01/12/21 15:54 Last Admin: 01/12/21 15:13 Dose: 500 mls/hr Documented by: Sodium Chloride (Sodium Chloride 0.9% 10 Ml Syringe) 10 ml FLUSH ASDIRECTED PRN PRN Reason: Keep Vein Open Labs: Laboratory Tests 01/12/21 01/12/21 Range/Units 14:49 14:49 WBC 5.0 (4.0-10.0) x10^3/uL RBC 3.08 L (4.00-5.50) x10^6/uL Hgb 10.3 L (12.0-16.0) g/dL Hct 30.5 L (33.0-47.0) % MCV 99.0 H D (78.0-93.0) fL MCH 33.4 H (26.0-32.0) pg MCHC 33.8 (32.0-36.0) g/dL RDW Coeff of [place] 13.0 (10.0-15.0) % Plt Count 244 (130-400) x10^3/uL Neut % (Auto) 64.8 (50.0-80.0) % Lymph % (Auto) 20.1 L (25.0-50.0) % [place] % (Auto) 12.3 H (2.0-11.0) % Eos % (Auto) 2.4 (0.0-4.0) % Baso % (Auto) 0.4 (0.2-1.2) % Sodium 140 (136-145) mmol/L Potassium 4.1 (3.5-5.1) mmol/L Chloride 99 (98-107) mmol/L Carbon Dioxide 36 H (21-32) mmol/L Anion Gap 9.1 (5-15) mmol/L BUN 55 H D (7-18) mg/dL Creatinine 1.9 H (0.55-1.02) mg/dL Est Cr Clr Drug Dosing TNP Estimated GFR (MDRD) 25 Glucose 135 H (70-99) mg/dL Calcium 8.1 L (8.5-10.1) mg/dL Corrected Calcium 8.7 (8.5-10.1) mg/dL Magnesium 2.8 H (1.8-2.4) mg/dL Total Bilirubin 0.6 (0.2-1.0) mg/dL AST 14 L (15-37) U/L ALT 14 (14-59) U/L Alkaline Phosphatase 38 L (46-116) U/L Troponin I High Sens 7 (<=51) ng/L Total Protein 6.5 (6.4-8.2) g/dL Albumin 3.3 L (3.4-5.0) g/dL Globulin 3.2 Albumin/Globulin Ratio 1.03 Meds: Medications Generic Name Dose Route Start Last Admin Trade Name Freq PRN Reason Stop Dose Admin Sodium Chloride 500 mls @ 500 mls/hr 01/12/21 14:55 01/12/21 15:13 Normal Saline IV 01/12/21 15:54 500 mls/hr ONETIME ONE Administration Sodium Chloride 10 ml 01/12/21 14:37 Sodium Chloride 0.9% 10 Ml Syringe FLUSH ASDIRECTED PRN Keep Vein Open Discontinued Medications Generic Name Dose Route Start Last Admin Trade Name Freq PRN Reason Stop Dose Admin Fentanyl 50 mcg 01/12/21 14:55 01/12/21 15:14 Fentanyl 50 Mcg/Ml Sdv IVPUSH 01/12/21 14:56 50 mcg ONETIME ONE Administration Ondansetron HCl 4 mg 01/12/21 14:56 01/12/21 15:14 Ondansetron 4 Mg/2 Ml Sdv IVPUSH 01/12/21 14:57 4 mg ONETIME ONE Administration - Radiology Interpretation Free Text/Narrative:: XR Left Hip/Pelvis=note complete fracture of the proximal fermoral shaft with angulation (See final report) Departure - Departure Time of Disposition: 15:25 Disposition: Home, Self-Care 01 Condition: Good Clinical Impression: Renal insufficiency, Dehydration Femoral shaft fracture Qualifiers: Encounter type: initial encounter Fracture type: closed Fracture morphology: unspecified fracture morphology Laterality: left Qualified Code(s): S72.302A - Unspecified fracture of shaft of left femur, initial encounter for closed fracture Fall Qualifiers: Encounter type: initial encounter Qualified Code(s): W19.XXXA - Unspecified fall, initial encounter - Discharge Information Referrals: Carole Pal MD [Primary Care Provider] - Forms: Interfacility Transfer EMTALA Additional Instructions: -Transfer to [facility] via [facility] for Ortho Referral/Surgical Intervention Sepsis Event Note (ED) - Focused Exam Vital Signs: Vital Signs Temp Pulse Resp BP Pulse Ox 01/12/21 15:24 78 83/34 L 01/12/21 14:21 36.7 C 76 18 91/55 L 95 - My Orders Last 24 Hours: My Active Orders 01/12/21 14:37 EKG Documentation Completion [RC] STAT Hip Min 1V w Pelvis Lt [CR] Stat Sodium Chloride 0.9% [Saline Flush] 10 ml FLUSH ASDIRECTED PRN Saline Lock Insert [OM.PC] Stat 01/12/21 14:55 Sodium Chloride 0.9% @ 500 MLS/HR(500ml) Sodium Chloride 0.9% [Normal Saline] 500 ml IV ONETIME - Assessment/Plan Last 24 Hours: My Active Orders 01/12/21 14:37 EKG Documentation Completion [RC] STAT Hip Min 1V w Pelvis Lt [CR] Stat Sodium Chloride 0.9% [Saline Flush] 10 ml FLUSH ASDIRECTED PRN Saline Lock Insert [OM.PC] Stat 01/12/21 14:55 Sodium Chloride 0.9% @ 500 MLS/HR(500ml) Sodium Chloride 0.9% [Normal Saline] 500 ml IV ONETIME Assessment:: 1)Left Femoral Shaft Fracture 2)Fall 3)Renal Insufficiency 4)Dehydration Plan: As above
[2021-01-12] MEDS ORDERED: Sodium Chloride 0.9% 500 ML IV ONE (14:55)
[2021-01-12] MEDS ORDERED: fentaNYL 50 MCG/ML SDV IVPUSH ONE (14:55)
[2021-01-12] MEDS ORDERED: Ondansetron 4 MG/2 ML SDV IVPUSH ONE (14:56)
[2021-01-12 15:22] LABS: ANION GAP 9.1 mmol/L (5-15); CHLORIDE,CL 99 mmol/L (98-107); SODIUM,NA 140 mmol/L (136-145)
[2021-01-12 15:27] VITALS: BP 83/34; PULSE 78
--- NOTE | 2021-01-12 15:34 | CR ---
[id number] RAD/RAD Pelvis 1V W 2V Left Hip Exam: RAD Pelvis 1V W 2V Left Hip Clinical Data: TRAUMA COMPARISON: NO PREVIOUS SIMILAR EXAM IS AVAILABLE FINDINGS: A proximal left femoral diaphyseal fracture is seen There is angulation convex laterally There is avulsion of the lesser trochanter There is posterior displacement of the distal fracture fragment The distal abdominal aorta appears widened IMPRESSION: COMPLEX PROXIMAL LEFT FEMORAL FRACTURE Tyrese Olvera MD 01/12/21 0608 Thank you for allowing us to participate in the care of your patient.
== END 2021-01-12 16:22 | disposition short-term general hospital (02) ==
LOC: VM.ED 14:21
DX: S72.302A Unspecified fracture of shaft of left femur, initial encounter for closed fracture (principal); N28.9 Disorder of kidney and ureter, unspecified; E86.0 Dehydration; I48.91 Unspecified atrial fibrillation; I11.0 Hypertensive heart disease with heart failure; I50.9 Heart failure, unspecified; E78.00 Pure hypercholesterolemia, unspecified; J44.9 Chronic obstructive pulmonary disease, unspecified; E03.9 Hypothyroidism, unspecified; K21.9 Gastro-esophageal reflux disease without esophagitis; Z79.899 Other long term (current) drug therapy; Z88.0 Allergy status to penicillin; W18.39XA Other fall on same level, initial encounter
CPT/HCPCS: 36415; 51702; 80053; 81001; 83735; 84484; 85025; 93005; 93010; 99284; 99285-25; J2405; J3010; J7040

== ENCOUNTER 2021-01-19 03:30 | Inpatient (IN) | payer MEDICARE, OTHER ==
--- NOTE | 2021-01-19 04:05 | EDM.PDOC ---
ED HPI GENERAL MEDICAL PROBLEM - General Time Seen by Provider: 01/19/21 03:35 Source of Information: Reports: EMS, Old Records History Limitations: Reports: No Limitations - History of Present Illness INITIAL COMMENTS - FREE TEXT/NARRATIVE: Pt. presents to ER via EMS from [facility]. Pt. fell secondary to syncopal episode, fracturing her L hip on 01/12. He was initially transported to this facility and then to [facility] in [place], at which time she underwent surgical fixation of the hip. She was discharged today, and is now a resident at [facility]. She is a code 2. Nurse states that the patient was alert and oriented in the evening last night. She was on O2 per NC at 4Lmin. She was able to communicate. Nurse states that when she checked on the patient after midnight, she was minimally responsive, hypoxic with O2 sat in the 70% range on O2 per NC, hypotensive. Staff states that she offered no complaint prior to the event. Pt. was on O2 per NC at 2L/min on rounds yesterday AM. Her O2 sat was 96% at that time, and she had been complaining of some shortness of breath. According to pt. discharge summary from yesterday, pt. was complaining of severe pain and swelling in the operative extremity. She is currently on lovenox 40mg once daily. She was having troubles with urinary retention and rosas catheter was placed prior to discharge. She has been getting oxycodone for pain control, and has been on hydrocodone for the past 30 years due to chronic pain. She has a history of heart failure and ischemic cardiomyopathy. Echo on 01/13 showed EF of 20% with global hypokinesis of LV, no hemodynamically significant valvular heart disease, thrombus, or pericardial effusion. On exam on arrival to ER, pt. minimally responsive, does not answer questions. She is maintaining her own airway and moans to strong verbal stimuli. ROS unobtainable at this time. Onset: Today Onset Date: 01/19/21 Location: Reports: Generalized - Related Data Allergies Allergy/AdvReac Type Severity Reaction Status Date / Time Penicillins Allergy Itching Verified 01/19/21 05:30 Home Meds: Home Meds Cyclobenzaprine [Flexeril] 10 mg PO TID PRN 07/14/14 [History] Pantoprazole [ProTONIX] 40 mg PO DAILY 07/14/14 [History] Calcitonin ([place]) [Miacalcin Nasal [place]] 1 spray NS BEDTIME 06/15/18 [H istory] Cholecalciferol (Vitamin D3) [D3-2000] 4,000 unit PO Q48H 06/15/18 [History] atorvaSTATin [Lipitor] 10 mg PO BEDTIME 06/15/18 [History] estradioL [Estrace 0.01% Vaginal Crm] 0.5 applicful VAG BEDTIME PRN 06/15/18 [History] polyethylene glycoL 3350 [MiraLAX] 34 gm PO DAILY 06/15/18 [History] LORazepam [Ativan] 0.5 mg PO TID PRN 09/21/19 [History] Calcium Carbonate/Vitamin D3 [Calcium Carbonate/Vitamin D 600 MG-200 Unit] 1 tab PO BID 09/22/19 [History] Budesonide [Pulmicort] 0.5 mg NEB BIDRT #60 neb 09/23/19 [Rx] Acetaminophen 325 mg PO BID 11/22/19 [History] Acetaminophen [Tylenol] 650 mg PO Q6H PRN 11/22/19 [History] Albuterol/Ipratropium [DuoNeb 3.0-0.5 MG/3 ML] 3 ml NEB QID 11/22/19 [History] Hydrocodone/Acetaminophen [HYDROcodone-Acetaminophen 5-325 MG] 1 tab PO TID 11/22/19 [History] Magnesium Oxide 400 mg PO DAILY 11/22/19 [History] Sertraline [Zoloft] 50 mg PO DAILY #30 tablet 11/26/19 [Rx] Docusate Sodium [Colace] 100 mg PO DAILY 11/30/19 [History] Alendronate Sodium [Fosamax] 70 mg PO MO@0700 12/01/19 [History] Non-Formulary Medication [NF Drug] 2 scoop PO Q48H PRN 12/01/19 [History] Levothyroxine 75 mcg PO ACBREAKFAST 01/12/21 [History] Lubiprostone [Amitiza] 24 mcg PO DAILY 01/12/21 [History] Melatonin 5 mg PO BEDTIME 01/12/21 [History] Naproxen 500 mg PO DAILY 01/12/21 [History] Spironolactone [Aldactone] 25 mg PO DAILY 01/12/21 [History] carvediloL [Coreg] 3.125 mg PO DAILY 01/12/21 [History] metOLazone [Metolazone] 2.5 mg PO FR 01/12/21 [History] Past Medical History HEENT History: Reports: Cataract Cardiovascular History: Reports: Afib, Aneurysm, Heart Failure, High Cholesterol, Hypertension, SOB on Exertion, Other (See Below) Other Cardiovascular History: mitral valve disorder. Abdominal aortic aneurysm without rupture Respiratory History: Reports: COPD, SOB, Other (See Below) Other Respiratory History: panlobular emphysema. dyspnea on exertion Gastrointestinal History: Reports: GERD, Other (See Below) Other Gastrointestinal History: mass of right inguinal region Genitourinary History: Reports: Other (See Below) Other Genitourinary History: chronic urethritis [employer] History: Reports: Other (See Below) Other [employer] History: atrophic vaginitis. vaginal itching Musculoskeletal History: Reports: Back Pain, Chronic, Osteoporosis Other Musculoskeletal History: scoliosis deformity of spine. closed fx of rib. closed fx of left shoulder. lumbar facet arthropathy Psychiatric History: Reports: Depression Endocrine/Metabolic History: Reports: Osteoporosis, Vitamin D Deficiency, Other (See Below) Other Endocrine/Metabolic History: abnormal thyroid blood test Dermatologic History: Reports: Other (See Below) Other Dermatologic History: atopic dermatitis. ulcer of elbow - Infectious Disease History Infectious Disease History: Reports: Chicken Pox, Measles, Mumps, Rubella - Past Surgical History HEENT Surgical History: Reports: Cataract Surgery, Tonsillectomy Female Surgical History: Reports: Cystoscopy, Tubal Ligation Musculoskeletal Surgical History: Reports: Other (See Below) Other Musculoskeletal Surgeries/Procedures:: lumbar radiculopathy. degeneration of lumbar or lumbosacral intervertebral disc Social & Family History - Family History Family Medical History: No Pertinent Family History - Caffeine Use Caffeine Use: Reports: Coffee Caffeine Use Comment: coffee daily and occasional soda ED ROS GENERAL - Review of Systems Review Of Systems: Unable To Obtain Reason Not Obtained: decreased LOC ED EXAM, GENERAL - Physical Exam Exam: See Below Exam Limited By: No Limitations General Appearance: Lethargic, Obtunded Eye Exam: Bilateral Eye: EOMI, Normal Fundi, Normal Inspection Throat/Mouth: Normal Lips, Normal Voice, No Airway Compromise Head: Atraumatic Neck: Normal Inspection, Supple Respiratory/Chest: Decreased Breath Sounds, Crackles, Rhonchi Cardiovascular: Normal Peripheral Pulses, Regular Rate, Rhythm, No JVD, No Murmur Peripheral Pulses: 3+: Radial (L) GI/Abdominal: Soft, No Distention, No Mass (Female) Exam: Deferred Rectal (Female) Exam: Deferred Extremities: Other (Various bruises noted to upper extremities, skin tear to R elbow) Neurological: Disoriented (minimally responsive) Psychiatric: Flat Affect Skin Exam: Warm, Dry, Intact, Pallor #1 Interpretation Rhythm: NSR QRS: LBBB Course - Vital Signs Last Recorded V/S: Last Vital Signs Temp 36.7 C 01/19/21 03:30 Pulse 74 01/19/21 03:30 Resp 24 H 01/19/21 03:30 BP 106/72 01/19/21 03:30 Pulse Ox 96 01/19/21 03:30 - Orders/Labs/Meds Orders: Active Orders 24 hr Category Date Time Status EKG Documentation Completion [RC] STAT Care 01/19/21 03:38 Active CTA Chest W WO Contrast [Ang Chest] [CT] Stat Exams 01/19/21 03:54 Ordered Chest 1V Frontal [CR] Stat Exams 01/19/21 03:38 Ordered Head wo Cont [CT] Stat Exams 01/19/21 03:46 Ordered COMPREHENSIVE METABOLIC PN,CMP [CHEM] Stat Lab 01/19/21 04:15 Results CRP [C-REACTIVE PROTEIN] [CHEM] Stat Lab 01/19/21 04:15 Results CULTURE BLOOD [BC] Stat Lab 01/19/21 04:15 Received CULTURE BLOOD [BC] Stat Lab 01/19/21 04:21 Received MAGNESIUM [CHEM] Stat Lab 01/19/21 04:15 Results PHOSPHORUS [CHEM] Stat Lab 01/19/21 04:15 Results PRO B-TYPE NATRIUR PEPT,BNPPRO [CHEM] Stat Lab 01/19/21 04:15 Results TROPONIN I HIGH SENSITIVITY [CHEM] Stat Lab 01/19/21 04:15 Results UA RFX ALONZO AND CULT IF INDIC [URIN] Stat Lab 01/19/21 03:39 Ordered Sodium Chloride 0.9% [Saline Flush] Med 01/19/21 03:38 Active 10 ml FLUSH ASDIRECTED PRN Blood Culture x2 Reflex Set [OM.PC] Stat Oth 01/19/21 03:39 Ordered Peripheral IV Insertion Adult [OM.PC] Routine Oth 01/19/21 03:39 Ordered Medication Orders Sodium Chloride (Sodium Chloride 0.9% 10 Ml Syringe) 10 ml FLUSH ASDIRECTED PRN PRN Reason: Keep Vein Open Labs: Laboratory Tests 01/19/21 01/19/21 01/19/21 Range/Units 04:00 04:15 04:15 WBC 5.8 (4.0-10.0) x10^3/uL RBC 2.36 L (4.00-5.50) x10^6/uL Hgb 7.7 L D (12.0-16.0) g/dL Hct 24.0 L (33.0-47.0) % MCV 101.7 H (78.0-93.0) fL MCH 32.6 H (26.0-32.0) pg MCHC 32.1 (32.0-36.0) g/dL RDW Coeff of [place] 15.3 H (10.0-15.0) % Plt Count 241 (130-400) x10^3/uL Neut % (Auto) 66.0 (50.0-80.0) % Lymph % (Auto) 18.1 L (25.0-50.0) % [place] % (Auto) 13.5 H (2.0-11.0) % Eos % (Auto) 2.1 (0.0-4.0) % Baso % (Auto) 0.3 (0.2-1.2) % PT 9.3 L (9.9-12.5) SEC INR 0.8 L (2.0-3.5) VBG pH (7.33-7.43) pH VBG pCO2 (41-51) mmHG VBG pO2 mmHG VBG HCO3 (22-29) mmol/L VBG Total CO2 (23-30) mmol/L VBG O2 Saturation % VBG Base Excess ((-2)-3) mmol/L Sodium (136-145) mmol/L Potassium (3.5-5.1) mmol/L Chloride (98-107) mmol/L Carbon Dioxide (21-32) mmol/L Anion Gap (5-15) mmol/L BUN (7-18) mg/dL Creatinine (0.55-1.02) mg/dL Est Cr Clr Drug Dosing Estimated GFR (MDRD) Glucose (70-99) mg/dL Lactic Acid (0.4-2.0) mmol/L Calcium (8.5-10.1) mg/dL Corrected Calcium (8.5-10.1) mg/dL Phosphorus (2.6-4.7) mg/dL Magnesium (1.8-2.4) mg/dL Total Bilirubin (0.2-1.0) mg/dL AST (15-37) U/L ALT (14-59) U/L Alkaline Phosphatase (46-116) U/L Troponin I High Sens (<=51) ng/L C-Reactive Protein (<=0.9) mg/dL Total Protein (6.4-8.2) g/dL Albumin (3.4-5.0) g/dL Globulin Albumin/Globulin Ratio Procalcitonin (0.1-0.50) ng/mL SARS CoV-2 RNA Rapid CHAPARRO Negative (NEGATIVE) 01/19/21 01/19/21 01/19/21 Range/Units 04:15 04:15 04:15 WBC (4.0-10.0) x10^3/uL RBC (4.00-5.50) x10^6/uL Hgb (12.0-16.0) g/dL Hct (33.0-47.0) % MCV (78.0-93.0) fL MCH (26.0-32.0) pg MCHC (32.0-36.0) g/dL RDW Coeff of [place] (10.0-15.0) % Plt Count (130-400) x10^3/uL Neut % (Auto) (50.0-80.0) % Lymph % (Auto) (25.0-50.0) % [place] % (Auto) (2.0-11.0) % Eos % (Auto) (0.0-4.0) % Baso % (Auto) (0.2-1.2) % PT (9.9-12.5) SEC INR (2.0-3.5) VBG pH 7.28 L* (7.33-7.43) pH VBG pCO2 55 H (41-51) mmHG VBG pO2 42 mmHG VBG HCO3 26 (22-29) mmol/L VBG Total CO2 27 (23-30) mmol/L VBG O2 Saturation 70 % VBG Base Excess -1 ((-2)-3) mmol/L Sodium 142 (136-145) mmol/L Potassium 3.9 (3.5-5.1) mmol/L Chloride 109 H (98-107) mmol/L Carbon Dioxide 28 (21-32) mmol/L Anion Gap 8.9 (5-15) mmol/L BUN 22 H D (7-18) mg/dL Creatinine 1.0 (0.55-1.02) mg/dL Est Cr Clr Drug Dosing TNP Estimated GFR (MDRD) 53 Glucose 158 H (70-99) mg/dL Lactic Acid 1.0 (0.4-2.0) mmol/L Calcium 7.9 L (8.5-10.1) mg/dL Corrected Calcium 9.5 (8.5-10.1) mg/dL Phosphorus 3.1 (2.6-4.7) mg/dL Magnesium 2.7 H (1.8-2.4) mg/dL Total Bilirubin 0.8 (0.2-1.0) mg/dL AST 25 (15-37) U/L ALT 13 L (14-59) U/L Alkaline Phosphatase 53 (46-116) U/L Troponin I High Sens 29 (<=51) ng/L C-Reactive Protein 8.2 H (<=0.9) mg/dL Total Protein 6.4 (6.4-8.2) g/dL Albumin 2.0 L (3.4-5.0) g/dL Globulin 4.4 Albumin/Globulin Ratio 0.45 Procalcitonin (0.1-0.50) ng/mL SARS CoV-2 RNA Rapid [place]O (NEGATIVE) 01/19/21 Range/Units 04:15 WBC (4.0-10.0) x10^3/uL RBC (4.00-5.50) x10^6/uL Hgb (12.0-16.0) g/dL Hct (33.0-47.0) % MCV (78.0-93.0) fL MCH (26.0-32.0) pg MCHC (32.0-36.0) g/dL RDW Coeff of [place] (10.0-15.0) % Plt Count (130-400) x10^3/uL Neut % (Auto) (50.0-80.0) % Lymph % (Auto) (25.0-50.0) % [place] % (Auto) (2.0-11.0) % Eos % (Auto) (0.0-4.0) % Baso % (Auto) (0.2-1.2) % PT (9.9-12.5) SEC INR (2.0-3.5) VBG pH (7.33-7.43) pH VBG pCO2 (41-51) mmHG VBG pO2 mmHG VBG HCO3 (22-29) mmol/L VBG Total CO2 (23-30) mmol/L VBG O2 Saturation % VBG Base Excess ((-2)-3) mmol/L Sodium (136-145) mmol/L Potassium (3.5-5.1) mmol/L Chloride (98-107) mmol/L Carbon Dioxide (21-32) mmol/L Anion Gap (5-15) mmol/L BUN (7-18) mg/dL Creatinine (0.55-1.02) mg/dL Est Cr Clr Drug Dosing Estimated GFR (MDRD) Glucose (70-99) mg/dL Lactic Acid (0.4-2.0) mmol/L Calcium (8.5-10.1) mg/dL Corrected Calcium (8.5-10.1) mg/dL Phosphorus (2.6-4.7) mg/dL Magnesium (1.8-2.4) mg/dL Total Bilirubin (0.2-1.0) mg/dL AST (15-37) U/L ALT (14-59) U/L Alkaline Phosphatase (46-116) U/L Troponin I High Sens (<=51) ng/L C-Reactive Protein (<=0.9) mg/dL Total Protein (6.4-8.2) g/dL Albumin (3.4-5.0) g/dL Globulin Albumin/Globulin Ratio Procalcitonin 0.14 (0.1-0.50) ng/mL SARS CoV-2 RNA Rapid CHAP[place]O (NEGATIVE) Meds: Medications Generic Name Dose Route Start Last Admin Trade Name Freq PRN Reason Stop Dose Admin Sodium Chloride 10 ml 01/19/21 03:38 Sodium Chloride 0.9% 10 Ml Syringe FLUSH ASDIRECTED PRN Keep Vein Open Discontinued Medications Generic Name Dose Route Start Last Admin Trade Name [place] PRN Reason Stop Dose Admin Cefepime HCl 2 gm 01/19/21 04:12 01/19/21 04:20 Cefepime 2 Gm Vial IVPUSH 01/19/21 04:13 2 gm STAT ONE Administration Vancomycin HCl 1 gm/ Sodium 250 mls @ 250 mls/hr 01/19/21 04:13 01/19/21 04 :38 Chloride IV 01/19/21 05:12 250 mls/hr STAT ONE Administration Iopamidol 100 ml 01/19/21 05:14 01/19/21 05:21 Iopamidol 612 Mg/Ml 100 Ml Bottle IVPUSH 01/19/21 05:15 100 ml ONETIME ONE Administration - Radiology Interpretation Free Text/Narrative:: Chest x-ray shows possible L lower lobe infiltrate, which correlates with pat abhay's physical exam. CT brain without contrast obtained. No acute pathology. Significant age related changes noted. CTA chest obtained. No PE noted. Small pleural effusions and partial atelectasis in L lower lobe. No definitive consolidation. - Re-Assessments/Exams Free Text/Narrative Re-Assessment/Exam: Pt. was placed on O2 per mask. She is maintaining O2 sats in the mid 90s. Attempting to transition patient NC. Pt. was started on cefepime 2 gm IV and vancomycin 1 gm IV in ER. Will also start patient on Cipro per sepsis protocol. Lactic acid and procalcitonin were both within normal limits. Chest x-ray shows evidence of L lower lobe pneumonia. Pt. did become a bit more responsive, was localizing pain, attempting to communicate. Departure - Departure Time of Disposition: 06:00 Disposition: Admitted As Inpatient 67 Clinical Impression: Aspiration pneumonia, Hypoxia, Sepsis - Discharge Information Sepsis Event Note (ED) - Focused Exam Vital Signs: Vital Signs Temp Pulse Resp BP Pulse Ox 01/19/21 03:30 36.7 C 74 24 H 106/72 96 - Problem List Review Problem List Initiated/Reviewed/Updated: Yes - My Orders Last 24 Hours: My Active Orders 01/19/21 03:38 EKG Documentation Completion [RC] STAT Chest 1V Frontal [CR] Stat Sodium Chloride 0.9% [Saline Flush] 10 ml FLUSH ASDIRECTED PRN 01/19/21 03:39 UA RFX ALONZO AND CULT IF INDIC [URIN] Stat Blood Culture x2 Reflex Set [OM.PC] Stat Peripheral IV Insertion Adult [OM.PC] Routine 01/19/21 03:46 Head wo Cont [CT] Stat 01/19/21 03:54 CTA Chest W WO Contrast [Ang Chest] [CT] Stat 01/19/21 04:15 COMPREHENSIVE METABOLIC PN,CMP [CHEM] Stat CRP [C-REACTIVE PROTEIN] [CHEM] Stat CULTURE BLOOD [BC] Stat MAGNESIUM [CHEM] Stat PHOSPHORUS [CHEM] Stat PRO B-TYPE NATRIUR PEPT,BNPPRO [CHEM] Stat TROPONIN I HIGH SENSITIVITY [CHEM] Stat 01/19/21 04:21 CULTURE BLOOD [BC] Stat - Assessment/Plan Last 24 Hours: My Active Orders 01/19/21 03:38 EKG Documentation Completion [RC] STAT Chest 1V Frontal [CR] Stat Sodium Chloride 0.9% [Saline Flush] 10 ml FLUSH ASDIRECTED PRN 01/19/21 03:39 UA RFX ALONZO AND CULT IF INDIC [URIN] Stat Blood Culture x2 Reflex Set [OM.PC] Stat Peripheral IV Insertion Adult [OM.PC] Routine 01/19/21 03:46 Head wo Cont [CT] Stat 01/19/21 03:54 CTA Chest W WO Contrast [Ang Chest] [CT] Stat 01/19/21 04:15 COMPREHENSIVE METABOLIC PN,CMP [CHEM] Stat CRP [C-REACTIVE PROTEIN] [CHEM] Stat CULTURE BLOOD [BC] Stat MAGNESIUM [CHEM] Stat PHOSPHORUS [CHEM] Stat PRO B-TYPE NATRIUR PEPT,BNPPRO [CHEM] Stat TROPONIN I HIGH SENSITIVITY [CHEM] Stat 01/19/21 04:21 CULTURE BLOOD [BC] Stat Plan: Pt. will be admitted acutely. She is a patient of Dr. Pal, who happens to be rehabilitation inspector this AM. Pt. is a code 2, DNR/DNI.
[2021-01-19] MEDS ORDERED: Cefepime 2 GM Vial IVPUSH ONE (04:12)
[2021-01-19 04:40] LABS: PCO2 VENOUS 55 mmHG (41-51); PO2 VENOUS 42 mmHG
[2021-01-19 04:41] LABS: BASE EXCESS VENOUS -1 mmol/L ((-2)-3); BICARBONATE,VENOUS 26 mmol/L (22-29); O2 SATURATION VENOUS 70 %; PH,VENOUS 7.28 pH (7.33-7.43)
[2021-01-19 04:54] LABS: CHLORIDE,CL 109 mmol/L (98-107); SODIUM,NA 142 mmol/L (136-145)
[2021-01-19 04:58] LABS: ANION GAP 8.9 mmol/L (5-15)
[2021-01-19] MEDS ORDERED: Iopamidol 612 MG/ML 100 ML Bottle IVPUSH ONE (05:14)
[2021-01-19] MEDS ORDERED: Ciprofloxacin in D5W 400 MG in Premix Bag 1 BAG IV ONE ×2 (06:01)
[2021-01-19] MEDS ORDERED: Acetaminophen/HYDROcodone 325-5 MG Tab PO PRN (07:52)
[2021-01-19] MEDS ORDERED: Acetaminophen 325 MG Tab PO PRN (07:52)
[2021-01-19] MEDS ORDERED: Cyclobenzaprine 10 MG Tab PO PRN (08:15)
[2021-01-19] MEDS ORDERED: LORazepam 0.5 MG Tab PO PRN (08:15)
--- NOTE | 2021-01-19 08:15 | PCM.HP.2 ---
H&P History of Present Illness - General Date of Service: 01/19/21 Admit Problem/Dx: Admission Diagnosis/Problem Admission Diagnosis/Problem Hypoxia - History of Present Illness Initial Comments - Free Text/Narative: Elizabeth is an 85-year-old female with a past medical history of COPD, HFrEF, hypertension, cognitive dysfunction, osteoporosis, chronic low back pain with chronic opioid use who presented to the hospital early this morning. She was discharged from [place] to [facility] on 01/18/2021 after being admitted on 01/12/2021 for a left hip fracture. She underwent fixation of the hip and did have a bit of a tenuous hospital course. She did have some significant swelling over the lower extremity as well as some severe pain. Her regular pain regimen have not controlled her pain and she was sent home with extra oxycodone to be taken as needed on top of her regimen. She also had some urinary retention was sent home with a Damian. Due to episodes of hypotension in the hospital her regular blood pressure medication was held. At the time of discharge she was restarted on her Lasix and sent on midodrine as well. Per nursing reports at the [facility] she had been well-appearing at her midnight check. By the time the nurse checked on her at 2 AM this morning she was minimally responsive and hypoxic with her oxygen saturations in the 70s. Blood pressure was reported at that time to be in the 60s systolic. She was placed on 2 L nasal cannula and transferred to the ER. Upon arrival to the ER she was mi nimally responsive and not answering questions. Vital signs with a blood pressure of 129/74, pulse 84, respiratory rate of 24, oxygen sats 82% on 4 L. She was actually placed up onto a nonrebreather. Ear pruritus top part of this may have been due to poor perfusion of the extremities leading to falsely lowered readings. Her white blood count was normal at 5.8. Hemoglobin was 7.7 which was stable from 01/17/2021. VBG with a pH of 7.28 and PCO2 55. Chemistry panel is grossly unremarkable. Lactic acid 1.0, CRP 8.2. COVID was negative. Chest x-ray did demonstrate a possible left lower lobe pneumonia. Per the ER provider CT of the head as well as CTA of the chest were negative. She was initiated on negative myosin, cefepime, ciprofloxacin for potential aspiration pneumonia in the setting of recent hospitalization. Blood cultures are pending. - Related Data Allergies/Adverse Reactions: Allergies Allergy/AdvReac Type Severity Reaction Status Date / Time Penicillins Allergy Itching Verified 01/19/21 05:30 Home Medications: Home Meds Cyclobenzaprine [Flexeril] 10 mg PO TID PRN 07/14/14 [History] Pantoprazole [ProTONIX] 40 mg PO DAILY 07/14/14 [History] Calcitonin ([place]) [Miacalcin Nasal [place]] 1 spray NS BEDTIME 06/15/18 [History] Cholecalciferol (Vitamin D3) [D3-2000] 4,000 unit PO Q48H 06/15/18 [History] atorvaSTATin [Lipitor] 10 mg PO BEDTIME 06/15/18 [History] estradioL [Estrace 0.01% Vaginal Crm] 0.5 applicful VAG BEDTIME PRN 06/15/18 [History] polyethylene glycoL 3350 [MiraLAX] 34 gm PO DAILY 06/15/18 [History] LORazepam [Ativan] 0.5 mg PO TID PRN 09/21/19 [History] Calcium Carbonate/Vitamin D3 [Calcium Carbonate/Vitamin D 600 MG-200 Unit] 1 tab PO BID 09/22/19 [History] Budesonide [Pulmicort] 0.5 mg NEB BIDRT #60 neb 09/23/19 [Rx] Acetaminophen 325 mg PO BID 11/22/19 [History] Acetaminophen [Tylenol] 650 mg PO Q6H PRN 11/22/19 [History] Albuterol/Ipratropium [DuoNeb 3.0-0.5 MG/3 ML] 3 ml NEB QID 11/22/19 [History] Hydrocodone/Acetaminophen [HYDROcodone-Acetaminophen 5-325 MG] 1 tab PO TID 11/22/19 [History] Magnesium Oxide 400 mg PO DAILY 11/22/19 [History] Sertraline [Zoloft] 50 mg PO DAILY #30 tablet 11/26/19 [Rx] Docusate Sodium [Colace] 100 mg PO BID 11/30/19 [History] Alendronate Sodium [Fosamax] 70 mg PO MO@0700 12/01/19 [History] Non-Formulary Medication [NF Drug] 2 scoop PO Q48H PRN 12/01/19 [History] Levothyroxine 75 mcg PO ACBREAKFAST 01/12/21 [History] Lubiprostone [Amitiza] 24 mcg PO DAILY 01/12/21 [History] Melatonin 5 mg PO BEDTIME 01/12/21 [History] Naproxen 500 mg PO DAILY 01/12/21 [History] Spironolactone [Aldactone] 25 mg PO DAILY 01/12/21 [History] carvediloL [Coreg] 3.125 mg PO DAILY 01/12/21 [History] metOLazone [Metolazone] 2.5 mg PO FR 01/12/21 [History] Past Medical History HEENT History: Reports: Cataract Cardiovascular History: Reports: Afib, Aneurysm, Heart Failure, High Cholesterol, Hypertension, SOB on Exertion, Other (See Below) Other Cardiovascular History: mitral valve disorder. Abdominal aortic aneurysm without rupture Respiratory History: Reports: COPD, SOB, Other (See Below) Other Respiratory History: panlobular emphysema. 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 vaginal itching Musculoskeletal History: Reports: Back Pain, Chronic, Osteoporosis Other Musculoskeletal History: scoliosis deformity of spine. closed fx of rib. closed fx of left shoulder. lumbar facet arthropathy Psychiatric History: Reports: Depression Endocrine/Metabolic History: Reports: Osteoporosis, Vitamin D Deficiency, Other (See Below) Other Endocrine/Metabolic History: abnormal thyroid blood test Dermatologic History: Reports: Other (See Below) Other Dermatologic History: atopic dermatitis. ulcer of elbow - Infectious Disease History Infectious Disease History: Reports: Chicken Pox, Measles, Mumps, Rubella - Past Surgical History HEENT Surgical History: Reports: Cataract Surgery, Tonsillectomy Female Surgical History: Reports: Cystoscopy, Tubal Ligation Musculoskeletal Surgical History: Reports: Other (See Below) Other Musculoskeletal Surgeries/Procedures:: lumbar radiculopathy. degeneration of lumbar or lumbosacral intervertebral disc Social & Family History - Family History Family Medical History: No Pertinent Family History - Tobacco Use Tobacco Use Status *Q: Unknown Ever Used Tobacco - Caffeine Use Caffeine Use: Reports: Coffee Caffeine Use Comment: coffee daily and occasional soda H&P Review of Systems - Review of Systems: Review Of Systems: See Below (patient minimally responsive to verbal cues at this time) Exam - Exam Exam: See Below - Vital Signs Vital Signs: Last Vital Signs Temp 98.1 F 01/19/21 03:30 Pulse 109 H 01/19/21 06:05 Resp 24 H 01/19/21 06:05 BP 102/62 01/19/21 06:05 Pulse Ox 98 01/19/21 06:05 - Exam Quality Assessment: Supplemental Oxygen (non-rebreather weaned to 8L while provider in the room with sats maintaining in the mid-90s) General: Lethargic, Obtunded HEENT: Mucosa Moist & [place] Neck: Supple, Trachea Midline Lungs: Rhonchi (LLL and LML) Cardiovascular: Regular Rate, Regular Rhythm GI/Abdominal Exam: Soft, Non-Tender (Female) Exam: Other (bruising of the labia majora) Extremities: Pedal Edema (1+ to the knees bilaterally), Other (bandage in place over surgical site on the left leg) Skin: Other (central body is warm, digits are cool. no mottling. Significant bruising the the extremities. Bruising even noted on the labia) Neuro Extensive - Mental Status: Withdraws to Pain, Other (minimall responsive to verbal cues) - Patient Data Lab Results Last 24 hrs: Laboratory Results - last 24 hr 01/19/21 01/19/21 01/19/21 Range/Units 04:00 04:15 04:15 WBC 5.8 (4.0-10.0) x10^3/uL RBC 2.36 L (4.00-5.50) x10^6/uL Hgb 7.7 L D (12.0-16.0) g/dL Hct 24.0 L (33.0-47.0) % MCV 101.7 H (78.0-93.0) fL MCH 32.6 H (26.0-32.0) pg MCHC 32.1 (32.0-36.0) g/dL RDW Coeff of [place] 15.3 H (10.0-15.0) % Plt Count 241 (130-400) x10^3/uL Neut % (Auto) 66.0 (50.0-80.0) % Lymph % (Auto) 18.1 L (25.0-50.0) % Stark % (Auto) 13.5 H (2.0-11.0) % Eos % (Auto) 2.1 (0.0-4.0) % Baso % (Auto) 0.3 (0.2-1.2) % PT 9.3 L (9.9-12.5) SEC INR 0.8 L (2.0-3.5) VBG pH (7.33-7.43) pH VBG pCO2 (41-51) mmHG VBG pO2 mmHG VBG HCO3 (22-29) mmol/L VBG Total CO2 (23-30) mmol/L VBG O2 Saturation % VBG Base Excess ((-2)-3) mmol/L Sodium (136-145) mmol/L Potassium (3.5-5.1) mmol/L Chloride (98-107) mmol/L Carbon Dioxide (21-32) mmol/L Anion Gap (5-15) mmol/L BUN (7-18) mg/dL Creatinine (0.55-1.02) mg/dL Est Cr Clr Drug Dosing Estimated GFR (MDRD) Glucose (70-99) mg/dL Lactic Acid (0.4-2.0) mmol/L Calcium (8.5-10.1) mg/dL Corrected Calcium (8.5-10.1) mg/dL Phosphorus (2.6-4.7) mg/dL Magnesium (1.8-2.4) mg/dL Total Bilirubin (0.2-1.0) mg/dL AST (15-37) U/L ALT (14-59) U/L Alkaline Phosphatase (46-116) U/L Troponin I High Sens (<=51) ng/L C-Reactive Protein (<=0.9) mg/dL NT-Pro-B Natriuret Pep (<=450) pg/mL Total Protein (6.4-8.2) g/dL Albumin (3.4-5.0) g/dL Globulin Albumin/Globulin Ratio Procalcitonin (0.1-0.50) ng/mL SARS CoV-2 RNA Rapid CHAPARRO Negative (NEGATIVE) 01/19/21 01/19/21 01/19/21 Range/Units 04:15 04:15 04:15 WBC (4.0-10.0) x10^3/uL RBC (4.00-5.50) x10^6/uL Hgb (12.0-16.0) g/dL Hct (33.0-47.0) % MCV (78.0-93.0) fL MCH (26.0-32.0) pg MCHC (32.0-36.0) g/dL RDW Coeff of [place] (10.0-15.0) % Plt Count (130-400) x10^3/uL Neut % (Auto) (50.0-80.0) % Lymph % (Auto) (25.0-50.0) % Stark % (Auto) (2.0-11.0) % Eos % (Auto) (0.0-4.0) % Baso % (Auto) (0.2-1.2) % PT (9.9-12.5) SEC INR (2.0-3.5) VBG pH 7.28 L* (7.33-7.43) pH VBG pCO2 55 H (41-51) mmHG VBG pO2 42 mmHG VBG HCO3 26 (22-29) mmol/L VBG Total CO2 27 (23-30) mmol/L VBG O2 Saturation 70 % VBG Base Excess -1 ((-2)-3) mmol/L Sodium 142 (136-145) mmol/L Potassium 3.9 (3.5-5.1) mmol/L Chloride 109 H (98-107) mmol/L Carbon Dioxide 28 (21-32) mmol/L Anion Gap 8.9 (5-15) mmol/L BUN 22 H D (7-18) mg/dL Creatinine 1.0 (0.55-1.02) mg/dL Est Cr Clr Drug Dosing TNP Estimated GFR (MDRD) 53 Glucose 158 H (70-99) mg/dL Lactic Acid 1.0 (0.4-2.0) mmol/L Calcium 7.9 L (8.5-10.1) mg/dL Corrected Calcium 9.5 (8.5-10.1) mg/dL Phosphorus 3.1 (2.6-4.7) mg/dL Magnesium 2.7 H (1.8-2.4) mg/dL Total Bilirubin 0.8 (0.2-1.0) mg/dL AST 25 (15-37) U/L ALT 13 L (14-59) U/L Alkaline Phosphatase 53 (46-116) U/L Troponin I High Sens 29 (<=51) ng/L C-Reactive Protein 8.2 H (<=0.9) mg/dL NT-Pro-B Natriuret Pep 52091 H (<=450) pg/mL Total Protein 6.4 (6.4-8.2) g/dL Albumin 2.0 L (3.4-5.0) g/dL Globulin 4.4 Albumin/Globulin Ratio 0.45 Procalcitonin (0.1-0.50) ng/mL SARS CoV-2 RNA Rapid CHAPARRO (NEGATIVE) 01/19/21 Range/Units 04:15 WBC (4.0-10.0) x10^3/uL RBC (4.00-5.50) x10^6/uL Hgb (12.0-16.0) g/dL Hct (33.0-47.0) % MCV (78.0-93.0) fL MCH (26.0-32.0) pg MCHC (32.0-36.0) g/dL RDW Coeff of [place] (10.0-15.0) % Plt Count (130-400) x10^3/uL Neut % (Auto) (50.0-80.0) % Lymph % (Auto) (25.0-50.0) % Stark % (Auto) (2.0-11.0) % Eos % (Auto) (0.0-4.0) % Baso % (Auto) (0.2-1.2) % PT (9.9-12.5) SEC INR (2.0-3.5) VBG pH (7.33-7.43) pH VBG pCO2 (41-51) mmHG VBG pO2 mmHG VBG HCO3 (22-29) mmol/L VBG Total CO2 (23-30) mmol/L VBG O2 Saturation % VBG Base Excess ((-2)-3) mmol/L Sodium (136-145) mmol/L Potassium (3.5-5.1) mmol/L Chloride (98-107) mmol/L Carbon Dioxide (21-32) mmol/L Anion Gap (5-15) mmol/L BUN (7-18) mg/dL Creatinine (0.55-1.02) mg/dL Est Cr Clr Drug Dosing Estimated GFR (MDRD) Glucose (70-99) mg/dL Lactic Acid (0.4-2.0) mmol/L Calcium (8.5-10.1) mg/dL Corrected Calcium (8.5-10.1) mg/dL Phosphorus (2.6-4.7) mg/dL Magnesium (1.8-2.4) mg/dL Total Bilirubin (0.2-1.0) mg/dL AST (15-37) U/L ALT (14-59) U/L Alkaline Phosphatase (46-116) U/L Troponin I High Sens (<=51) ng/L C-Reactive Protein (<=0.9) mg/dL NT-Pro-B Natriuret Pep (<=450) pg/mL Total Protein (6.4-8.2) g/dL Albumin (3.4-5.0) g/dL Globulin Albumin/Globulin Ratio Procalcitonin 0.14 (0.1-0.50) ng/mL SARS CoV-2 RNA Rapid CHAPARRO (NEGATIVE) Result Diagrams: 01/19/21 04:15 01/19/21 04:15 Sepsis Event Note - Evaluation Sepsis Screening Result: No Definite Risk - Focused Exam Vital Signs: Vital Signs Temp Pulse Resp BP Pulse Ox 01/19/21 06:05 109 H 24 H 102/62 98 01/19/21 05:30 110 H 24 H 116/57 L 87 L 01/19/21 05:00 125 H 24 H 119/60 90 L 01/19/21 04:20 84 24 H 129/74 82 L 01/19/21 03:30 98.1 F 74 24 H 106/72 96 - Problem List (1) Aspiration pneumonia SNOMED Code(s): 841511402 ICD Code: J69.0 - PNEUMONITIS DUE TO INHALATION OF FOOD AND VOMIT Status: Acute Current Visit: Yes (2) Hypoxia SNOMED Code(s): 460374203 ICD Code: R09.02 - HYPOXEMIA Status: Acute Current Visit: Yes (3) Pulmonary embolism SNOMED Code(s): 48565802 ICD Code: I26.99 - OTHER PULMONARY EMBOLISM WITHOUT ACUTE COR PULMONALE Status: Acute Current Visit: Yes Problem List Initiated/Reviewed/Updated: Yes Orders Last 24hrs: Active Orders 24 hr Category Date Time Status Patient Status [ADT] Routine ADT 01/19/21 07:52 Ordered Dietary Supplements [RC] BIDMEALS Care 01/19/21 07:57 Ordered Oxygen Therapy [RC] PRN Care 01/19/21 07:52 Ordered Pulse Oximetry [RC] CONTINUOUS Care 01/19/21 07:54 Ordered VTE/DVT Education [RC] PER UNIT ROUTINE Care 01/19/21 07:52 Ordered Vital Signs [RC] Q4H Care 01/19/21 07:52 Ordered Heart Healthy Diet [DIET] Diet 01/19/21 Lunch Ordered CTA Chest W WO Contrast [Ang Chest] [CT] Stat Exams 01/19/21 03:54 Ordered Chest 1V Frontal [CR] Stat Exams 01/19/21 03:38 Ordered Head wo Cont [CT] Stat Exams 01/19/21 03:46 Ordered CULTURE BLOOD [BC] Stat Lab 01/19/21 04:15 Received CULTURE BLOOD [BC] Stat Lab 01/19/21 04:21 Received CULTURE MRSA SURVEY [RM] Routine Lab 01/19/21 07:51 Ordered Acetaminophen [TylenoL] Med 01/19/21 07:52 Ordered 650 mg PO Q4H PRN Acetaminophen/HYDROcodone [[place] 325-5 MG] Med 01/19/21 07:52 Ordered 1 tab PO Q4H PRN Cefepime [Maxipime] 2 gm Med 01/19/21 12:00 Ordered Sodium Chloride 0.9% [Normal Saline] 100 ml IV Q8H Ciprofloxacin in D5W [Cipro in D5W 400 MG/200 ML] 400 Med 01/19/21 14:00 Ordered mg Premix Bag 1 bag IV Q8HR Enoxaparin [Lovenox] Med 01/19/21 08:00 Ordered 40 mg SUBCUT DAILY Pharmacy to Dose - Vancomycin Med 01/19/21 08:00 Ordered 1 dose .XX ASDIRECTED Sodium Chloride 0.9% [Saline Flush] Med 01/19/21 03:38 Active 10 ml FLUSH ASDIRECTED PRN Blood Culture x2 Reflex Set [OM.PC] Stat Oth 01/19/21 03:39 Ordered Peripheral IV Insertion Adult [OM.PC] Routine Oth 01/19/21 03:39 Ordered Resuscitation Status Routine Resus Stat 01/19/21 07:52 Ordered Medication Orders Acetaminophen (Acetaminophen 325 Mg Tab) 650 mg PO Q4H PRN PRN Reason: Pain (Mild 1-3)/fever Hydrocodone Bitart/Acetaminophen (Acetaminophen/Hydrocodone 325-5 Mg Tab) 1 tab PO Q4H PRN PRN Reason: Pain (moderate 4-6) Enoxaparin Sodium (Enoxaparin 40 Mg/0.4 Ml Syringe) 40 mg SUBCUT DAILY [facility] Cefepime HCl 2 gm/ Sodium (Chloride) 100 mls @ 25 mls/hr IV Q8H RAYMOND Stop: 01/26/21 12:01 Ciprofloxacin/Dextrose 400 mg/ (Premix) 200 mls @ 200 mls/hr IV Q8HR RAYMOND Stop: 01/26/21 14:01 Sodium Chloride (Sodium Chloride 0.9% 10 Ml Syringe) 10 ml FLUSH ASDIRECTED PRN PRN Reason: Keep Vein Open Vancomycin HCl (Pharmacy To Dose - Vancomycin) 1 dose .XX ASDIRECTED RAYMOND Stop: 01/26/21 08:01 Assessment/Plan Comment:: Initial picture looked like the patient may have had a aspiration pneumonia but the ER provider just received a call and related this to me that the radiologist suspects that there is a subsegmental pulmonary embolism. Acute Hypoxic Respiratory Failure Pulmonary embolism, provoked Suspected Aspiration Pneumonia Encephalopathy likely secondary to the above - Patient found to be hypoxic and minimally responsive on regular rounding at the snf this morning - Oxygen saturations poor in the 70s on room air - Chest x-ray demonstrating a likely left lower lobe pneumonia - In the setting of increased/change pain medications decreased functioning at this time suspicion for aspiration pneumonia Plan: - Continue vancomycin (pharmacy to dose), cefepime 2 g every 8 hours, Cipro 400 mg every 8 hours for coverage - Continuous pulse oximetry - Okay to wean O2 to maintain oxygen saturations between 90-96% - Daily CBC - Once patient is more coherent we will likely get her started on incentive spirometry - Increased Lovenox from 40 daily to 80 mg twice a day - Speech therapy consult for swallow eval Status post left hip surgery - Patient discharged on oxycodone 5 mg daily. Concern that this change in her pain medication may have been leading to worsening mental status leading to the above Plan: - At this time we will order up her home pain medication for when she is more alert/coherent ([place]/Flexeril) - While patient is less alert and unable to take oral pain medications I will order up Dilaudid 1 g every 4 hours IV for pain control - We will plan to get physical therapy on board once patient is able to participate - Will plan to get OT on board as well - We'll continue Lovenox 40 daily as planned postoperatively Chronic: - Hypertension/HFrEF: holding lasix at this time, continue midodrine - Osteoporosis: Holding Fosamax while she is in the hospital - HLD: Continue home Lipitor - Chronic pain: See above - Hypothyroidism: Continue home Synthroid - COPD: Continue home Pulmicort, DuoNeb as needed - Anxiety/depression: Continue home Zoloft and Ativan when necessary - GERD: continue home protonix Diet: Heart healthy DVT: Lovenox as above for postoperative status/PE Code: DNR/DNI Disposition: Guarded. We'll admit inpatient for monitoring and treatment of the acute hypoxic respiratory failure, PE, and suspected aspiration pneumonia. Patient will be placed on antibiotic therapy and supported with oxygen. Lovenox increased to 80 mg twice a day for weight-based dosing for treatment of the PE. Once she is doing better we will plan to get her started on therapies in anticipation of returning to the snf. Patient originally lived at the [facility] and the snf stay was supposed to be short- term for rehab after her hip surgery.
--- NOTE | 2021-01-19 08:15 | CT ---
[id number] CT/CT Head WO IV EXAM: CT Head WO IV CLINICAL DATA: UNRESPONSIVE COMPARISON STUDY: None FINDINGS: No intracranial hemorrhage, extra-axial fluid collection, mass, or acute ischemia. No hydrocephalus. Bilateral symmetric parenchymal atrophy throughout the cerebral hemispheres. Periventricular and subcortical white matter hypodensity. Combination of findings is most consistent with sequela of chronic small vessel disease. Atherosclerotic plaque in the intracranial segments of the internal carotid arteries. Calvarium intact. Paranasal sinuses and mastoid air cells are clear. IMPRESSION: No acute intracranial findings. Santi Ness MD 01/19/21 0814 Thank you for allowing us to participate in the care of your patient.
--- NOTE | 2021-01-19 08:16 | CR ---
[id number] RAD/RAD Chest Portable EXAM: RAD Chest Portable INDICATION: RESPIRATORY FAILURE COMPARISON: Multiple priors, most recent from December 15, 2019. DISCUSSION/IMPRESSION: Blunting of the left costophrenic sulcus consistent with effusion and atelectasis. COPD. Cardiomediastinal silhouette again demonstrates cardiomegaly with tortuous thoracic aorta. Findings are similar to the prior examination given differences in patient positioning. Santi Ness MD 01/19/21 0816 Thank you for allowing us to participate in the care of your patient.
--- NOTE | 2021-01-19 08:22 | CT ---
[id number] CT/CTA Chest EXAM: CT ANGIOGRAM CHEST INDICATION: ACUTE HYPOXIA, RECENT HIP FX/SURGERY COMPARISON: None. DISCUSSION: There is a least one pulmonary arterial filling defect within a right upper lobe segmental branch consistent with age indeterminate pulmonary embolism. No large central or lobar pulmonary embolism. Atelectasis at the lung bases bilaterally. Small bilateral pleural effusions. No confluent airspace consolidation is identified.No pleural or pericardial effusion. The heart is enlarged. Atherosclerotic calcifications of the aorta and its branches. Coronary artery disease. No mediastinal, hilar or axillary lymphadenopathy. Multiple chronic appearing compression deformities especially at T3, T4 and T7. Findings result in exaggerated kyphosis. IMPRESSION: 1. Right upper lobe segmental pulmonary embolism. 2. Small pleural effusions with atelectasis at the lung bases bilaterally. No confluent airspace consolidation. Findings discussed with ordering provider at 0819 01/19/2021. Glenn Lei DO 01/19/21 0821 Thank you for allowing us to participate in the care of your patient.
[2021-01-19] MEDS: Enoxaparin 80 MG/0.8 ML Syringe SUBCUT SCH ×2 (08:54→20:22)
[2021-01-19] MEDS: Budesonide 0.5 MG/2 ML Neb Susp NEB SCH ×2 (09:14→20:24)
[2021-01-19] MEDS: Docusate Sodium 100 MG Cap PO SCH ×2 (09:27→20:25)
[2021-01-19] MEDS: Levothyroxine 75 MCG Tab PO SCH (09:27)
[2021-01-19] MEDS ORDERED: Pantoprazole 40 MG Tab.CR PO SCH (09:30)
[2021-01-19] MEDS: Magnesium Oxide 400 MG Tab PO SCH (09:38)
[2021-01-19] MEDS ORDERED: HYDROmorphone 1 MG/ML Syringe IVPUSH PRN (09:54)
[2021-01-19] MEDS ORDERED: Albuterol/Ipratropium 3.0-0.5 MG/3 ML Neb Soln NEB STA (10:05)
[2021-01-19] MEDS: Polyethylene Glycol 3350 Powder 17 GM Packet PO SCH (10:37)
[2021-01-19] MEDS: LUBIPROSTONE 24 MCG PO SCH ×2 (11:33→17:45)
[2021-01-19] MEDS: Albuterol/Ipratropium 3.0-0.5 MG/3 ML Neb Soln NEB SCH ×3 (12:29→20:24)
[2021-01-19] MEDS: Acetaminophen/HYDROcodone 325-5 MG Tab PO SCH ×2 (12:35→20:25)
[2021-01-19] MEDS: Ciprofloxacin in D5W 400 MG in Premix Bag 1 BAG IV SCH ×4 (13:24→21:12)
[2021-01-19] MEDS: Sodium Chloride 0.9% 10 ML Syringe FLUSH PRN ×2 (15:29→18:03)
[2021-01-19] MEDS ORDERED: Cefepime 2 GM in Sodium Chloride 0.9% 100 ML IV SCH ×2 (16:00→17:00)
[2021-01-19] MEDS ORDERED: Labetalol 20 MG/4 ML Syringe IVPUSH STA (17:46)
[2021-01-19] MEDS ORDERED: Enoxaparin 40 MG/0.4 ML Syringe SUBCUT SCH (20:00)
[2021-01-19] MEDS: atorvaSTATin 10 MG Tab PO SCH (20:25)
[2021-01-19] MEDS: Melatonin 3 MG Tab PO SCH (20:25)
[2021-01-20] MEDS ORDERED: Sodium Chloride 0.9% 250 ML IV SCH (00:45)
[2021-01-20] MEDS: Ciprofloxacin in D5W 400 MG in Premix Bag 1 BAG IV SCH ×8 (04:26→22:00)
[2021-01-20] MEDS: Cefepime 2 GM in Sodium Chloride 0.9% 100 ML IV SCH ×2 (05:42→16:17)
[2021-01-20] MEDS: Levothyroxine 75 MCG Tab PO SCH (06:42)
[2021-01-20] MEDS: Budesonide 0.5 MG/2 ML Neb Susp NEB SCH ×2 (06:45→20:02)
[2021-01-20] MEDS: Albuterol/Ipratropium 3.0-0.5 MG/3 ML Neb Soln NEB SCH ×4 (06:46→20:02)
[2021-01-20 07:13] LABS: ANION GAP 13.3 mmol/L (5-15)
[2021-01-20] MEDS: Enoxaparin 80 MG/0.8 ML Syringe SUBCUT SCH ×2 (07:53→20:03)
[2021-01-20] MEDS: Pantoprazole 40 MG Vial IVPUSH SCH (07:53)
[2021-01-20] MEDS: Sodium Chloride 0.9% 10 ML Syringe FLUSH PRN ×2 (07:53→16:17)
[2021-01-20] MEDS: Docusate Sodium 100 MG Cap PO SCH ×2 (08:08→20:04)
[2021-01-20] MEDS: Magnesium Oxide 400 MG Tab PO SCH (08:37)
[2021-01-20] MEDS: Acetaminophen/HYDROcodone 325-5 MG Tab PO SCH ×3 (08:38→20:04)
[2021-01-20] MEDS: Polyethylene Glycol 3350 Powder 17 GM Packet PO SCH (08:38)
[2021-01-20] MEDS: Sertraline 50 MG Tab PO SCH (08:39)
--- NOTE | 2021-01-20 09:31 | PCM.PN ---
- General Info Date of Service: 01/20/21 Admission Dx/Problem (Free Text): Admission Diagnosis/Problem Admission Diagnosis/Problem Hypoxia Subjective Update: Elizabeth is an 85-year-old female with a past medical history of COPD, HFrEF, hypertension, cognitive dysfunction, osteoporosis, chronic low back pain with chronic opioid use who presented to the hospital early on the morning of 01/19/21. She was discharged from [place] to [facility] on 01/18/2021 after being admitted on 01/12/2021 for a left hip fracture. She underwent fixation of the hip and did have a bit of a tenuous hospital course. Per nursing reports at the [facility] she had been well-appearing at her midnight check. Two hours later minimally responsive and hypoxic with her oxygen saturations in the 70s, SBP in the 60s. Placed on O2 and transferred to the ER. Labs were unremarkable. CXR with possible LLL pneumonia. CTA with right subsegmental PE. She was placed on weight-based lovenox dosing for the PE and antiboitics to cover for aspiration. Overnight she has woken up. Tired appearing this morning but will converse, albeit not to her normal level of communication yet. Vitals relatively stable. Weaned to 1L O2 per NC. Labs unremarkable. - Review of Systems General: Reports: Weakness, Fatigue HEENT: Reports: No Symptoms Pulmonary: Reports: Shortness of Breath Cardiovascular: Reports: No Symptoms Gastrointestinal: Reports: No Symptoms Genitourinary: Reports: No Symptoms Musculoskeletal: Reports: No Symptoms Skin: Reports: No Symptoms Neurological: Reports: No Symptoms Psychiatric: Reports: No Symptoms - Patient Data Vitals - Most Recent: Last Vital Signs Temp 98.5 F 01/20/21 03:00 Pulse 149 H 01/20/21 06:00 Resp 34 H 01/20/21 05:32 BP 93/58 L 01/20/21 06:00 Pulse Ox 91 L 01/20/21 06:00 Weight - Most Recent: 159 lb 14.4 oz I&O - Last 24 Hours: Intake & Output 01/19/21 01/20/21 01/20/21 22:59 06:59 14:59 Intake Total 250 520 120 Output Total 0 500 Balance 250 20 120 Lab Results Last 24 Hours: Laboratory Results - last 24 hr 01/20/21 01/20/21 Range/Units 06:30 06:30 WBC 8.1 (4.0-10.0) x10^3/uL RBC 2.35 L (4.00-5.50) x10^6/uL Hgb 7.5 L (12.0-16.0) g/dL Hct 23.8 L (33.0-47.0) % MCV 101.3 H (78.0-93.0) fL MCH 31.9 (26.0-32.0) pg MCHC 31.5 L (32.0-36.0) g/dL RDW Coeff of [place] 15.0 (10.0-15.0) % Plt Count 306 (130-400) x10^3/uL Neut % (Auto) 77.2 (50.0-80.0) % Lymph % (Auto) 9.6 L (25.0-50.0) % [place] % (Auto) 12.5 H (2.0-11.0) % Eos % (Auto) 0.6 (0.0-4.0) % Baso % (Auto) 0.1 L (0.2-1.2) % Sodium 143 (136-145) mmol/L Potassium 4.3 (3.5-5.1) mmol/L Chloride 110 H (98-107) mmol/L Carbon Dioxide 24 (21-32) mmol/L Anion Gap 13.3 (5-15) mmol/L BUN 21 H (7-18) mg/dL Creatinine 1.0 (0.55-1.02) mg/dL Est Cr Clr Drug Dosing 37.68 mL/min Estimated GFR (MDRD) 53 Glucose 145 H (70-99) mg/dL Calcium 8.6 (8.5-10.1) mg/dL Ferdinand Results Last 24 Hours: Microbiology 01/19/21 07:24 MRSA Surveillance Culture - Final Nasal, Unspecified NO MRSA ISOLATED 01/19/21 04:21 Aerobic Blood Culture - Preliminary Blood - Venous - Lab Draw NO GROWTH AFTER 1 DAY Anaerobic Blood Culture - Preliminary NO GROWTH AFTER 1 DAY 01/19/21 04:15 Aerobic Blood Culture - Preliminary Blood - Venous Gram Positive Cocci Anaerobic Blood Culture - Preliminary NO GROWTH AFTER 1 DAY Med Orders - Current: Current Medications Acetaminophen (Acetaminophen 325 Mg Tab) 650 mg PO Q4H PRN PRN Reason: Pain (Mild 1-3)/fever Hydrocodone Bitart/Acetaminophen (Acetaminophen/Hydrocodone 325-5 Mg Tab) 1 tab PO Q4H PRN PRN Reason: Pain (moderate 4-6) Hydrocodone Bitart/Acetaminophen (Acetaminophen/Hydrocodone 325-5 Mg Tab) 1 tab PO TID [facility] Last Admin: 01/20/21 08:38 Dose: 1 tab Documented by: Albuterol/Ipratropium (Albuterol/Ipratropium 3.0-0.5 Mg/3 Ml Neb Soln) 3 ml NEB QIDRT [facility] Last Admin: 01/20/21 06:46 Dose: 3 ml Documented by: Atorvastatin Calcium (Atorvastatin 10 Mg Tab) 10 mg PO BEDTIME [facility] Last Admin: 01/19/21 20:25 Dose: Not Given Documented by: Budesonide (Budesonide 0.5 Mg/2 Ml Neb Susp) 0.5 mg NEB BIDRT [facility] Last Admin: 01/20/21 06:45 Dose: 0.5 mg Documented by: Cyclobenzaprine HCl (Cyclobenzaprine 10 Mg Tab) 10 mg PO TID PRN PRN Reason: Muscle Spasm - Painful Docusate Sodium (Docusate Sodium 100 Mg Cap) 100 mg PO BID [facility] Last Admin: 01/20/21 08:08 Dose: Not Given Documented by: Enoxaparin Sodium (Enoxaparin 80 Mg/0.8 Ml Syringe) 80 mg SUBCUT BID [facility] Last Admin: 01/20/21 07:53 Dose: 80 mg Documented by: Hydromorphone HCl (Hydromorphone 1 Mg/Ml Syringe) 1 mg IVPUSH Q4H PRN PRN Reason: Pain Ciprofloxacin/Dextrose 400 mg/ (Premix) 200 mls @ 200 mls/hr IV Q8H [facility] Last Admin: 01/20/21 05:41 Dose: Not Given Documented by: Cefepime HCl 2 gm/ Sodium (Chloride) 100 mls @ 25 mls/hr IV Q12H [facility] Last Admin: 01/20/21 05:42 Dose: 25 mls/hr Documented by: Vancomycin HCl 1 gm/ Sodium (Chloride) 250 mls @ 250 mls/hr IV DAILY@0700 [facility] Levothyroxine Sodium (Levothyroxine 75 Mcg Tab) 75 mcg PO ACBREAKFAST [facility] Last Admin: 01/20/21 06:42 Dose: 75 mcg Documented by: Lorazepam (Lorazepam 0.5 Mg Tab) 0.5 mg PO TID PRN PRN Reason: Anxiety Magnesium Oxide (Magnesium Oxide 400 Mg Tab) 400 mg PO DAILY [facility] Last Admin: 01/20/21 08:37 Dose: 400 mg Documented by: Melatonin (Melatonin 3 Mg Tab) 6 mg PO BEDTIME [facility] Last Admin: 01/19/21 20:25 Dose: Not Given Documented by: Metolazone (Metolazone 2.5 Mg Tab) 2.5 mg PO Fr@0800 [facility] Lubiprostone 24 Mcg (CapOwn Med) 24 mcg PO BIDMEALS [facility] Last Admin: 01/19/21 17:45 Dose: Not Given Documented by: Pantoprazole Sodium (Pantoprazole 40 Mg Vial) 40 mg IVPUSH DAILY [facility] Last Admin: 01/20/21 07:53 Dose: 40 mg Documented by: Polyethylene Glycol (Polyethylene Glycol 3350 Powder 17 Gm Packet) 17 gm PO DAILY [facility] Last Admin: 01/20/21 08:38 Dose: Not Given Documented by: Sertraline HCl (Sertraline 50 Mg Tab) 50 mg PO DAILY [facility] Last Admin: 01/20/21 08:39 Dose: 50 mg Documented by: Sodium Chloride (Sodium Chloride 0.9% 10 Ml Syringe) 10 ml FLUSH ASDIRECTED PRN PRN Reason: Keep Vein Open Last Admin: 01/20/21 07:53 Dose: 10 ml Documented by: Vancomycin HCl (Pharmacy To Dose - Vancomycin) 1 dose .XX ASDIRECTED [facility] Stop: 01/26/21 08:01 Discontinued Medications Albuterol/Ipratropium (Albuterol/Ipratropium 3.0-0.5 Mg/3 Ml Neb Soln) 3 ml NEB ONETIME STA Stop: 01/19/21 10:06 Last Admin: 01/19/21 10:12 Dose: 3 ml Documented by: Cefepime HCl (Cefepime 2 Gm Vial) 2 gm IVPUSH STAT ONE Stop: 01/19/21 04:13 Last Admin: 01/19/21 04:20 Dose: 2 gm Documented by: Enoxaparin Sodium (Enoxaparin 40 Mg/0.4 Ml Syringe) 40 mg SUBCUT DAILY@2000 [facility] Vancomycin HCl 1 gm/ Sodium (Chloride) 250 mls @ 250 mls/hr IV STAT ONE Stop: 01/19/21 05:12 Last Admin: 01/19/21 04:38 Dose: 250 mls/hr Documented by: Ciprofloxacin/Dextrose 400 mg/ (Premix) 200 mls @ 200 mls/hr IV STAT ONE Stop: 01/19/21 07:00 Last Admin: 01/19/21 06:55 Dose: 200 mls/hr Documented by: Cefepime HCl 2 gm/ Sodium (Chloride) 100 mls @ 25 mls/hr IV Q12H [facility] Last Admin: 01/19/21 15:29 Dose: 25 mls/hr Documented by: Vancomycin HCl 1 gm/ Sodium (Chloride) 250 mls @ 250 mls/hr IV Q24H [facility] Last Admin: 01/20/21 03:11 Dose: 250 mls/hr Documented by: Sodium Chloride (Normal Saline) 250 mls @ 100 mls/hr IV ASDIRECTED [facility] Stop: 01/20/21 03:14 Last Admin: 01/20/21 02:36 Dose: 100 mls/hr Documented by: Iopamidol (Iopamidol 612 Mg/Ml 100 Ml Bottle) 100 ml IVPUSH ONETIME ONE Stop: 01/19/21 05:15 Last Admin: 01/19/21 05:21 Dose: 100 ml Documented by: Labetalol HCl (Labetalol 20 Mg/4 Ml Syringe) 10 mg IVPUSH NOW STA; Protocol Stop: 01/19/21 17:47 Last Admin: 01/19/21 18:03 Dose: 10 mg Documented by: Pantoprazole Sodium (Pantoprazole 40 Mg Tab.Cr) 40 mg PO DAILY [facility] Last Admin: 01/19/21 09:28 Dose: Not Given Documented by: - Exam Quality Assessment: Supplemental Oxygen (1L per NC) General: Alert, Oriented HEENT: Pupils Equal, EOMI, Mucous Membr. Moist/[place] Neck: Supple Lungs: Rales (bilateral bases, L>R), Other (Increased respiratory effort, not in distress though) Cardiovascular: Regular Rhythm, Tachycardia GI/Abdominal Exam: Normal Bowel Sounds, Soft, Non-Tender Back Exam: Normal Inspection Extremities: Pedal Edema (1+ to the shins) Skin: Warm, Dry, Other (bruising throughout the bilateral UE) Wound/Incisions: Healing Well Neurological: No New Focal Deficit Psy/Mental Status: Alert, Normal Affect, Normal Mood - Patient Data Lab Results Last 24 hrs: Laboratory Results - last 24 hr 01/20/21 01/20/21 Range/Units 06:30 06:30 WBC 8.1 (4.0-10.0) x10^3/uL RBC 2.35 L (4.00-5.50) x10^6/uL Hgb 7.5 L (12.0-16.0) g/dL Hct 23.8 L (33.0-47.0) % MCV 101.3 H (78.0-93.0) fL MCH 31.9 (26.0-32.0) pg MCHC 31.5 L (32.0-36.0) g/dL RDW Coeff of [place] 15.0 (10.0-15.0) % Plt Count 306 (130-400) x10^3/uL Neut % (Auto) 77.2 (50.0-80.0) % Lymph % (Auto) 9.6 L (25.0-50.0) % [place] % (Auto) 12.5 H (2.0-11.0) % Eos % (Auto) 0.6 (0.0-4.0) % Baso % (Auto) 0.1 L (0.2-1.2) % Sodium 143 (136-145) mmol/L Potassium 4.3 (3.5-5.1) mmol/L Chloride 110 H (98-107) mmol/L Carbon Dioxide 24 (21-32) mmol/L Anion Gap 13.3 (5-15) mmol/L BUN 21 H (7-18) mg/dL Creatinine 1.0 (0.55-1.02) mg/dL Est Cr Clr Drug Dosing 37.68 mL/min Estimated GFR (MDRD) 53 Glucose 145 H (70-99) mg/dL Calcium 8.6 (8.5-10.1) mg/dL Result Diagrams: 01/20/21 06:30 01/20/21 06:30 Ferdinand Results Last 24 hrs: Microbiology 01/19/21 07:24 MRSA Surveillance Culture - Final Nasal, Unspecified NO MRSA ISOLATED 01/19/21 04:21 Aerobic Blood Culture - Preliminary Blood - Venous - Lab Draw NO GROWTH AFTER 1 DAY Anaerobic Blood Culture - Preliminary NO GROWTH AFTER 1 DAY 01/19/21 04:15 Aerobic Blood Culture - Preliminary Blood - Venous Gram Positive Cocci Anaerobic Blood Culture - Preliminary NO GROWTH AFTER 1 DAY Sepsis Event Note - Evaluation Sepsis Screening Result: Sepsis Risk - Focused Exam Vital Signs: Vital Signs Temp Pulse Resp BP BP Pulse Ox 01/20/21 06:00 149 H 93/58 L 91 L 01/20/21 05:32 120 H 34 H 91/61 91 L 01/20/21 03:00 98.5 F 117 H 35 H 95/50 L 93 L 01/19/21 23:36 114 H 01/19/21 23:32 138 H 38 H 100/49 L 94 L 01/19/21 23:12 94 L 01/19/21 23:10 98.6 F 116 H 30 H 100/52 L 94 L - Problem List & Annotations (1) Pulmonary embolism SNOMED Code(s): 47407833 Code(s): I26.99 - OTHER PULMONARY EMBOLISM WITHOUT ACUTE COR PULMONALE Status: Acute Current Visit: Yes (2) Aspiration pneumonia SNOMED Code(s): 929242788 Code(s): J69.0 - PNEUMONITIS DUE TO INHALATION OF FOOD AND VOMIT Status: Acute Current Visit: Yes (3) Hypoxia SNOMED Code(s): 511756882 Code(s): R09.02 - HYPOXEMIA Status: Acute Current Visit: Yes (4) Physical deconditioning SNOMED Code(s): 86094259787304 Code(s): R53.81 - OTHER MALAISE Status: Acute Current Visit: Yes - Problem List Review Problem List Initiated/Reviewed/Updated: Yes - My Orders Last 24 Hours: My Active Orders 01/19/21 09:00 Enoxaparin [Lovenox] 80 mg SUBCUT BID 01/19/21 09:15 Budesonide [Pulmicort] 0.5 mg NEB BIDRT Docusate Sodium [Colace] 100 mg PO BID Levothyroxine 75 mcg PO ACBREAKFAST 01/19/21 09:30 Magnesium Oxide 400 mg PO DAILY 01/19/21 09:54 HYDROmorphone [Dilaudid] 1 mg IVPUSH Q4H PRN 01/19/21 10:05 RT Aerosol Therapy [RC] .PRN 01/19/21 10:45 polyethylene glycoL 3350 [MiraLAX] 17 gm PO DAILY 01/19/21 11:00 Albuterol/Ipratropium [DuoNeb 3.0-0.5 MG/3 ML] 3 ml NEB QIDRT Lubiprostone 24 mcg PO BIDMEALS 01/19/21 Lunch Heart Healthy Diet [DIET] 01/19/21 12:00 Acetaminophen/HYDROcodone [Gary 325-5 MG] 1 tab PO TID 01/19/21 14:00 Ciprofloxacin in D5W [Cipro in D5W 400 MG/200 ML] 400 mg Premix Bag 1 bag IV Q8H 01/19/21 20:00 Melatonin 6 mg PO BEDTIME atorvaSTATin [Lipitor] 10 mg PO BEDTIME 01/20/21 05:00 Cefepime [Maxipime] 2 gm Sodium Chloride 0.9% [Normal Saline] 100 ml IV Q12H 01/20/21 08:00 Pantoprazole [ProTONIX IV] 40 mg IVPUSH DAILY Sertraline [Zoloft] 50 mg PO DAILY 01/21/21 07:00 Vancomycin 1 gm Sodium Chloride 0.9% [Normal Saline (AdvBag)] 250 ml IV DAILY@0700 01/21/21 08:00 metOLazone [Zaroxolyn] 2.5 mg PO Fr@0800 - Plan Plan:: Elizabeth is an 85yoF who is HD #2 for treatment of Acute hypoxic respiratory failure secondary to PE and likely aspiration pneumonia Acute Hypoxic Respiratory Failure Pulmonary embolism, provoked Suspected Aspiration Pneumonia Encephalopathy likely secondary to the above - improved - Chest x-ray demonstrating a likely left lower lobe pneumonia - CTA chest with right subsegmental PE Plan: - Continue vancomycin (pharmacy to dose), cefepime, Cipro - Continuous pulse oximetry - Okay to wean O2 to maintain oxygen saturations between 90-96% - Daily CBC - OK to start incentive spirometry - Lovenox 80 mg twice a day - Speech therapy consult for swallow evaluation Status post left hip surgery - Patient discharged on oxycodone 5 mg daily. Concern that this change in her pain medication may have been leading to worsening mental status leading to the above Plan: - Continue home Gary/flexeril now that alert, dilaudid for breakthrough - We will plan to get physical therapy on board once patient is able to participate - Will plan to get OT on board as well Tachycardia - Heart rates 100-140 - Sounds regular Plan: - EKG to assess rhythm this am Chronic: - Hypertension/HFrEF: holding lasix at this time, continue midodrine - Osteoporosis: Holding Fosamax while she is in the hospital - HLD: Continue home Lipitor - Chronic pain: See above, holding lubiprostone (if constipation will need to restart) - Hypothyroidism: Continue home Synthroid - COPD: Continue home Pulmicort, DuoNeb as needed - Anxiety/depression: Continue home Zoloft and Ativan when necessary - GERD: continue home protonix Diet: Heart healthy DVT: Lovenox as above for postoperative status/PE Code: DNR/DNI Disposition: Improved. Reassured that patient is more alert this morning and O2 demands improved. Will continue impatient management with IV antibiotics and therapeutic lovenox. Continue to monitor.
[2021-01-20] MEDS: LUBIPROSTONE 24 MCG PO SCH (11:00)
[2021-01-20] MEDS: atorvaSTATin 10 MG Tab PO SCH (20:03)
[2021-01-20] MEDS: Melatonin 3 MG Tab PO SCH (20:04)
[2021-01-20] MEDS ORDERED: Sodium Chloride 0.9% 500 ML IV ONE (21:16)
[2021-01-21] MEDS: Ciprofloxacin in D5W 400 MG in Premix Bag 1 BAG IV SCH ×6 (04:25→22:53)
[2021-01-21] MEDS: Levothyroxine 75 MCG Tab PO SCH (06:14)
[2021-01-21] MEDS: Cefepime 2 GM in Sodium Chloride 0.9% 100 ML IV SCH ×2 (06:40→19:31)
[2021-01-21 06:53] LABS: ANION GAP 11.3 mmol/L (5-15)
[2021-01-21] MEDS: Albuterol/Ipratropium 3.0-0.5 MG/3 ML Neb Soln NEB SCH ×4 (07:26→20:34)
[2021-01-21] MEDS: Budesonide 0.5 MG/2 ML Neb Susp NEB SCH ×2 (07:27→20:34)
[2021-01-21] MEDS ORDERED: Metolazone 2.5 MG Tab PO SCH (08:00)
[2021-01-21] MEDS: Sertraline 50 MG Tab PO SCH (08:36)
[2021-01-21] MEDS: Magnesium Oxide 400 MG Tab PO SCH (08:36)
[2021-01-21] MEDS: Pantoprazole 40 MG Vial IVPUSH SCH (08:36)
[2021-01-21] MEDS: Docusate Sodium 100 MG Cap PO SCH ×2 (08:36→20:33)
[2021-01-21] MEDS: Enoxaparin 80 MG/0.8 ML Syringe SUBCUT SCH ×2 (08:36→20:29)
[2021-01-21] MEDS: Acetaminophen/HYDROcodone 325-5 MG Tab PO SCH ×3 (08:37→20:30)
[2021-01-21] MEDS: Polyethylene Glycol 3350 Powder 17 GM Packet PO SCH (08:38)
--- NOTE | 2021-01-21 08:48 | PCM.PN ---
- General Info Date of Service: 01/21/21 Admission Dx/Problem (Free Text): Admission Diagnosis/Problem Admission Diagnosis/Problem Hypoxia Subjective Update: Elizabeth is an 85-year-old female with a past medical history of COPD, HFrEF, hypertension, cognitive dysfunction, osteoporosis, chronic low back pain with chronic opioid use who presented to the hospital early on the morning of 01/19/21. She was discharged from [employer] to [facility] on 01/18/2021 after being admitted on 01/12/2021 for a left hip fracture. She underwent fixation of the hip and did have a bit of a tenuous hospital course. Per nursing reports at the [facility] she had been well-appearing at her midnight check. Two hours later minimally responsive and hypoxic with her oxygen saturations in the 70s, SBP in the 60s. Placed on O2 and transferred to the ER. Labs were unremarkable. CXR with possible LLL pneumonia. CTA with right subsegmental PE. She was placed on weight-based lovenox dosing for the PE and antiboitics to cover for aspiration. Did have run of tachycardia overnight into the 150s. Bp was low. Given 500mL NS slow bolus. Improved slightly. Patient likely agitated. Vitals improved this morning. Oral intake remains below average. Much more cognisant this morning; back to baseline 'feisty' attitude with this provider and the rest of staff. Still tired appearing. Labs overall pretty good. Some level of dehydration. BldCx with only 1/4 for gram+ cocci. Functional Status: Reports: Pain Controlled - Review of Systems General: Reports: Weakness, Fatigue HEENT: Reports: No Symptoms, Other (trouble swallowing) Pulmonary: Reports: Cough Cardiovascular: Reports: No Symptoms Gastrointestinal: Reports: No Symptoms Genitourinary: Reports: Other (wants rosas pulled) Musculoskeletal: Reports: No Symptoms Skin: Reports: No Symptoms Neurological: Reports: No Symptoms Psychiatric: Reports: No Symptoms - Patient Data Vitals - Most Recent: Last Vital Signs Temp 98 F 01/21/21 06:00 Pulse 108 H 01/21/21 06:00 Resp 28 H 01/21/21 06:00 BP 96/39 L 01/21/21 06:00 Pulse Ox 100 01/21/21 07:28 Weight - Most Recent: 162 lb I&O - Last 24 Hours: Intake & Output 01/20/21 01/21/21 01/21/21 22:59 06:59 14:59 Intake Total 330 1300 Output Total 1000 600 Balance -670 700 Lab Results Last 24 Hours: Laboratory Results - last 24 hr 01/21/21 01/21/21 Range/Units 06:18 06:18 WBC 9.2 (4.0-10.0) x10^3/uL RBC 2.25 L (4.00-5.50) x10^6/uL Hgb 7.3 L (12.0-16.0) g/dL Hct 23.4 L (33.0-47.0) % MCV 104.0 H (78.0-93.0) fL MCH 32.4 H (26.0-32.0) pg MCHC 31.2 L (32.0-36.0) g/dL RDW Coeff of [place] 15.7 H (10.0-15.0) % Plt Count 348 (130-400) x10^3/uL Add Manual Diff Yes Neutrophils % (Manual) 82 H (50-80) % Band Neutrophils % 3 (0-6) % Lymphocytes % (Manual) 13 L (25-50) % Monocytes % (Manual) 2 (2-11) % Platelet Estimate Adequate Polychromasia 2+ moderate H Hypochromasia 2+ moderate H Anisocytosis 2+ moderate H Macrocytosis 3+ marked H Sodium 141 (136-145) mmol/L Potassium 4.3 (3.5-5.1) mmol/L Chloride 109 H (98-107) mmol/L Carbon Dioxide 25 (21-32) mmol/L Anion Gap 11.3 (5-15) mmol/L BUN 29 H (7-18) mg/dL Creatinine 1.2 H (0.55-1.02) mg/dL Est Cr Clr Drug Dosing 31.40 mL/min Estimated GFR (MDRD) 43 Glucose 141 H (70-99) mg/dL Calcium 8.3 L (8.5-10.1) mg/dL Ferdinand Results Last 24 Hours: Microbiology 01/19/21 04:21 Aerobic Blood Culture - Preliminary Blood - Venous - Lab Draw NO GROWTH AFTER 2 DAYS Anaerobic Blood Culture - Preliminary NO GROWTH AFTER 2 DAYS 01/19/21 04:15 Aerobic Blood Culture - Preliminary Blood - Venous Gram Positive Cocci Anaerobic Blood Culture - Preliminary NO GROWTH AFTER 2 DAYS 01/19/21 07:24 MRSA Surveillance Culture - Final Nasal, Unspecified NO MRSA ISOLATED Med Orders - Current: Current Medications Acetaminophen (Acetaminophen 325 Mg Tab) 650 mg PO Q4H PRN PRN Reason: Pain (Mild 1-3)/fever Hydrocodone Bitart/Acetaminophen (Acetaminophen/Hydrocodone 325-5 Mg Tab) 1 tab PO Q4H PRN PRN Reason: Pain (moderate 4-6) Hydrocodone Bitart/Acetaminophen (Acetaminophen/Hydrocodone 325-5 Mg Tab) 1 tab PO TID [facility] Last Admin: 01/21/21 08:37 Dose: 1 tab Documented by: Albuterol/Ipratropium (Albuterol/Ipratropium 3.0-0.5 Mg/3 Ml Neb Soln) 3 ml NEB QIDRT [facility] Last Admin: 01/21/21 07:26 Dose: 3 ml Documented by: Atorvastatin Calcium (Atorvastatin 10 Mg Tab) 10 mg PO BEDTIME [facility] Last Admin: 01/20/21 20:03 Dose: 10 mg Documented by: Budesonide (Budesonide 0.5 Mg/2 Ml Neb Susp) 0.5 mg NEB BIDRT [facility] Last Admin: 01/21/21 07:27 Dose: 0.5 mg Documented by: Cyclobenzaprine HCl (Cyclobenzaprine 10 Mg Tab) 10 mg PO TID PRN PRN Reason: Muscle Spasm - Painful Docusate Sodium (Docusate Sodium 100 Mg Cap) 100 mg PO BID [facility] Last Admin: 01/21/21 08:36 Dose: 100 mg Documented by: Enoxaparin Sodium (Enoxaparin 80 Mg/0.8 Ml Syringe) 80 mg SUBCUT BID [facility] Last Admin: 01/21/21 08:36 Dose: 80 mg Documented by: Hydromorphone HCl (Hydromorphone 1 Mg/Ml Syringe) 1 mg IVPUSH Q4H PRN PRN Reason: Breakthrough Pain Vancomycin HCl 1 gm/ Sodium (Chloride) 250 mls @ 250 mls/hr IV DAILY@0600 [facility] Last Admin: 01/21/21 05:21 Dose: 250 mls/hr Documented by: Ciprofloxacin/Dextrose 400 mg/ (Premix) 200 mls @ 200 mls/hr IV Q8H [facility] Last Admin: 01/21/21 04:25 Dose: 200 mls/hr Documented by: Cefepime HCl 2 gm/ Sodium (Chloride) 100 mls @ 25 mls/hr IV Q12H [facility] Last Admin: 01/21/21 06:40 Dose: 25 mls/hr Documented by: Levothyroxine Sodium (Levothyroxine 75 Mcg Tab) 75 mcg PO ACBREAKFAST [facility] Last Admin: 01/21/21 06:14 Dose: 75 mcg Documented by: Lorazepam (Lorazepam 0.5 Mg Tab) 0.5 mg PO TID PRN PRN Reason: Anxiety Last Admin: 01/20/21 23:56 Dose: 0.5 mg Documented by: Magnesium Oxide (Magnesium Oxide 400 Mg Tab) 400 mg PO DAILY [facility] Last Admin: 01/21/21 08:36 Dose: 400 mg Documented by: Melatonin (Melatonin 3 Mg Tab) 6 mg PO BEDTIME [facility] Last Admin: 01/20/21 20:04 Dose: 6 mg Documented by: Metolazone (Metolazone 2.5 Mg Tab) 2.5 mg PO Fr@0800 [facility] Last Admin: 01/21/21 08:36 Dose: 2.5 mg Documented by: Lubiprostone 24 Mcg (CapOwn Med) 24 mcg PO BIDMEALS [facility] Last Admin: 01/20/21 11:00 Dose: Not Given Documented by: Pantoprazole Sodium (Pantoprazole 40 Mg Vial) 40 mg IVPUSH DAILY [facility] Last Admin: 01/21/21 08:36 Dose: 40 mg Documented by: Polyethylene Glycol (Polyethylene Glycol 3350 Powder 17 Gm Packet) 17 gm PO DAILY [facility] Last Admin: 01/21/21 08:38 Dose: Not Given Documented by: Sertraline HCl (Sertraline 50 Mg Tab) 50 mg PO DAILY [facility] Last Admin: 01/21/21 08:36 Dose: 50 mg Documented by: Sodium Chloride (Sodium Chloride 0.9% 10 Ml Syringe) 10 ml FLUSH ASDIRECTED PRN PRN Reason: Keep Vein Open Last Admin: 01/20/21 16:17 Dose: 10 ml Documented by: Vancomycin HCl (Pharmacy To Dose - Vancomycin) 1 dose .XX ASDIRECTED [facility] Stop: 01/26/21 08:01 Discontinued Medications Albuterol/Ipratropium (Albuterol/Ipratropium 3.0-0.5 Mg/3 Ml Neb Soln) 3 ml NEB ONETIME STA Stop: 01/19/21 10:06 Last Admin: 01/19/21 10:12 Dose: 3 ml Documented by: Cefepime HCl (Cefepime 2 Gm Vial) 2 gm IVPUSH STAT ONE Stop: 01/19/21 04:13 Last Admin: 01/19/21 04:20 Dose: 2 gm Documented by: Enoxaparin Sodium (Enoxaparin 40 Mg/0.4 Ml Syringe) 40 mg SUBCUT DAILY@2000 [facility] Vancomycin HCl 1 gm/ Sodium (Chloride) 250 mls @ 250 mls/hr IV STAT ONE Stop: 01/19/21 05:12 Last Admin: 01/19/21 04:38 Dose: 250 mls/hr Documented by: Ciprofloxacin/Dextrose 400 mg/ (Premix) 200 mls @ 200 mls/hr IV STAT ONE Stop: 01/19/21 07:00 Last Admin: 01/19/21 06:55 Dose: 200 mls/hr Documented by: Cefepime HCl 2 gm/ Sodium (Chloride) 100 mls @ 25 mls/hr IV Q12H [facility] Last Admin: 01/19/21 15:29 Dose: 25 mls/hr Documented by: Ciprofloxacin/Dextrose 400 mg/ (Premix) 200 mls @ 200 mls/hr IV Q8H [facility] Last Admin: 01/20/21 22:00 Dose: 200 mls/hr Documented by: Vancomycin HCl 1 gm/ Sodium (Chloride) 250 mls @ 250 mls/hr IV Q24H [facility] Last Admin: 01/20/21 03:11 Dose: 250 mls/hr Documented by: Cefepime HCl 2 gm/ Sodium (Chloride) 100 mls @ 25 mls/hr IV Q12H [facility] Last Admin: 01/20/21 16:17 Dose: 25 mls/hr Documented by: Sodium Chloride (Normal Saline) 250 mls @ 100 mls/hr IV ASDIRECTED [facility] Stop: 01/20/21 03:14 Last Admin: 01/20/21 02:36 Dose: 100 mls/hr Documented by: Sodium Chloride (Normal Saline) 500 mls @ 500 mls/hr IV ONETIME ONE Stop: 01/20/21 22:15 Last Admin: 01/20/21 21:24 Dose: 500 mls/hr Documented by: Iopamidol (Iopamidol 612 Mg/Ml 100 Ml Bottle) 100 ml IVPUSH ONETIME ONE Stop: 01/19/21 05:15 Last Admin: 01/19/21 05:21 Dose: 100 ml Documented by: Labetalol HCl (Labetalol 20 Mg/4 Ml Syringe) 10 mg IVPUSH NOW STA; Protocol Stop: 01/19/21 17:47 Last Admin: 01/19/21 18:03 Dose: 10 mg Documented by: Pantoprazole Sodium (Pantoprazole 40 Mg Tab.Cr) 40 mg PO DAILY [facility] Last Admin: 01/19/21 09:28 Dose: Not Given Documented by: - Exam Quality Assessment: Supplemental Oxygen (1L per NC with sats in the upper 90s) General: Alert, Oriented HEENT: EOMI, Other (mucous membranes tacky) Neck: Supple Lungs: Rhonchi (bilateral bases, L>R) Cardiovascular: Regular Rhythm, Tachycardia GI/Abdominal Exam: Normal Bowel Sounds, Soft, Non-Tender Extremities: Pedal Edema Skin: Warm, Dry Wound/Incisions: Healing Well, Other (dressins moist with serosanguinous fluid) Neurological: No New Focal Deficit Psy/Mental Status: Alert, Normal Affect, Normal Mood, Labile Mood (patient's mood is labile/fiesty at baseline. Maybe a bit more agitated this morning.) - Patient Data Lab Results Last 24 hrs: Laboratory Results - last 24 hr 01/21/21 01/21/21 Range/Units 06:18 06:18 WBC 9.2 (4.0-10.0) x10^3/uL RBC 2.25 L (4.00-5.50) x10^6/uL Hgb 7.3 L (12.0-16.0) g/dL Hct 23.4 L (33.0-47.0) % MCV 104.0 H (78.0-93.0) fL MCH 32.4 H (26.0-32.0) pg MCHC 31.2 L (32.0-36.0) g/dL RDW Coeff of [place] 15.7 H (10.0-15.0) % Plt Count 348 (130-400) x10^3/uL Add Manual Diff Yes Neutrophils % (Manual) 82 H (50-80) % Band Neutrophils % 3 (0-6) % Lymphocytes % (Manual) 13 L (25-50) % Monocytes % (Manual) 2 (2-11) % Platelet Estimate Adequate Polychromasia 2+ moderate H Hypochromasia 2+ moderate H Anisocytosis 2+ moderate H Macrocytosis 3+ marked H Sodium 141 (136-145) mmol/L Potassium 4.3 (3.5-5.1) mmol/L Chloride 109 H (98-107) mmol/L Carbon Dioxide 25 (21-32) mmol/L Anion Gap 11.3 (5-15) mmol/L BUN 29 H (7-18) mg/dL Creatinine 1.2 H (0.55-1.02) mg/dL Est Cr Clr Drug Dosing 31.40 mL/min Estimated GFR (MDRD) 43 Glucose 141 H (70-99) mg/dL Calcium 8.3 L (8.5-10.1) mg/dL Result Diagrams: 01/21/21 06:18 01/21/21 06:18 Ferdinand Results Last 24 hrs: Microbiology 01/19/21 04:21 Aerobic Blood Culture - Preliminary Blood - Venous - Lab Draw NO GROWTH AFTER 2 DAYS Anaerobic Blood Culture - Preliminary NO GROWTH AFTER 2 DAYS 01/19/21 04:15 Aerobic Blood Culture - Preliminary Blood - Venous Gram Positive Cocci Anaerobic Blood Culture - Preliminary NO GROWTH AFTER 2 DAYS 01/19/21 07:24 MRSA Surveillance Culture - Final Nasal, Unspecified NO MRSA ISOLATED Sepsis Event Note - Evaluation Sepsis Screening Result: Sepsis Risk - Focused Exam Vital Signs: Vital Signs Temp Pulse Resp BP Pulse Ox Pulse Ox 01/21/21 07:28 100 01/21/21 06:00 98 F 108 H 28 H 96/39 L 92 L 01/21/21 05:29 94 L 01/21/21 04:27 115 H 26 H 96/39 L 94 L 01/21/21 02:53 128 H 26 H 78/48 L 94 L 01/21/21 01:00 98.8 F 170 H 26 H 77/48 L 94 L 01/21/21 00:00 158 H 26 H 88/45 L 96 01/20/21 22:51 98 F 160 H 25 H 77/50 L 94 L 01/20/21 22:43 94 L 01/20/21 22:42 94 L 01/20/21 21:15 98.4 F 152 H 24 H 77/43 L 93 L - Problem List & Annotations (1) Pulmonary embolism SNOMED Code(s): 69552019 Code(s): I26.99 - OTHER PULMONARY EMBOLISM WITHOUT ACUTE COR PULMONALE Status: Acute Current Visit: Yes (2) Aspiration pneumonia SNOMED Code(s): 614947514 Code(s): J69.0 - PNEUMONITIS DUE TO INHALATION OF FOOD AND VOMIT Status: Acute Current Visit: Yes (3) Hypoxia SNOMED Code(s): 872207262 Code(s): R09.02 - HYPOXEMIA Status: Acute Current Visit: Yes (4) Physical deconditioning SNOMED Code(s): 24471582799466 Code(s): R53.81 - OTHER MALAISE Status: Acute Current Visit: Yes (5) Postoperative anemia SNOMED Code(s): 108088818, 172803048 Code(s): D64.9 - ANEMIA, UNSPECIFIED Status: Acute Current Visit: Yes - Problem List Review Problem List Initiated/Reviewed/Updated: Yes - My Orders Last 24 Hours: My Active Orders 01/20/21 08:00 Pantoprazole [ProTONIX IV] 40 mg IVPUSH DAILY Sertraline [Zoloft] 50 mg PO DAILY 01/20/21 12:25 EKG 12 Lead [EKG Documentation Completion] [] STAT 01/20/21 15:35 Communication Order [] 01/20/21 Dinner Soft Diet [DIET] 01/21/21 05:00 Ciprofloxacin in D5W [Cipro in D5W 400 MG/200 ML] 400 mg Premix Bag 1 bag IV Q8H 01/21/21 06:00 Vancomycin 1 gm Sodium Chloride 0.9% [Normal Saline (AdvBag)] 250 ml IV D AILY@0600 01/21/21 07:00 Cefepime [Maxipime] 2 gm Sodium Chloride 0.9% [Normal Saline] 100 ml IV Q12H 01/21/21 08:00 metOLazone [Zaroxolyn] 2.5 mg PO Fr@0800 - Plan Plan:: Elizabeth is an 85yoF who is HD #3 for treatment of Acute hypoxic respiratory failure secondary to PE and likely aspiration pneumonia Acute Hypoxic Respiratory Failure - improved Pulmonary embolism, provoked Suspected Aspiration Pneumonia Encephalopathy likely secondary to the above - improved - Chest x-ray demonstrating a left lower lobe pneumonia - CTA chest with right subsegmental PE - Clinical status improving, patient on 1L of O2 at home while up/ambulating as well as at night Plan: - Continue vancomycin (pharmacy to dose), cefepime, Cipro - Continuous pulse oximetry - Okay to wean O2 to maintain oxygen saturations between 92-98% - Daily CBC - OK to start incentive spirometry - Lovenox 80 mg twice a day - Speech therapy consult for swallow evaluation Status post left hip surgery Postoperative Anemia - Patient discharged on oxycodone 5 mg daily. Concern that this change in her pain medication may have been leading to worsening mental status leading to the above - Hgb stable especially in the setting of some IV fluids (abx and small boluses) being given. No sign of acute blood loss on exam. Plan: - Continue home [place]/flexeril now that alert, dilaudid for breakthrough - PT/OT - Daily CBC - Dressing changes as needed Tachycardia - Likely compensatory for PE - Heart rates 100-140 - Sounds regular, EKG (01/20/21) confirmed sinus tachycardia Plan: - Continue to monitor Hypotension - Patient chronically runs SBP in the 90-100 range Plan: - Continue to monitor, slow small bolus if needed Chronic: - Hypertension/HFrEF: holding lasix at this time, continue midodrine - Osteoporosis: Holding Fosamax while she is in the hospital - HLD: Continue home Lipitor - Chronic pain: See above, holding lubiprostone (if constipation will need to restart) - Hypothyroidism: Continue home Synthroid - COPD: Continue home Pulmicort, DuoNeb as needed - Anxiety/depression: Continue home Zoloft and Ativan when necessary - GERD: continue home protonix Diet: Heart healthy DVT: Lovenox as above for postoperative status/PE Code: DNR/DNI Disposition: Improved. Patient continues to be alert and almost back to baseline mentation. O2 needs almost reflecting baseline home needs. Will continue impatient management with IV antibiotics and therapeutic lovenox. Will trial rosas pull today (placed post-operatively for urinary retention). Advance with therapies as tolerated.
[2021-01-21] MEDS: atorvaSTATin 10 MG Tab PO SCH (20:30)
[2021-01-21] MEDS: Melatonin 3 MG Tab PO SCH (20:30)
[2021-01-22] MEDS ORDERED: Naloxone 0.4 MG/ML SDV IVPUSH STA (02:33)
[2021-01-22] MEDS ORDERED: Sodium Chloride 0.9% 1,000 ML IV ONE (02:34)
[2021-01-22 02:42] LABS: BASE EXCESS ARTERIAL -6 mmol/L ((-2)-(+3)); BICARBONATE,ARTERIAL 26 mmol/L (21-28); PCO2 ARTERIAL 114 mmHG (35-48); PO2 ARTERIAL 69 mmHG (83-108)
[2021-01-22] MEDS ORDERED: Naloxone 0.4 MG/ML SDV ONE ×2 (02:48→02:49)
[2021-01-22 03:00] LABS: ANION GAP 12.9 mmol/L (5-15)
[2021-01-22] MEDS ORDERED: Furosemide 20 MG/2 ML VIAL IV ONE (03:57)
--- NOTE | 2021-01-22 04:13 | PCM.SN.2 ---
- Free Text/Narrative Note: Subjective: I was summoned to the floor for rapid response as I am the ER provider for this code level 2 patient who is currently in the hospital for acute hypoxic respiratory failure provoked pulmonary embolism concern for aspiration pneumonia who is on multiple antibiotics. Earlier in the evening the patient received her p.o. pills and started to cough gag sputter and had difficulty swallowing them and there was some concerns of aspiration. Throughout the night she has had decreasing level of consciousness and or change in respiratory pattern. She has been hypoxic in the low 80s and they are unable to get her oxygenation up. She has been hypotensive as well. Medications that were concerned of aspiration was hydrocodone as well as trazodone Objective: General: Patient is unresponsive no spontaneous movement. She has shallow ineffective respiratory effort. Neuro: Unresponsive. Pupils are sluggish bilaterally. Respiratory: Weak shallow respirations. Somewhat gasping. Airway is maintained. Decreased lung sounds bilaterally with inspiratory and expiratory wheezing. Crackles heard bilaterally. CV: Distant heart tones. Impressive JVD. Abdomen: Soft hypoactive bowel sounds. Extremities: No spontaneous movement. Weak peripheral pulses. Quite a bit of peripheral edema 2-3+ pitting in the left. 1-2 on the right. Surgical incision of the lateral hip unremarkable. Vital signs: Blood pressure 86/33, heart rate of 62, oxygen saturation on 10 L nonrebreather mask 82%. Respiratory rate 12 shallow ineffective. Immediate bedside course: Started a fluid bolus 500 mils normal saline. Multiple attempts at a second IV for blood draw as well by ultrasound completed by myself. Patient was placed on BiPAP with IPAP of 20, EPAP of 10 FiO2 100%. ABGs drawn and reviewed extemporaneously by myself. With a pH of 6.79, PCO2 114, PO2 69, bicarb 26, base excess -6. This patient is clearly in hypoxic respiratory failure hypotensive. She has been receiving multiple antibiotics to include cefepime as well as ciprofloxacin. Due to concern of aspiration pneumonia. I did discuss his case with Dr. Ruth Robb who is distribution tech as well. She has concerns for this patient's anemia that she has had over the past couple of days and she has been receiving increased fluid boluses with some labile blood pressures. I did review the patient's chart and it appears that she has an ejection fraction of 20% with a echo that was completed 7-22-21. The patient has global hypokinesis of the left ventricle. Bedside ultrasound of the chest initially reviewed and completed by myself shows no sign of pneumothorax. Bedside ultrasound of the abdomen shows an expanded noncontracting inferior vena cava with respirations with a rather generous right ventricle concerning for fluid overload. Completed and reviewed extemporaneously by myself at the bedside. No sign of pericardial effusion in the cardiac windows. The patient continued to be hypotensive. She is a code level 2. Laboratory evaluation with a WBC of 11.5, hemoglobin of 8.1, platelets of 379. Chloride 110, BUN 37, creatinine 1.4 which is up from 1.2 yesterday. Glucose 187 Her lactic acid is normal at 1.2. Her procalcitonin is minimally elevated at 0.23 up from 0.14 just 2 days ago[place] [address]. Assessment/plan: #1: Exacerbation of hypercapnic respiratory failure in the presence of hypoxia concern for aspiration as well as known pulmonary embolism. Placed on BiPAP will continue to monitor. Repeat venous blood gases in 2 hours. BiPAP as above. After about 45 minutes of being on the BiPAP the patient did start opening her eyes spontaneously. And having some spontaneous movements. We will continue the BiPAP at this time #2: Acute obtundation unresponsive most likely due to #1. BiPAP at this time. We also did attempt a small dose of Narcan 0.4 as she has been receiving small amounts of narcotics due to her recent hip repair. Without much improvement from the Narcan. #3: Hypotension. Does not appear to be related to sepsis in nature. She is on cefepime as well as ciprofloxacin. She has a normal lactic acid. Her procalcitonin is not greatly increased. This might actually be due to her heart failure with reduced ejection fraction. I did discuss this with Dr. Miranda And db we will try some low-dose Lasix at this time especially with her rather expanded inferior vena cava by ultrasound. This is rather tenuous as she is hypotensive although this may assist in her cardiac output by decreasing her afterload improving her hypotension. She is a code level 2 we are unable to initiate vasopressors at this time. Does not sound like there is any family managing the patient as well. The patient has also had some anemia over the past couple of days. She has been receiving quite a bit of IV hydration for some labile blood pressures. Her proBNP is quite elevated. She is on Zaroxolyn. We will place a Damian catheter at this time for observation of urinary output. #4: Acute kidney injury. This could be multifactorial. Due to the hypotension which I am assuming at this time is caused by fluid overload in the presence of heart failure with reduced ejection fraction. Continue to monitor. This patient status is serious/critical at this time. Unable to get a hold of next of kin. 75 minutes of critical care time for this rapid response in direct patient care management and consultation with the patient's supervising provider. Including multiple ultrasounds for placement of IVs as well as cardiac windows and inferior vena cava assessing for cause of hypotension. Reviewing and interpreting multiple tests. Reviewing and going through multiple patient charts as this patient is unknown to me.
[2021-01-22] MEDS: Ciprofloxacin in D5W 400 MG in Premix Bag 1 BAG IV SCH ×2 (04:31)
[2021-01-22 05:17] LABS: BASE EXCESS VENOUS -8 mmol/L ((-2)-3); BICARBONATE,VENOUS 23 mmol/L (22-29); O2 SATURATION VENOUS 46 %; PCO2 VENOUS 94 mmHG (41-51); PO2 VENOUS 39 mmHG
[2021-01-22] MEDS ORDERED: Furosemide 40 MG/4 ML VIAL IV ONE (05:34)
[2021-01-22] MEDS: Cefepime 2 GM in Sodium Chloride 0.9% 100 ML IV SCH (06:13)
[2021-01-22] MEDS: Levothyroxine 75 MCG Tab PO SCH (06:14)
[2021-01-22 06:31] VITALS: BP 83/25; PULSE 67
[2021-01-22] MEDS: Albuterol/Ipratropium 3.0-0.5 MG/3 ML Neb Soln NEB SCH (07:01)
[2021-01-22] MEDS: Budesonide 0.5 MG/2 ML Neb Susp NEB SCH (07:01)
[2021-01-22] MEDS: Docusate Sodium 100 MG Cap PO SCH (08:19)
[2021-01-22] MEDS: Pantoprazole 40 MG Vial IVPUSH SCH (08:20)
[2021-01-22] MEDS: Polyethylene Glycol 3350 Powder 17 GM Packet PO SCH (08:20)
[2021-01-22] MEDS: Acetaminophen/HYDROcodone 325-5 MG Tab PO SCH (08:20)
[2021-01-22] MEDS: Magnesium Oxide 400 MG Tab PO SCH (08:20)
[2021-01-22] MEDS: Sertraline 50 MG Tab PO SCH (08:20)
[2021-01-22] MEDS: Enoxaparin 80 MG/0.8 ML Syringe SUBCUT SCH (08:20)
[2021-01-22] MEDS ORDERED: LORazepam 2 MG/ML SDV IV PRN (08:41)
[2021-01-22] MEDS ORDERED: Atropine 1% Ophth Soln 5 ML BOTTLE SL PRN (08:41)
[2021-01-22] MEDS ORDERED: Morphine 2 MG/ML SYRINGE SUBCUT PRN (08:41)
[2021-01-22] MEDS ORDERED: Ondansetron 4 MG/2 ML SDV IVPUSH PRN (08:41)
--- NOTE | 2021-01-22 11:08 | DISCH ---
SUMMARY PRIMARY CAUSE OF : 1. Cardiogenic shock due to acute hypoxic and hypercapnic respiratory failure with chronic systolic heart failure, EF of 20%. 2. Acute on chronic systolic heart failure exacerbation (EF 20 %) likely due to fluids needed to be given for hypotension. 3. Aspiration pneumonia, on antibiotics, IV. 4. Previous left hip fracture, 01/12/2021, fixed at [place], had recently been discharged to the long term for therapies. 5. COPD with history of smoking. 6. Essential hypertension. 7. Cognitive dysfunction, chronic, but the patient was her own decision maker. 8. Osteoporosis. 9. Chronic low back pain with opioid use. 10.Pulmonary embolism, likely postoperative from her hip surgery. She was on Lovenox and it was only a segmental PE so likely did not contribute to her passing. 11.GERD. 12.Hypothyroidism. 13.Anxiety. 14.Depression. REASON FOR ADMISSION: On the date of admission, this 85-year-old female who had just been sent like the day before to [facility] for further therapies after a hip fracture, had an event during the middle of the night where she was hypoxic with O2 sats down into the 70s. Her blood pressure was 60 systolic. She was placed on 2 L nasal cannula and sent over to the emergency room. She eventually needed a non-rebreather. X-ray was showing a left lower lobe infiltrate. CTA initially was read as negative, but then later it was reported that she had a segmental pulmonary embolism and she was started on Lovenox but due to lower hemoglobins after her surgery and decreasing down to 7.3, she was not started on Coumadin. However, no blood transfusion was given and actually this morning, her hemoglobin was 8.1. She had no signs of any ongoing bleeding, but she received several small fluid boluses for hypotension and tachycardia, which was felt to be reflexive tachycardia, and her tachycardia had improved but unfortunately, her respiratory status further deteriorated. She was taking her pills at night and it was felt that she aspirated a little bit more and then required her oxygen to have been increased from 1 L up to non-rebreather again. Unfortunately, she continued to deteriorate and eventually was placed on BiPAP and had the x-ray done showing a worsening pneumonia and actually now more fluid and an infiltrate on the right side of her chest which was two-thirds of the way up and the ABG was done at this time with her PCO2 up to 114, and her pH is 6.9, also with low blood pressures in the 70s. The patient's goals of care were not to be intubated or have aggressive measures. Ultrasound also at the bedside showed dilated vena cava (per ER) and I could see extensive JVD just by regular examine, it was felt that the patient was in cardiogenic shock and heart failure. Decision was made to give her Lasix for comfort and breathing. However, she had no urine output after the Damian was placed from the additional Lasix that was given and multiple attempts were made to contact her salesperson neckties, Daly Naranjo but I was unable. Eventually after calling her primary care, decision was made to withdraw the BiPAP as the patient's clinical prognosis was extremely guarded, and patient peacefully at 8:57 within a few minutes of withdrawing the BiPAP. In fact, patient was resting so peacefully, comfortably, and passing quickly in that no narcotics even needed to be given. She really was not struggling to breathe. She was just very unresponsive. I was then able to contact her previous living facility, [facility]. She was just out at the long term recovering from that hip fracture. They gave me her sister, Janine' number, who I did contact and notified her of the patient's and the home was also notified. So therefore, patient of her medical conditions and discussion had with the sister. Her sister said she has been suffering for like 10 years. In fact, I cared for her a year ago for heart failure and she elected to have no CPR, no intubation already at that time and given that the patient was her own decision maker on the list at the care center with her 2nd contact was herself, we honored her wishes and she . On admission, even so her condition was already overall guarded and she had a slight improvement on her 2nd hospital day but then started to deteriorate with worsening confusion that I suspect was related to worsening hypercapnia in retrospect. She did not officially get switched to comfort cares until this morning when we withdrew the BiPAP. MKA: 01/22/2021 10:25:38 MODL: 01/22/2021 10:59:49 /[id number] [facility]
--- NOTE | 2021-01-22 13:35 | CR ---
[id number] RAD/RAD Chest PA or AP 1V EXAM: RAD Chest PA or AP 1V INDICATION: HYPOXIA, ASPIRATION. COMPARISON: January 19, 2021 DISCUSSION: Cardiomediastinal silhouette is stable in size and contour. Increasing right pleural effusion. Stable small left pleural effusion. Additionally there are new patchy pulmonary infiltrates bilaterally, right greater than left. No pneumothorax. Pulmonary hyperinflation. IMPRESSION: 1. Increasing right pleural effusion with new patchy pulmonary infiltrates bilaterally, right greater than left. This may represent asymmetric edema versus pneumonia. Glenn Lei DO 01/22/21 [id number] Thank you for allowing us to participate in the care of your patient.
--- NOTE | 2021-01-25 09:38 | PCM.EKG ---
#1 Interpretation EKG Date: 01/20/21 Rhythm: NSR EKG Interpretation Comments: Sinus tachycardia with LBBB. Unchanged from previous outpatient EKGs
== END 2021-01-22 08:57 | disposition expired | DRG 205 ==
LOC: VM.ED 03:30 → UNDOADMIN 06:00 → VM.MS 06:00 → VM.ED 06:05 → VM.MS 07:52 → UNDODISIN 01-22 08:57
PROVIDERS: ADMIT Family Medicine; ATTEND Family Medicine
PROC: 5A09357 Assistance with Respiratory Ventilation, Less than 24 Consecutive Hours, Continuous Positive Airway Pressure (ICD-10-PCS; principal; 2021-01-19)
DX: A41.9 Sepsis, unspecified organism (principal); J95.89 Other postprocedural complications and disorders of respiratory system, not elsewhere classified; R09.02 Hypoxemia; J69.0 Pneumonitis due to inhalation of food and vomit; I50.23 Acute on chronic systolic (congestive) heart failure; I26.93 Single subsegmental thrombotic pulmonary embolism without acute cor pulmonale; J95.821 Acute postprocedural respiratory failure; N17.9 Acute kidney failure, unspecified; M54.9 Dorsalgia, unspecified; G93.49 Other encephalopathy; T81.718A Complication of other artery following a procedure, not elsewhere classified, initial encounter; Z20.822 Contact with and (suspected) exposure to COVID-19; R57.0 Cardiogenic shock; Z51.5 Encounter for palliative care; Z66 Do not resuscitate; I11.0 Hypertensive heart disease with heart failure; G31.84 Mild cognitive impairment of uncertain or unknown etiology; M54.5 Low back pain; I25.5 Ischemic cardiomyopathy; G89.29 Other chronic pain; K21.9 Gastro-esophageal reflux disease without esophagitis; E03.9 Hypothyroidism, unspecified; S72.002D Fracture of unspecified part of neck of left femur, subsequent encounter for closed fracture with routine healing; F41.9 Anxiety disorder, unspecified; F32.9 Major depressive disorder, single episode, unspecified; M81.0 Age-related osteoporosis without current pathological fracture; F11.90 Opioid use, unspecified, uncomplicated; E78.00 Pure hypercholesterolemia, unspecified; I48.91 Unspecified atrial fibrillation; E55.9 Vitamin D deficiency, unspecified; J43.1 Panlobular emphysema; I71.4 Abdominal aortic aneurysm, without rupture; I05.9 Rheumatic mitral valve disease, unspecified; R33.9 Retention of urine, unspecified; M41.9 Scoliosis, unspecified; I95.9 Hypotension, unspecified; E86.0 Dehydration; D64.9 Anemia, unspecified; Z88.0 Allergy status to penicillin; Z87.891 Personal history of nicotine dependence; Z79.899 Other long term (current) drug therapy; Z79.890 Hormone replacement therapy; Z98.49 Cataract extraction status, unspecified eye; Z98.890 Other specified postprocedural states; Z79.83 Long term (current) use of bisphosphonates; Z79.51 Long term (current) use of inhaled steroids; Z91.81 History of falling
CPT/HCPCS: 36415; 36600; 51702; 70450; 71045; 71275; 80048; 80053; 82803; 83605; 83735; 83880; 84100; 84145; 84484; 85025; 85610; 86140; 86850; 86900; 86901; 86920; 86922; 87040; 87077; 92610-GN; 93005; 93010; 94640; 94660; 94760; 96365; 96367; 96375; 97110-GP; 97163-GP; 97165-GO; 97530-GP; 99284; 99285-25; A9270-GY; C9113; J0692; J0744; J1650; J1940; J2310; J3370; J3490; J7030; J7050; J7620-GY; Q9967; U0002